=== PATIENT | male | born 1940 | race Caucasian/White ===

== ENCOUNTER 2016-09-05 09:16 | Emergency (ER) | payer OTHER ==
[~2016-09-05] VITALS: Ht 172.7 cm; Wt 72.6 kg
[~2016-09-05 09:16] MED LIST: ALPRAZOLAM0.5 M2 PO; ASACOL400 MG; ASPIRIN CHEWABL81 MG PO; ASPRIN; ATORVASTATIN CA10 M1 PO; AZULFIDINE ENT500 MG PO; BENTYL10 MG PO; BENTYL20 MG PO; CALMOSEPTINE1 OIN TP; CITALOPRAM10 MG PO; CRESTOR40 M1 PO; CRESTOR40 MG; EXELON9.5 MG/24 T; FLORASTOR250 MG PO; FLUOXETINE HCL20 MG; GLYBURIDE2.5 MG PO; LANTUS100 U/ML SC; METFORMIN HCL1000 MG; METFORMIN1000 MG PO; MIRTAZAPINE30 M2 PO; NORVASC10 MG PO; NOVOLOG FLEX100 U/ML SC; OMEPRAZOLE20 MG; PLAVIX75 M1 PO; PRAVASTATIN SOD20 MG PO; PRILOSEC20 M2 PO; PRINIVIL10 MG PO; PROMETHAZINE25 MG RC; TRAMADOL HCL; TRAMADOL HCL50 MG PO; VITAMIN D-32000 UNIT PO; ZYPREXA2.5 MG PO; Zofran4 MG PO
[2016-09-05] MEDS ORDERED: PANTOPRAZOLE SO40 MG PO (09:24)
[2016-09-05] MEDS ORDERED: REMERON15 M2 PO (09:24)
[2016-09-05] MEDS ORDERED: ATORVASTATIN CA20 M1 PO (09:25)
[2016-09-05] MEDS ORDERED: LEVOTHYROXINE0.05 MG PO (09:26)
[2016-09-05] MEDS ORDERED: [UNRECOGNIZED DRUG - OTHER] PO (09:26)
[2016-09-05] MEDS ORDERED: XANAX0.5 MG PO (09:27)
[2016-09-05 09:43] LABS: BASO % 0.4 % (0.0-1.0); EOS # 0.2 10*3/uL (0.0-0.4); EOS % 2.6 % (1.0-4.0); HEMATOCRIT 35.6 % (42.0-52.0); LYMPH # 1.4 10*3/uL (1.3-4.4); LYMPH % 17.4 % (27.0-41.0); MEAN CELL VOLUME 95.4 fl (80.0-94.0); MEAN CORPUSCULAR HGB 32.2 pg (27.0-31.0); MEAN CORPUSCULAR HGB CONC 33.7 g/dl (33.0-37.0); MEAN PLATELET VOLUME 9.7 fl (9.6-12.3); MONO # 0.6 10*3/uL (0.1-1.0); MONO % 6.9 % (3.0-9.0); NEUT # 5.8 10*3/uL (2.3-7.9); NEUT % 72.3 % (47.0-73.0); PLATELET COUNT AUTOMATED 148 10*3/uL (130-400); RED BLOOD COUNT 3.73 10*6/uL (4.50-5.90); RED CELL DISTRI WIDTH 13.2 % (0-14.5)
[2016-09-05 09:59] LABS: ALBUMIN 3.8 gm/dl (3.1-4.5); ALKALINE PHOSPHATASE 49 U/L (45-117); BILIRUBIN, TOTAL 0.3 mg/dl (0.2-1.0); BUN 28 mg/dl (7-24); CARBON DIOXIDE 28 mmol/L (21-32); CHLORIDE 105 mmol/L (98-107); EST GLOM FILT AFRICAN AMERICAN > 60 ml/min; GLUCOSE 125 mg/dL (65-99); POTASSIUM 4.5 mmol/L (3.5-5.1); SGOT/AST 16 IU/L (3-35); SGPT/ALT 12 U/L (12-78); SODIUM 139 mmol/L (136-145); TOTAL PROTEIN 7.2 gm/dL (6.4-8.2)
[2016-09-05 10:03] LABS: BILIRUBIN NEGATIVE (NEGATIVE); BLOOD NEGATIVE (NEGATIVE); CLARITY CLEAR (CLEAR); COLOR YELLOW (YELLOW); GLUCOSE NEGATIVE (NEGATIVE); KETONE NEGATIVE (NEGATIVE); LEUKO ESTERASE NEGATIVE (NEGATIVE); NITRITE NEGATIVE (NEGATIVE); PH 5.5 (5.0-9.0); PROTEIN 1+ (NEGATIVE); SPECIFIC GRAVITY >= 1.030 (1.005-1.030); UROBILINOGEN 0.2 E.U./dl (0.2-1.0)
[2016-09-05 10:12] LABS: BACTERIA TRACE; EPITHELIAL CELLS 0-2; MUCOUS 1+; URINE REFLEX COMMENT NO (NO); WBC 0-2 wbc/hpf (0-5)
== END 2016-09-05 11:52 | disposition home or self-care (01) ==
LOC: ED 09:16
PROVIDERS: Emergency Medicine
DX: G89.29 Other chronic pain (principal); R10.84 Generalized abdominal pain; I25.2 Old myocardial infarction; E11.65 Type 2 diabetes mellitus with hyperglycemia; Z95.5 Presence of coronary angioplasty implant and graft; Z86.73 Personal history of transient ischemic attack (TIA), and cerebral infarction without residual deficits; Z90.89 Acquired absence of other organs; Z87.891 Personal history of nicotine dependence; Z79.899 Other long term (current) drug therapy; Z91.011 Allergy to milk products; Z88.8 Allergy status to other drugs, medicaments and biological substances

== ENCOUNTER 2019-06-26 14:32 | Emergency (ER) | payer OTHER ==
[~2019-06-26] VITALS: Wt 70.3 kg
[~2019-06-26 14:32] MED LIST changes: +ATORVASTATIN CA20 M1 PO; +DIVALPROEX SOD250 MG PO; +EXELON13.3 MG/21 T; +LEVOTHYROXINE50 MCG PO; +LIPITOR20 MG PO; +LISINOPRIL20 MG PO; +MEMANTINE HCL10 MG PO; +MIRTAZAPINE15 M2 PO; +PANTOPRAZOLE SO40 MG PO; +REMERON15 M2 PO; +RESTORIL15 MG PO; +SULFASALAZINE500 M1 PO; +VITAMIN D-32000 UNI1 PO; -VITAMIN D-32000 UNIT PO; +XANAX0.5 MG PO; +[UNRECOGNIZED DRUG - OTHER] PO
[2019-06-26 15:20] LABS: BASO % 0.4 % (0.0-1.0); EOS # 0.2 10*3/uL (0.0-0.4); EOS % 2.2 % (1.0-4.0); HEMATOCRIT 34.7 % (42.0-52.0); HEMOGLOBIN 11.3 g/dl (14.0-18.0); LYMPH # 1.8 10*3/uL (1.3-4.4); LYMPH % 26.3 % (27.0-41.0); MEAN CELL VOLUME 94.6 fl (80.0-94.0); MEAN CORPUSCULAR HGB 30.8 pg (27.0-31.0); MEAN CORPUSCULAR HGB CONC 32.6 g/dl (33.0-37.0); MEAN PLATELET VOLUME 9.8 fl (9.6-12.3); MONO # 0.6 10*3/uL (0.1-1.0); MONO % 8.2 % (3.0-9.0); NEUT # 4.4 10*3/uL (2.3-7.9); NEUT % 62.6 % (47.0-73.0); PLATELET COUNT AUTOMATED 174 10*3/uL (130-400); RED BLOOD COUNT 3.67 10*6/uL (4.50-5.90)
[2019-06-26 15:34] LABS: ALBUMIN 3.6 gm/dl (3.1-4.5); ALKALINE PHOSPHATASE 52 U/L (45-117); BUN 27 mg/dl (7-24); CHLORIDE 104 mmol/L (98-107); CREATININE 1.82 mg/dL (0.70-1.30); POTASSIUM 3.9 mmol/L (3.5-5.1); SGOT/AST 17 IU/L (3-35); SGPT/ALT 14 U/L (12-78); SODIUM 138 mmol/L (136-145); TOTAL PROTEIN 7.1 gm/dL (6.4-8.2)
[2019-06-26 15:41] LABS: ACETAMINOPHEN (TYLENOL) < 5.0 ug/ml (10-30); ETHYL ALCOHOL < 3.0 mg/dl (<3)
[2019-06-26 17:13] LABS: URINE AMPHETAMINES < 1000 (1000ng/ml); URINE BARBITURATES < 200 (200ng/ml); URINE BENZODIAZEPINES < 200 (200ng/ml); URINE CANNABINOIDS (THC) < 50 (50ng/ml); URINE COCAINE < 300 (300ng/ml); URINE METHADONE < 300 (300ng/ml); URINE OPIATES < 300 (300ng/ml)
[2019-06-26 17:17] LABS: BILIRUBIN NEGATIVE (NEGATIVE); CLARITY CLEAR (CLEAR); COLOR YELLOW (YELLOW); GLUCOSE NEGATIVE (NEGATIVE); KETONE NEGATIVE (NEGATIVE); SPECIFIC GRAVITY 1.015 (1.005-1.030); URINE PHENCYCLIDINE < 25 (25ng/ml)
[2019-06-26 17:18] LABS: BLOOD TRACE-INTACT (NEGATIVE); LEUKO ESTERASE 2+ (NEGATIVE); NITRITE NEGATIVE (NEGATIVE); UROBILINOGEN 0.2 E.U./dl (0.2-1.0)
[2019-06-26 17:19] LABS: RBC 0-2 rbc/hpf (0-2)
== END 2019-06-27 16:56 | disposition short-term general hospital (02) ==
LOC: ED 14:32
PROVIDERS: Nurse Practitioner Family
DX: N12 Tubulo-interstitial nephritis, not specified as acute or chronic (principal); N39.0 Urinary tract infection, site not specified; R41.82 Altered mental status, unspecified; I12.9 Hypertensive chronic kidney disease with stage 1 through stage 4 chronic kidney disease, or unspecified chronic kidney disease; E11.22 Type 2 diabetes mellitus with diabetic chronic kidney disease; N18.3 Chronic kidney disease, stage 3 (moderate); E03.9 Hypothyroidism, unspecified; J44.9 Chronic obstructive pulmonary disease, unspecified; I25.2 Old myocardial infarction; Z79.899 Other long term (current) drug therapy

== ENCOUNTER 2019-10-17 10:42 | Inpatient (IN) | payer OTHER ==
[~2019-10-17] VITALS: Ht 182.8 cm; Wt 73.9 kg
[2019-10-17 10:51] VITALS: BP 146/66
--- NOTE | 2019-10-17 11:02 | NUR ---
PATIENT DENIES WOUNDS A&OX3.
[2019-10-17 11:22] LABS: BASO # 0.1 10*3/uL (0.0-0.1); BASO % 0.6 % (0.0-1.0); EOS # 0.2 10*3/uL (0.0-0.4); EOS % 2.1 % (1.0-4.0); HEMATOCRIT 35.1 % (42.0-52.0); LYMPH # 1.5 10*3/uL (1.3-4.4); LYMPH % 16.4 % (27.0-41.0); MEAN CELL VOLUME 96.2 fl (80.0-94.0); MEAN CORPUSCULAR HGB 32.1 pg (27.0-31.0); MEAN CORPUSCULAR HGB CONC 33.3 g/dl (33.0-37.0); MONO # 0.7 10*3/uL (0.1-1.0); MONO % 7.3 % (3.0-9.0); NEUT # 6.5 10*3/uL (2.3-7.9); NEUT % 73.4 % (47.0-73.0); PLATELET COUNT AUTOMATED 176 10*3/uL (130-400); RED BLOOD COUNT 3.65 10*6/uL (4.50-5.90); RED CELL DISTRI WIDTH 13.2 % (0-14.5); WHITE BLOOD COUNT 8.9 10*3/uL (4.8-10.8)
[2019-10-17 11:31] LABS: ACT PARTIAL THROMBO TIME 23.9 SECONDS (20.0-32.1); INTERNATIONAL NORM RATIO 0.9 (2.0-3.5)
[2019-10-17 11:37] LABS: ALBUMIN 3.5 gm/dl (3.1-4.5); ALKALINE PHOSPHATASE 60 U/L (45-117); BUN 16 mg/dl (7-24); CHLORIDE 105 mmol/L (98-107); CREATININE 1.35 mg/dL (0.70-1.30); LIPASE 132 U/L (73-393); POTASSIUM 4.1 mmol/L (3.5-5.1); SGOT/AST 11 IU/L (3-35); SGPT/ALT 13 U/L (12-78); SODIUM 136 mmol/L (136-145); TOTAL PROTEIN 7.7 gm/dL (6.4-8.2)
[2019-10-17 11:39] LABS: TROPONIN I 0.057 ng/ml (<0.045)
[2019-10-17 11:41] LABS: BILIRUBIN NEGATIVE (NEGATIVE); BLOOD NEGATIVE (NEGATIVE); CLARITY CLEAR (CLEAR); COLOR YELLOW (YELLOW); GLUCOSE 1+ (NEGATIVE); KETONE NEGATIVE (NEGATIVE); NITRITE NEGATIVE (NEGATIVE); UROBILINOGEN 0.2 E.U./dl (0.2-1.0)
[2019-10-17 11:46] LABS: EPITHELIAL CELLS 0-2; LEUKO ESTERASE TRACE (NEGATIVE)
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
--- NOTE | 2019-10-17 13:22 | NUR ---
[facility] STATES THAT THEY WILL ACCEPT PATIENT AND WILL BE DOWN SHORTLY TO TAKE PATIENT TO [facility].
--- NOTE | 2019-10-17 13:35 | NUR ---
[facility] HERE AT THIS TIME. REPORT GIVEN TO [facility] NURSE SEFERINO.
[2019-10-17 13:40] VITALS: BP 153/69
[2019-10-17] MEDS ORDERED: SENNA PLUS 8.61 EACH PO (13:44)
[2019-10-17] MEDS ORDERED: AMLODIPINE BESY10 MG PO (13:46)
[2019-10-17] MEDS ORDERED: REMERON15 M2 PO (13:47)
[2019-10-17] MEDS ORDERED: NAMENDA10 MG PO (13:48)
[2019-10-17] MEDS ORDERED: NATURE'S BLEND F1 MG PO (13:49)
[2019-10-17] MEDS ORDERED: COREG12.5 M1 PO (13:49)
[2019-10-17] MEDS ORDERED: XANAX0.25 MG PO (13:52)
--- NOTE | 2019-10-17 14:12 | NUR ---
NIXON COLLINS a 79 year old M admitted via wheel chair from the EMERGENCY ROOM as a emergency 72 hr. hold admission. Arrived on unit at 1340 . ALLERGIES: NKA . Vital signs are: 97.3-59-18 153/69. PT REFUSED TO SIGN ANY PAPERWORK STATING "THIS IS THE WORST PLACE IN THE WORLD." PT ALERT TO PERSON ONLY. PT IRRITABLE WITH STAFF, UNCOOPERATIVE WITH ASSESSMENT. PT REFUSED SKIN ASSESSMENT. PT PULLED OUT A WALLET AND A POCKET FULL OF CAHNGE, REFUSING TO GIVE THEM TO STAFF. WE WILL ATTEMPT AT A LATER TIME. PT AMBUALTORY, GAIT UNSTEADY AT TIMES DUE TO RIGHT SIDED WEAKNESS. STAFF ATTEMPTED TO ORDER PT DINNER AND PT STATED "I AIN'T EATING NOTHING, IF U GIVE ME SOMETHING I WILL PISS ON IT." STAFF LEFT ALONE TO CALM. STAFF WILL CONTINUE TO MONITOR PT BEHAVIORS. SEFERINO OLIVA
--- NOTE | 2019-10-17 14:38 | NUR ---
SPOKE WITH DR ANNA RE: MEDICAL MANAGEMENT CONSULT NEEDED PER DR MARADIAGA CONSULT UNDER DR LOUIS.
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
--- NOTE | 2019-10-17 14:53 | NUR ---
SPOKE WITH DR ANNA, RE: EKG RESULTS PER HE WILL TAKE A LOOK, ADVISED DR THAT EKG IS STATING ST ELEVATION SUGGESTS ACUTE PERICARDITIS. PER HE WILL TAKE A LOOK.
--- NOTE | 2019-10-17 15:07 | NUR ---
DR LOUIS AND DR ANNA ON UNIT TO ASSESS PT, UPDATE PROVIDED.
--- NOTE | 2019-10-17 15:24 | NUR ---
LUAN FROM LAB CALLED CRITICAL TROPONIN OF 0.060. DR ANNA UPDATED, NO FURTHER ORDERS AT THIS TIME.
--- NOTE | 2019-10-17 15:37 | NUR ---
PT SHOWERED AT THIS TIME. STAFF WAS ABLE TO LOCK UP HIS WALLET, CHANGE AND BELT. PT COOPERATIVE WITH SHOWER.
--- NOTE | 2019-10-17 15:50 | NUR ---
GROUP B/CRAFTS PT DID NOT ATTEND GROUP THERAPY. PT HAD JUST BEEN ADMITTED TO THE UNIT AND WAS BEING ORIENTED DURING GROUP
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
--- NOTE | 2019-10-17 18:16 | NUR ---
SPOKE WITH DR ANNA AT [phone] RE: PT EKG READY FOR REVIEW. NO FURTHER ORDERS AT THIS TIME.
--- NOTE | 2019-10-17 18:42 | NUR ---
SPOKE WITH DR ANNA AND ADVISED OF CRITICAL TROPONIN OF 0.055 STATED "OK THATS WHAT I EXPECTED. NO FURTHER ORDERS AT THIS TIME.
[2019-10-17 20:00] VITALS: BP 148/74
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
--- NOTE | 2019-10-17 20:43 | NUR ---
CLIENT AGREED TO TAKE ALL MEDICATIONS. IN AND OUT OF ROOM. NO OUTBURSTS AT THIS TIME.
--- NOTE | 2019-10-17 20:46 | NUR ---
CLIENT AGREED TO TAKE ALL MEDICATIONS. IN AND OUT OF ROOM. NO OUTBURSTS AT THIS TIME.
--- NOTE | 2019-10-18 01:47 | NUR ---
AWAKE AND DISORIENTED. REORIENTED TO PLACE AND TIME AND THAT FAMILY IS AWARE THAT HE IS HERE. EMOTIONAL SUPPORT PROVIDED AND HE RETURNED TO BED
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
--- NOTE | 2019-10-18 03:06 | NUR ---
WOUND CARE HERE TO SEE CLIENT
--- NOTE | 2019-10-18 03:30 | NUR ---
INCREASE IN ANXIETY. REQUESTING SOMETHING TO CALM HIM DOWN. NO SHORT TERM MEMORY NOTED. ATIVAN IM GIVEN
--- NOTE | 2019-10-18 05:29 | NUR ---
24 HR chart check completed.
[2019-10-18 06:32] LABS: BASO % 0.6 % (0.0-1.0); EOS # 0.2 10*3/uL (0.0-0.4); EOS % 3.5 % (1.0-4.0); HEMATOCRIT 34.8 % (42.0-52.0); LYMPH # 1.4 10*3/uL (1.3-4.4); LYMPH % 20.7 % (27.0-41.0); MEAN CELL VOLUME 95.3 fl (80.0-94.0); MEAN CORPUSCULAR HGB 32.1 pg (27.0-31.0); MEAN CORPUSCULAR HGB CONC 33.6 g/dl (33.0-37.0); MEAN PLATELET VOLUME 9.4 fl (9.6-12.3); MONO # 0.5 10*3/uL (0.1-1.0); MONO % 7.3 % (3.0-9.0); NEUT # 4.7 10*3/uL (2.3-7.9); NEUT % 67.3 % (47.0-73.0); PLATELET COUNT AUTOMATED 162 10*3/uL (130-400); RED BLOOD COUNT 3.65 10*6/uL (4.50-5.90); RED CELL DISTRI WIDTH 13.2 % (0-14.5); WHITE BLOOD COUNT 6.9 10*3/uL (4.8-10.8)
[2019-10-18 06:49] LABS: ALBUMIN 3.6 gm/dl (3.1-4.5); BUN 19 mg/dl (7-24); CHLORIDE 102 mmol/L (98-107); CHOLESTEROL 120 mg/dL (<200); CREATININE 1.23 mg/dL (0.70-1.30); POTASSIUM 3.8 mmol/L (3.5-5.1); SGOT/AST 14 IU/L (3-35); SGPT/ALT 14 U/L (12-78); SODIUM 135 mmol/L (136-145); TRIGLYCERIDES 124 mg/dl (<150); VLDL CHOLESTEROL 25 mg/dL (6-40)
[2019-10-18 06:58] LABS: ALKALINE PHOSPHATASE 59 U/L (45-117); HDL CHOLESTEROL 40 mg/dl (40-60); LDL CHOLESTEROL 55 mg/dL (9-159); TOTAL PROTEIN 7.5 gm/dL (6.4-8.2)
[2019-10-18 07:49] VITALS: BP 142/65
[2019-10-18 08:12] LABS: VITAMIN D, 25-HYDROXY 30.5 ng/mL (30-100)
--- NOTE | 2019-10-18 08:27 | NUR ---
SPOKE WITH SON NIXON COLON, WHO STATED HE WILL BE GETTING THE POA PAPERS AND BRINGING THEM TO US TODAY.
--- NOTE | 2019-10-18 09:00 | NUR ---
Treatment Plan meeting was held via telephone with Dr. Cano, RN, AT, MANAGER CORPORATE MARKETING-S and Clothes Designer. Plan for discharge Next Week. Pt. will require placment according to Nursing Staff. Will follow with family to discuss discharge Plans.
--- NOTE | 2019-10-18 09:58 | NUR ---
PT AGITATED WITH STAFF, EXIT SEEKING, CURSING AT STAFF, PINCHING, ATTEMPTING TO HIT, YELLING OUT. STAFF PROVIDED EMOTIONAL SUPPORT AND 1:1 FOR PT TO VOICE FEELINGS, PT CONTINUES TO SWING AT STAFF AND CURSE AND NAME CALLING. PT MEDICATED WITH ATIVAN IM PRN PER ORDERS. WILL CONTINUE TO MONITOR.
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
--- NOTE | 2019-10-18 10:45 | NUR ---
GEOFORTINOON EFEFCTIVE, NO FURTHER BEHAVIORS NOTED, PT RESTING QUIETLY WITH EYES CLOSED. WILL CONTINUE TO MONITOR.
--- NOTE | 2019-10-18 11:41 | NUR ---
AM GROUP/RELAXATION PT WAS UNABLE TO ATTEND MORNING GROUP THERAPY. PT WAS IN THE HALLWAY FOR OBSERVATION.
--- NOTE | 2019-10-18 13:15 | NUR ---
SPOKE WITH DR COX RE: PT CURRENTLY SLEEPING AND DUE FOR DEPAKOTE AT THIS TIME, PER DR COX HOLD DEPAKOTE UNTIL PT AWAKE.
--- NOTE | 2019-10-18 14:18 | NUR ---
SILVANO QUIÑONEZ FROM [facility] APPROVED FROM 10/16-10/20 WITH NEXT REVIEW DATE 10/21 WITH RENETTA AT [phone] EXT [phone]. AUTH NUMBER IS [id number].
--- NOTE | 2019-10-18 14:30 | NUR ---
Family meeting held with pt's son Yaya García via phone. Yaya provided additional pt information and events which led to pt's [facility] admission. Indepth discussion about discharge plan. Provided education about payer source for NF and AL. Yaya García would like a referral to [facility]. If pt's behaviors improve to where pt would be appropriate for AL, Yaya would like a referral to [facility] [place] for their memory care unit. Spoke to Yaya García about DPOAHC. He states that he has the document and will bring it in when he drops clothing off for pt.
--- NOTE | 2019-10-18 14:53 | NUR ---
PT WOKE UP, BEGAN ATTEMPTING TO CLIMB OUT OF GERICHAIR, THREATENING STAFF. PT STATED " I'LL FUING BACKHAND YOU AND SEE HOW YOU LIKE THAT." PT REFUSED AFTERNOON DEPAKOTE. ATTEMPTED TO BITE AND HIT STAFF. STAFF OFFERED PT A DRINK, PT REFUSED. STAFF PROVIDED EMOTIONAL SUPPORT AND 1:1 FOR PT TO VOICE FEELINGS, PT STATED "YOU MOTHERFER, GET OVER HERE AND I'LL LINING STITCHER YOU SO HARD YOUR TEETH WILL FALL OUT." PT CONTINUES TO YELL OUT, ATTEMPTING TO STRIKE STAFF. SPOKE WITH DR COX AND UPDATED ON SITUATION, PER DR COX D/C DEPAKOTE AND VERBAL ORDERS GIVEN FOR HALDOL 5 MG PO OR IM IF PT REFUSES, BID TO START NOW. IM HALDOL GIVEN PER ORDERS, SECURITY ON UNIT TO ASSIST. PT ALSO PICKING AT SKIN CAUSING A SKIN TEAR TO LEFT UPPER FOREARM AND LEFT WRIST AREA. WILL CONTINUE TO MONITOR PT.
--- NOTE | 2019-10-18 15:33 | NUR ---
ATTEMPTED TO CALL DR ANNA RE: NEEDING SKIN TEAR ORDERS FOR PT LEFT UPPER ARM AND LEFT THUMB AREA.
--- NOTE | 2019-10-18 15:35 | NUR ---
DR ANNA RETURNED CALL AND UPDATED ON NEED FOR SKIN TEAR ORDERS.
--- NOTE | 2019-10-18 15:39 | NUR ---
GROUP B PT IS UNABLE TO ATTEND GROUP THERAPY AT THIS TIME. PT WAS IN A QUIET ROOM RESTING.
--- NOTE | 2019-10-18 16:18 | NUR ---
HALDOL EFFECTIVE, PT RESTING QUIETLY IN GERICHAIR WITH EYES CLOSED.
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
[2019-10-18 20:00] VITALS: BP 143/63
--- NOTE | 2019-10-19 00:25 | NUR ---
24 HR chart check completed.
--- NOTE | 2019-10-19 02:16 | NUR ---
TOOK TO TOILET AND HE BEGAN SWINGING, KICKING AND TRYING TO BITE. UNABLE TO REDIRECT. CLIENT VOIDED THEN STARTED AGGRESSIVELY STRIKING OUT. SEATED FOR SAFETY WITH 3 STAFF ASSISTANCE. ATIVAN 1MG IM GIVEN
[2019-10-19 08:00] VITALS: BP 138/68
--- NOTE | 2019-10-19 08:08 | NUR ---
NIXON COLLINS [id number] Please refer to the physician's history and physical for past medical history, comorbid conditions, and allergies. Diagnosis: BRIEF PSYCHOTIC DISORDER Hernandez Score: 20,LOW OR NO RISK WOUND DESCRIPTIONS: Wound Number: 1 Location of the wound: left elbow Type of wound: skin tear Thickness: Partial Size: 0.4cm x 0.6cm x 0.1cm Tunneling: none Undermining: none Sinus Tract: none Presence of Exudate: Serosanguineous Amount: Light Color: Red Odor: None Periwound Skin Appearance: ecchymotic Wound edges: approximated Pain (associated with wound): none at time of assessment How does patient state this happened? pt unable to state how this happened Wound Number: 2 Location of the wound: right elbow Type of wound: skin tear Thickness: Partial Size: 1.5cm x 0.6cm x 0.1cm Tunneling: none Undermining: none Sinus Tract: none Presence of Exudate: Serosanguineous Amount: Light Color: Red Odor: None Periwound Skin Appearance: ecchymotic Wound edges: approximated Pain (associated with wound): none at time of assessment How does patient state this happened? pt unable to state how this happened Wound Number: 3 Location of the wound: left upper forearm Type of wound: skin tear Thickness: Partial Size: 0.8cm x 0.3cm x 0.1cm Tunneling: none Undermining: none Sinus Tract: none Presence of Exudate: Serosanguineous Amount: Light Color: Red Odor: None Periwound Skin Appearance: ecchymotic Wound edges: approximated Pain (associated with wound): none at time of assessment How does patient state this happened? pt unable to state how this happened Wound Number: 4 Location of the wound: left dorsal aspect of hand near thumb area Type of wound: skin tear Thickness: Partial Size: 1.5cm x 0.6cm x 0.1cm Tunneling: none Undermining: none Sinus Tract: none Presence of Exudate: Serosanguineous Amount: Light Color: Red Odor: None Periwound Skin Appearance: ecchymotic Wound edges: approximated Pain (associated with wound): none at time of assessment How does patient state this happened? pt unable to state how this happened Surface the patient is resting on: Proform SKIN PREVENTION RECOMMENDATION: 1. Pressure redistribution support surface as appropriate 2. Elevate heels 3. Remove boots/TEDS every shift and reapply 4. Head of bed 30 degrees as tolerated 5. Assess nutrition and hydration 6. Manage moisture 7. Avoid the use of containment devices while in bed 8. Use absorptive products on surfaces limit layers of linens on bed 9. Turn and reposition every 1-2 hours in bed and every 1 hour in chair as tolerated 10. Weight shifts every 15 minutes while up in chair 11. Offloading with pillows or device to keep heels elevated off bed 12. Monitor skin at least every shift 13. Inspect under medical devices twice a day WOUND TREATMENT RECOMMENDATIONS: Continue skin tear guidelines to right elbow, left elbow, left upper forearm and left dorsal aspect of hand near thumb cleanse with nss and apply sureprep around the wound hydrogel to wound bed and cover with optifoam gentle every 2 days and prn for soiling.
--- NOTE | 2019-10-19 08:50 | NUR ---
OT NOTE Occupational therapy evaluation received and chart reviewed. Patient medicated for behavior and was unable to arouse for OT evaluation at this time. Will return at a later date for completion of an OT evaluation. June Bello, OTR/L
--- NOTE | 2019-10-19 09:00 | NUR ---
Treatment Plan meeting wasn held this a.m. with MALENA Smith, RN, AT, ART STUDIO TEACHER-S and Lan Specialist. Plan for discharge Next Week. Pt. is for placement due to family unable to care for patient at home. Son requests referral to [facility].
--- NOTE | 2019-10-19 09:22 | NUR ---
PHYSICAL THERAPY Physical therapy evaluation attempted. Patient medicated for behaviors and unable to arouse for PT services at this time. Will return at a later date to complete PT evaluation. Thank you. Lilia Moore,PT,DPT
--- NOTE | 2019-10-19 09:59 | NUR ---
Dr. Hillman notified of wound care recommendations.
--- NOTE | 2019-10-19 11:36 | NUR ---
Spoke with pt's son Yaya , update given, states he will bring in DPOA papers today with clothes for pt.
--- NOTE | 2019-10-19 11:39 | NUR ---
AM GROUP PT IS UNABLE TO ATTEND GROUP THERAPY AT THIS TIME. PT WAS IN A QUIET ROOM RESTING.
--- NOTE | 2019-10-19 11:53 | NUR ---
Nutritional Support Services Note: Staff to encourage good intake of meals and snacks. Skin tears noted. Will follow if needed. Regular diet as ordered. Trinity Herman Rdn Ld
--- NOTE | 2019-10-19 12:30 | NUR ---
JAVIER returns. Pt. approved for Nursing Facility Placement.
--- NOTE | 2019-10-19 13:38 | NUR ---
GROUP A PT IS UNABLE TO ATTEND GROUP THERAPY AT THIS TIME DUE TO COGNITIVE IMPAIRMENT. PT WAS IN A QUIET ROOM RESTING.
--- NOTE | 2019-10-19 15:34 | NUR ---
Shift chart check completed.
--- NOTE | 2019-10-19 15:42 | NUR ---
GROUP B PT WAS PRESENT AT THE START OF GROUP THERAPY BUT BEGAN EXIT SEEKING AND WAS TRYING TO SLIDE OUT OF THE MOY CHAIR UNDER THE TRAY. PT WAS REMOVED AND PLACED IN THE HALLWAY FOR OBSERVATION BY NURSES.
--- NOTE | 2019-10-19 17:13 | NUR ---
P: CONFUSION, IRRITABLE AND UNPROVOKED AGGRESSION, GRABBING AT MENTAL HEALTH WORKER SHE WALKED BY AND ATTEMPTING TO CLIMB OUT OF CHAIR, HIGH FALL RISK. I: ONE ON ONE, REDIRECTION AND CHANGE OF ENVIRONMENT WITH LOW STIMULI PROVIDED R: EFFECTIVE. PATIENT IS ALERT TO PERSON ONLY WITH CONFUSION. PATIENT REPORTED "THE PRESIDENT WITH A VERY GOOD FRIENT OF MINE". LONG/SHORT TERM MEMORY DEFICITS. MOOD IS IRRITABLE AND AGGRESSIVE, ARGUEMENTIVE AT TIMES. DENIES ANY HALLUCINATIONS, DELUSIONS, HI/SI OR PAIN. NO RESPONSE TO INTERNAL STIMULI OBSERVED. PATIENT WANTING DISCHARGE. PATIENT INTERACTIVE WITH NURSING STAFF AND PARTICIPATED IN GROUP SESSION UNITL BEING DISRUPTIVE AND REMOVED FROM AFTERNOON GROUP. MEDICATION COMPLIANT. Q 15 MINUTE SAFETY CHECKS MAINTAINED. 2 PERSON ASSIST WITH ACTIVITIES OF DAILY LIVING, INCONTINENT OF BOWEL AND BLADDER. SET UP FOR MEALS, INTAKES ARE GOOD WITH ADEQUATE FLUID. AMBULATES WITH 2 STAFF ASSIST. P: CONTINUE TO MONITOR FOR AGGRESSION. PROVIDE ONE ON ONE, REDIRECTION/ORIENTATION, PROVIDING SPACE AND DIVERSIONAL ACTIVITY NEEDED.
[2019-10-19 20:00] VITALS: BP 128/89
--- NOTE | 2019-10-20 01:19 | NUR ---
P-CONFUSION I-REDIRECTION WITH 1:1 THERAPEUTIC INTERVENTIONS AND COMMUNICATION. PRESENT REALITY. EDUCATE AND ENCOURAGE MEDICATION COMPLIANCE R-MEDICATION COMPLIANT AT HS. PATIENT PROVIDED NOURISHMENT AND FLUIDS AT HS. PATIENT SHOWERED THIS SHIFT. PATIENT WITH NO HALLUCINATIONS OR DELUSIONS. PATIENT WITH NO HOMICIDAL IDEATIONS AND DENIES SUICIDAL IDEATIONS AT THIS TIME. P-CONTINUE TO ENCOURAGE MEDICATION COMPLIANCE, CONTINUE TO PRESENT REALITY. ENCOURAGE GROUP THERAPY WHILE AWAKE
--- NOTE | 2019-10-20 02:50 | NUR ---
Patient attempting to climb out of bed without assistance. Patient bumped hand of bed rail and night stand. Bed alarm sounding. Skin tears to right hand with small amount of drainage. Patient assisted to bathroom with assist x 2. Dr. Martínez updated regarding new skin areas. Son, Yaya García, notified. Nursing open pit quarry supervisor aware. Awaiting new orders. Skin tears cleansed and dressing applied at this time
--- NOTE | 2019-10-20 04:51 | NUR ---
PATIENT WITH 6 HOURS OF SLEEP THROUGHOUT SHIFT. Q 15 MINUTE CHECKS MAINTAINED. 24 HR chart check completed.
[2019-10-20 07:49] VITALS: BP 128/53
--- NOTE | 2019-10-20 08:49 | NUR ---
PT IRRITABLE, VERBALLY AGGRESSIVE, CONFUSED, DEMANDING. PT PROVIDED WITH 1:1, ENCOURAGED TO VERBALIZE THOUGHTS, BREAKFAST PROVIDED, ASSISTED TO BATHROOM, REDIRECTED AND REORIENTED. ALL INTERVENTIONS INEFFECTIVE, PT REMAINS UNREDIRECTABLY AGITATED. ATIVAN 1MG PO GIVEN AT THIS TIME FOR AGITATION. WILL CONTINUE TO MONITOR Q15 MIN FOR SAFETY. WILL CONTINUE TO REORIENT AND REDIRECT APPROPRIATE.
--- NOTE | 2019-10-20 11:25 | NUR ---
PRN ATIVAN IS INEFFECTIVE AT THIS TIME. PT IS HITTING, BITING, STANDING IN THE MIDDLE OF THE NAVARRO KICKING AND THREATENING STAFF. SECURITY CALLED FOR BACKUP. KATH ZARCO, MADE AWARE OF PT'S INCREASING AGGRESSION, STATES TO UTILIZE GEODON 10MG IM PER PRN ORDER. GEODON 10MG IM GIVEN TO RIGHT DELTOID AT THIS TIME.
--- NOTE | 2019-10-20 13:30 | NUR ---
BENIGNO GARCIADON EFFECTIVE AT THIS TIME. PT IS RESTING QUIETLY.
[2019-10-20 20:00] VITALS: BP 136/69
--- NOTE | 2019-10-20 23:42 | NUR ---
P-CONFUSION I-REDIRECTION WITH 1:1 THERAPEUTIC INTERVENTIONS AND COMMUNICATION. PRESENT REALITY. EDUCATE AND ENCOURAGE MEDICATION COMPLIANCE R-MEDICATION COMPLIANT AT HS. PATIENT PROVIDED NOURISHMENT AND FLUIDS AT HS. PATIENT WITH INCREASED AGITATION AND AGGRESSION. PATIENT WITH ATTEMPT PUSH TABLE AGAIST OTHER PEERS. PATIENT REMOVED AND 1:1 THERAPEUTIC COMMUNICATION AND DISTRACTION PROVIDED WITH INEFFECTIVE RESULTS. PATIENT AGGRESSIVE WITH NURSING STAFF. PATIENT MEDICATED WITH ATIVAN 1MG PO WITH SOMEWHAT EFFECTIVE RESULTS AT THIS TIME. PATIENT WITH NO HALLUCINATIONS OR DELUSIONS. PATIENT WITH NO HOMICIDAL IDEATIONS AND DENIES SUICIDAL IDEATIONS AT THIS TIME. P-CONTINUE TO ENCOURAGE MEDICATION COMPLIANCE, CONTINUE TO PRESENT REALITY. ENCOURAGE GROUP THERAPY WHILE AWAKE
--- NOTE | 2019-10-21 06:26 | NUR ---
PATIENT SLEPT 3 HOURS OF INTERRUPTED SLEEP THROUGHOUT SHIFT. Q 15 MINUTE CHECKS MAINTAINED. 24 HR chart check completed.
[2019-10-21 08:09] VITALS: BP 144/63
--- NOTE | 2019-10-21 11:07 | NUR ---
DR LOUIS AND DR PINON ON UNIT TO ASSESS PT, UPDATE PROVIDED.
--- NOTE | 2019-10-21 13:21 | NUR ---
PT ATTEMPTING TO CLIMB OUT OF GERICHAIR AND YELLING OUT. STAFF PROVIDED EMOTIONAL SUPPORT AND 1:1 FOR PT TO VOICE FEELINGS, PROVIDED LOW STIMULATION ENVIRONMENT FOR PT TO CALM. PT CONTINUES TO YELL OUT, ATTEMPTING TO BITE, KICK AND HIT. STAFF UNABLE TO REDIRECT, OR CALM PT. PT MEDICATED WITH ATIVAN IM PRN PER ORDERS WILL CONTINUE TO MONITOR/
--- NOTE | 2019-10-21 16:26 | NUR ---
PT REFUSED TO HAVE DRESSINGS CHANGED.
[2019-10-21 16:48] VITALS: BP 160/63
[2019-10-21 19:59] VITALS: BP 166/63
--- NOTE | 2019-10-21 22:15 | NUR ---
P-CONFUSION, AGITATION I-REDIRECTION WITH 1:1 THERAPEUTIC INTERVENTIONS AND COMMUNICATION. PRESENT REALITY. EDUCATE AND ENCOURAGE MEDICATION COMPLIANCE R-MEDICATION COMPLIANT AT HS. PATIENT REFUSED NOURISHMENT BUT PROVIDED FLUIDS AT HS. PATIENT WITH INCREASED AGITATION AND AGGRESSION. PATIENT WITH ATTEMPTS TO STRIKE OUT AT NURSING STAFF. REDIRECTION AN NONPHARMACOLGICAL INTERVENTIONS INEFFECTIVE. PATIENT PROVIDED 1:1 THERAPEUTIC COMMUNICATION AND DISTRACTION PROVIDED WITH INEFFECTIVE RESULTS. PATIENT MEDICATED WITH ATIVAN 1MG PO WITH EFFECTIVE RESULTS AT THIS TIME. PATIENT WITH NO HALLUCINATIONS OR DELUSIONS. PATIENT WITH NO HOMICIDAL IDEATIONS AND DENIES SUICIDAL IDEATIONS AT THIS TIME. P-CONTINUE TO ENCOURAGE MEDICATION COMPLIANCE, CONTINUE TO PRESENT REALITY. ENCOURAGE GROUP THERAPY WHILE AWAKE
--- NOTE | 2019-10-22 05:19 | NUR ---
PATIENT SLEPT 6 HOURS OF UNINTERRUPTED SLEEP THROUGHOUT SHIFT. Q 15 MINUTE CHECKS MAINTAINED. 24 HR chart check completed.
--- NOTE | 2019-10-22 06:36 | NUR ---
DR DE DIOS UPDATED ABOUT PATIENT WITH LOOSE STOOLS THIS SHIFT. DR DE DIOS WITH ORDER FOR C-DIFF. IMODIUM REQUESTED BUT WILL NOT ORDER UNTIL STOOL FOR C-DIFF RETURNS
[2019-10-22 07:40] VITALS: BP 150/79
--- NOTE | 2019-10-22 08:01 | NUR ---
PT DISRUPTIVE IN DINING ROOM YELLING OUT, CURSING. PT REMOVED FROM DINING ROOM AND PLACED IN VIEW OF NURSES. PT YELLING OUT, TRYING TO CLIMB OUT OF GERICHAIR, THREATENING TO HIT STAFF STATING "I'LL FUING KNOCK YOU OUT, GIVE ME YOUR DAMN FINGER AND I'LL BREAK IT." PT SPITTING AT STAFF AND ON THE FLOOR. PT USING VULGAR LANGUAGE TOWARDS STAFF STATING "WHAT ARE YOU GOING TO DO SUCK MY SHYAM?" THEN PROCEEDS TO TELL MULTIPLE STAFF MEMBERS WHILE POINTING AT THEM, "I HOPE YOU DROP RIGHT WHERE YOU STAND RIGHT NOW." 1:1 PROVIDED FOR PT TO VOICE FEELINGS, PT CONTINUES TO CURSE AT AND THREATEN STAFF, SWING AT STAFF. PT MEDICATED WITH ATIVAN 1 MG PO PRN PER ORDERS. WILL CONTINUE TO MONITOR.
--- NOTE | 2019-10-22 08:26 | NUR ---
OT NOTE Occupational therapy order received and chart reviewed. Per discussion over the phone with Delisa from [facility], OTR to hold on an OT evaluation due to patient being combative. Will follow up, thank you. June Bello OTR/L
--- NOTE | 2019-10-22 08:27 | NUR ---
PHYSICAL THERAPY Attempted to see pt on U however per staff (Delisa) pt not appropriate at this time as being combative, will follow. Indiana Walsh PT
--- NOTE | 2019-10-22 09:00 | NUR ---
ATIVAN SLIGHTLY EFFECTIVE, PT SITTING CALMLY IN GERICHAIR.
--- NOTE | 2019-10-22 09:47 | NUR ---
PT RESTLESS, AGITATED WITH STAFF AND PEERS. ASKING TO GO HOME. STAFF PROVIDED EMOTIONAL SUPPORT AND 1:1 FOR PT TO VOICE FEELINGS, PROVIDE DIVERSIONAL ACTIVITIES. PT CURRENTLY IN CHAIR LOOKING AT A MAGAZINE AT THIS TIME. PT SON, NIXON COLON, CALLED IN FOR UPDATE. UPDATE PROVIDED.
--- NOTE | 2019-10-22 10:30 | NUR ---
Treatment Plan meeting was held this a.m. with Dr. Cano, THEATRICAL PERFORMER Sarah, RN, AT, MUSHROOM PACKER-S and Shotweld Operator. Plan for discharge Next Week. Pt. is for Placment. Pt. Son has requested [facility]. Awaiting Behaviors to Normalize to send referrals.
--- NOTE | 2019-10-22 11:10 | NUR ---
Spoke with nurse caring for patient and she states that now is not a good time to assess wounds due to the patient's behavior. Will assess at a later time.
--- NOTE | 2019-10-22 11:33 | NUR ---
AM GROUP/EXERCISE AND REMINISCING PT IS UNABLE TO ATTEND GROUP THERAPY AT THIS TIME. PT WAS IN THE HALLWAY WITH NURSES FOR OBSERVATION.
--- NOTE | 2019-10-22 12:30 | NUR ---
CONTINUED REVIEW COMPLETED AND IP STAY APPROVED FOR 2 DAYS WITH NEXT REVIEW DATE 10/23.
--- NOTE | 2019-10-22 12:53 | NUR ---
PT CURSING AT STAFF, ATTEMPTING TO HIT, THREATENING STAFF.STAFF PROVIDED EMOTIONAL SUPPORT AND 1:1 FOR PT TO VOICE FEELINGS, PROVIDE LOW STIMULATION ENVIRONMENT FOR PT TO CALM, OFFERED MAGAZINE, TO WATCH TV. ALL INTERVENTIONS INEFFECTIVE, PT RESTLESS. WILL CONTINUE TO MONITOR.
--- NOTE | 2019-10-22 14:06 | NUR ---
GROUP A PT IS UNABLE TO ATTEND GROUP THERAPY AT THIS TIME DUE TO COGNITIVE IMPAIRMENT. PT WAS IN THE HALLWAY FOR CLOSE OBSERVATION BY NURSES.
[2019-10-22 19:03] VITALS: BP 150/60
--- NOTE | 2019-10-22 19:44 | NUR ---
IN FRONT OF NURSES STATION. RESTLESS. PULLED SEAT CUSHION OUT AND REFUSES TO HAVE IT PUT BACK ON CHAIR.
--- NOTE | 2019-10-22 20:26 | NUR ---
IN FRONT OF NURSES STATION. RESTLESS. PULLED SEAT CUSHION OUT AND REFUSES TO HAVE IT PUT BACK ON CHAIR.
--- NOTE | 2019-10-22 23:14 | NUR ---
CONTINUALLY CLIMBING OUTOF BED. BROUGHT TO DININGROOM IN MOY CHAIR FOR CLOSER MONITORING.
--- NOTE | 2019-10-22 23:17 | NUR ---
CONTINUALLY CLIMBING OUTOF BED. BROUGHT TO DININGROOM IN MOY CHAIR FOR CLOSER MONITORING.
--- NOTE | 2019-10-23 04:03 | NUR ---
Upon discharge recommend patient to follow up for wound care in outpatient setting continue current wound care orders at discharging facility.
--- NOTE | 2019-10-23 04:05 | NUR ---
24 HR chart check completed. HAS BEEN SLEEPING WELL FOR LAST COUPLE HOURS
--- NOTE | 2019-10-23 04:05 | NUR ---
24 HR chart check completed. HAS BEEN SLEEPING WELL FOR LAST COUPLE HOURS
--- NOTE | 2019-10-23 06:36 | NUR ---
REFUSES TO OPEN EYES AND TAKE DRINK OF WATER PRIOR TO GIVING MEDICATIONS. MEDS HELD
--- NOTE | 2019-10-23 06:36 | NUR ---
REFUSES TO OPEN EYES AND TAKE DRINK OF WATER PRIOR TO GIVING MEDICATIONS. MEDS HELD
--- NOTE | 2019-10-23 07:31 | NUR ---
Patient resting quietly with no c/o discomfort. Respirations easy and regular. Vital signs stable. No overt distress. GIVENS,GEOVANI
[2019-10-23 07:49] VITALS: BP 142/58
--- NOTE | 2019-10-23 07:54 | NUR ---
NIXON COLLINS [id number] Please refer to the physician's history and physical for past medical history, comorbid conditions, and allergies. Diagnosis: BRIEF PSYCHOTIC DISORDER Hernandez Score: 20,LOW OR NO RISK WOUND DESCRIPTIONS: Wound Number: 1 Location of the wound: left elbow Type of wound: skin tear Thickness: Partial Size: 0.4cm x 0.6cm x 0.1cm Tunneling: none Undermining: none Sinus Tract: none Presence of Exudate: Serosanguineous Amount: Light Color: Red Odor: None Periwound Skin Appearance: ecchymotic Wound edges: approximated Pain (associated with wound): none at time of assessment How does patient state this happened? pt unable to state how this happened Wound Number: 2 Location of the wound: right elbow Type of wound: skin tear Thickness: Partial Size: 0.8cm x 0.6cm x 0.1cm Tunneling: none Undermining: none Sinus Tract: none Presence of Exudate: Serosanguineous Amount: Light Color: Red Odor: None Periwound Skin Appearance: ecchymotic Wound edges: approximated Pain (associated with wound): none at time of assessment How does patient state this happened? pt unable to state how this happened Wound Number: 3 Location of the wound: left upper forearm Type of wound: skin tear Thickness: Partial Size: 1.2cm x 0.3cm x 0.1cm Tunneling: none Undermining: none Sinus Tract: none Presence of Exudate: Serosanguineous Amount: Light Color: Red Odor: None Periwound Skin Appearance: ecchymotic Wound edges: approximated Pain (associated with wound): none at time of assessment How does patient state this happened? pt unable to state how this happened Wound Number: 4 Location of the wound: left dorsal aspect of hand near thumb area Type of wound: skin tear Thickness: Partial Size: 1.1cm x 0.5cm x 0.1cm Tunneling: none Undermining: none Sinus Tract: none Presence of Exudate: Serosanguineous Amount: Light Color: Red Odor: None Periwound Skin Appearance: ecchymotic Wound edges: approximated Pain (associated with wound): none at time of assessment How does patient state this happened? pt unable to state how this happened Wound Number: 5 Location of the wound: right hand proximal Type of wound: skin tear Thickness: Partial Size: 0.4cm x 0.6cm x 0.1cm Tunneling: none Undermining: none Sinus Tract: none Presence of Exudate: Serosanguineous Amount: Light Color: Red Odor: None Periwound Skin Appearance: ecchymotic Wound edges: approximated Pain (associated with wound): none at time of assessment How does patient state this happened? pt unable to state how this happened Wound Number: 6 Location of the wound: right hand distal Type of wound: skin tear Thickness: Partial Size: 0.4cm x 0.4cm x 0.1cm Tunneling: none Undermining: none Sinus Tract: none Presence of Exudate: Serosanguineous Amount: Light Color: Red Odor: None Periwound Skin Appearance: ecchymotic Wound edges: approximated Pain (associated with wound): none at time of assessment How does patient state this happened? pt unable to state how this happened all dressings completed per physician orders and tolerated without diffcultly. Surface the patient is resting on: Proform SKIN PREVENTION RECOMMENDATION: 1. Pressure redistribution support surface as appropriate 2. Elevate heels 3. Remove boots/TEDS every shift and reapply 4. Head of bed 30 degrees as tolerated 5. Assess nutrition and hydration 6. Manage moisture 7. Avoid the use of containment devices while in bed 8. Use absorptive products on surfaces limit layers of linens on bed 9. Turn and reposition every 1-2 hours in bed and every 1 hour in chair as tolerated 10. Weight shifts every 15 minutes while up in chair 11. Offloading with pillows or device to keep heels elevated off bed 12. Monitor skin at least every shift 13. Inspect under medical devices twice a day WOUND TREATMENT RECOMMENDATIONS: Continue skin tear guidelines to right elbow, left elbow, left upper forearm, right hand proximal, right hand distal and left dorsal aspect of hand near thumb cleanse with nss and apply sureprep around the wound hydrogel to wound bed and cover with optifoam gentle every 2 days and prn for soiling.
--- NOTE | 2019-10-23 08:31 | NUR ---
Occupational Therapy evaluation completed on three with full evaluation to follow. Recommend occupational therapy per plan of care and SNF upon discharge. Thank you for this referral. June Bello OTR/L
--- NOTE | 2019-10-23 08:35 | NUR ---
Physical Therapy evaluation completed on the U with full evaluation to follow. Recommend physical therapy per plan of care and SNF upon discharge. Thank you for this referral. Indiana Walsh PT
--- NOTE | 2019-10-23 09:00 | NUR ---
Treatment Plan meeting was held this a.m. with MALENA Smith, RN, AT, DIRECTOR HOME HEALTH-S and Lean Manager. Plan for discharge Next Week. Pt. requires placement. Son has requested [facility].
--- NOTE | 2019-10-23 11:35 | NUR ---
AM GROUP/PUZZLES PT WAS PRESENT FOR MORNING GROUP THERAPY BUT IS UNABLE TO PARTICIPATE DUE TO COGNITIVE IMPAIRMENT. PT WAS AGITATED AT THE LOCKED TRAY ON THE MOY CHAIR. PT WAS REDIRECTABLE FOR ONLY A FEW MINUTES. PT IS VERY CONFUSED AND BELIEVES THAT SOMEONE STOLE HIS WALLET AND GLASSES. PT WAS GIVEN HIS GLASSES AND HE WAS CONTENT WITH THAT.
--- NOTE | 2019-10-23 15:22 | NUR ---
Observed pt sitting in jordyn-chair most of the day with tray. Pt was walked by mental health worker this afternoon. Pt walked briefly and then wanted to sit down again. Observed that pt was not aggressive or combative with MHW during this interaction.
--- NOTE | 2019-10-23 15:37 | NUR ---
GROUP B PT ATTENDED GROUP THERAPY AND PARTICIPATED BY SITTING AT A TABLE WITH PEERS AND LISTENING AND OBSERVING. PT EXHIBITED NO ADVERSE BEHAVIORS WHILE IN GROUP.
[2019-10-23 18:58] VITALS: BP 140/61
--- NOTE | 2019-10-23 20:26 | NUR ---
SITTING IN HALLWAY. NONSENSICLE CONVERSATION WITH PEERS. ATE SNACK AND WAS MEDICATION COMPLIANT. NO AGGRESSION NOTED AT THIS TIME. ASKED TO USE PHONE BUT UNABLE TO RECALL WHOM HE WANTS TO CALL. WILL MONITOR FOR BEHAVIOR/MOOD CHANGES AND Q15 MINUTES AND PRN FOR SAFETY
--- NOTE | 2019-10-23 20:38 | NUR ---
TALKED TO HIS SON FOR AWHILE, ASKING HIM TO COME AND GET HIM. HE THEN PASSED THE PHONE TO PEER TO TALK. SON HAPPY TO TALK WITH SON. ALSO SAYS CLIENT LOVES ICECREAM AND TO USE THAT TO GET HIM TO DO THING. FULL UPDATE PROVIDED TO SON
--- NOTE | 2019-10-23 22:45 | NUR ---
HAS CALMED DOWN. WAS INCONTINENT OF URINE. CLEANED UP AND CHANGED. DIFFICULTY TO REDIRECT DUE TO CONFUSION. EMOTIONAL SUPPORT PROVIDED
--- NOTE | 2019-10-24 05:49 | NUR ---
UP DRESSED AND READY FOR THE DAY. CHANGED AGAIN FOR URINE INCONTINENCE. GAIT UNSTEADY NEEDS ASSIST OF 1. DIFFICULT TO GET TO FOLLOW REQUESTS. 24 HR chart check completed.
--- NOTE | 2019-10-24 07:25 | NUR ---
PHYSICAL THERAPY Patient seen this am for therapy visit and was sitting up in activity room Abi chair upon therapist arrival. Patient identified by name / and reports no new c/o's at this time. Patient transfers sit to stand Min/CGA and presents with R side upper / lower extremity deficits, while needing multiple v/c's during gait ex to focus on task to improve overall safety awareness. Patient ambulates PRIVATE BRANCH EXCHANGE SERVICE ADVISOR/CGA, 50'x 2, demonstrating "step to" harriet and can become a little agitated if rushed. Patient returned to his Abi chair with lap tray and body alarm prior to transported back to activity room awaiting breakfast. Patient remained under U staff Supervision and will continue per POC as tolerated, total treatment time 17 minutes. Benjamin Benitez, PROTOTYPE DEICER ASSEMBLER
--- NOTE | 2019-10-24 07:25 | NUR ---
Dressings intact to right and left elbow, left upper forearm, left thumb area, right hand proximal, right hand distal at time of assessment dressing dated for 10/21/19 as dressing not needed change at this time per physician orders.
[2019-10-24 07:34] VITALS: BP 144/67
--- NOTE | 2019-10-24 07:45 | NUR ---
OT NOTE Prior to coming to the floor spoke with nurse Wright and reported that therapy was coming to the floor to treat this pt. Pt was seen this A.M. 1:1 for 15 minute OT session with HEALTH CARE MARKETING MANAGER and nursing staff present for observation only. Upon arrival pt was sitting upright in the jordyn chair in the dining martinez. Pt identified by name and and had no complaints at this time. Pt was taken out to the hallway where he completed sit to stand from chair level with CGA and use of hand rail for UE support. Challenged pt's static standing tolerance needed for increased I in self care tasks and functional transfers, pt was able to tolerate aprox 6 minutes before sitting due to fatigue. Functional mobility was then completed to the bathroom with CGA HOISTING ENGINE OPERATOR where he transferred on to standard commode with CGA and off standard commode with Francy and use of grab bar for UE support. Clothing management completed with Francy for assist with pulling up his R side of his pants. Pt then stood sink side while washing his hands with CGA for safety. Functional mobility completed back to the jordyn chair where he was left sitting upright with lap tray in place and under [facility] staff supervision. Continue with rec D/ Cplan to SNF. TAMAR Dominique/Carleen
--- NOTE | 2019-10-24 07:57 | NUR ---
Patient feeding self breakfast in dining room with peers. Respirations easy and regular. Vital signs stable. No overt distress. JUSTYN GON[facility]ALEZ [facility] on unit to see pt at this time, update given.
--- NOTE | 2019-10-24 08:31 | NUR ---
REVIEW CALL WILL BE AT 3:00PM TODAY FOR ADDITIONAL DAYS. TUBE DISPATCHER NOTIFIED.
--- NOTE | 2019-10-24 09:00 | NUR ---
Treatment Plan meeting was held this a.m. with MALENA Smith, RN, AT, CASH REGISTER REPAIRER-S and Cleaning Laborer. Plan for discharge Next week. Pt. requires Placement. Referral faxed to [facility] at Request of Son.
--- NOTE | 2019-10-24 11:38 | NUR ---
Pt holding right side of chest c/o pain, pt unable to rate on pain scale, pt states it feels like "a big lump". Pt states pain extends under arm to axilla. Vitals assessed and are as follows: 98.9-68-18-129/48-97% room air. No SOB or acute distress noted. notified of the above and that pt does have documented cardiac hx including previous OR. States he will order EKG/troponin cycles.
--- NOTE | 2019-10-24 11:38 | NUR ---
AM GROUP PT DID NOT ATTEND MORNING GROUP THERAPY. PT WAS RESTING IN A QUIET ROOM
--- NOTE | 2019-10-24 11:45 | NUR ---
Lab on unit to draw troponin level.
--- NOTE | 2019-10-24 12:05 | NUR ---
Pt called from the quiet room to this senior grant writer who was walking in the martinez. Went to pt sitting in a jordyn-chair who stated that he was having pain. Pt was holding his hand to his extreme upper right chest. Notified RN of pt's complaint.
--- NOTE | 2019-10-24 12:05 | NUR ---
Notified troponins had been drawn but EKG had not been here yet. states OK to change EKG order to STAT. Also reviewed elevated troponins from admission with .
--- NOTE | 2019-10-24 12:20 | NUR ---
Recieved call from Yana in lab with critical troponon of 0.059. Pt's name and verified by this RN. Call placed to and made aware of the above.
--- NOTE | 2019-10-24 12:35 | NUR ---
Pt ate 100% of lunch with good fluid intake. Pt fed self. Pt in no distress at this time, states he feels "fine, get me out of here". Pt denies pain/discomfort. Pt states previously reported pain to right side of chest is gone. No distress noted.
--- NOTE | 2019-10-24 12:41 | NUR ---
EKG on unit at this time.
--- NOTE | 2019-10-24 12:58 | NUR ---
DR. ANNA NOTIFIED OF EKG RESULTS.
--- NOTE | 2019-10-24 13:11 | NUR ---
Clinical Updates faxed to [facility] Attn: Chasity.
--- NOTE | 2019-10-24 14:07 | NUR ---
GROUP A PT WAS PRESENT FOR GROUP THERAPY BUT IS UNABLE TO PARTICIPATE DUE TO COGNITIVE IMPAIRMENT. PT KEPT ASKING FOR "ELVIRA" AND THINKING THAT A FEMALE PEER WAS HER. PT DRIFTED OFF TO SLEEP AND DID NOT WAKE FOR THE REMAINDER OF GROUP.
--- NOTE | 2019-10-24 14:30 | NUR ---
P- Confusion, slightly irritable/agitated this AM regarding wanting to leave. I- Orientation, mood and behaviors assessed. Assessed pt for SI/HI, hallucinations, paranoia and/or delusions. Medications administered as per physician's orders. Assistance with ADL care provided as needed. Encouraged pt to attend and participate in amador milieu groups and activities. R- Pt is alert and oriented to name only, otherwise confused. ST/LT memory gaps noted. Resps easy and even on room air. Pt had one episode this AM with noted irritability regarding wanting to leave, pt became slightly agitated due to wanting to leave. Pt was taken to quiet area and was able to be calmed with use of verbal redirection and quiet destimulation area. Otherwise mood appears depressed with flat affect. Speech is soft, coherent, able to answer questions and makes needs known without difficulty. Pt denies SI/HI, intent or plan. Pt denies hallucinations, no response to internal stimuli noted. No paranoia or delusions noted. Pt is medication compliant without difficulty. No physically aggressive or threatening behaviors displayed. No further c/o chest pain. No distress noted. P- Plan to continue current treatment, continue to monitor mood and behaviors, provide appropriate reorientation, redirection and 1:1 as needed. Continue to encourage medication compliance as well as group attendance and participation.
--- NOTE | 2019-10-24 14:37 | NUR ---
Pt noted picking bandages off of skin tears to BUE. Reapplied. Pt encouraged to leave these in place, pt states "oh, ok".
--- NOTE | 2019-10-24 15:05 | NUR ---
Spoke to Imelda at [facility] for additional days. Patient is going to peer review and she will return CM call when a decision has been made.
--- NOTE | 2019-10-24 15:46 | NUR ---
Pt compliant with HOC this afternoon, asked to have face shaved. MHW assisted pt with shaving face. Pt calm and cooperative.
--- NOTE | 2019-10-24 16:45 | NUR ---
Shift chart check completed.
[2019-10-24 19:38] VITALS: BP 142/66
--- NOTE | 2019-10-24 21:58 | NUR ---
CALMED DOWN SINCE BEGINING OF SHIFT. IRRITABLITY AND ANXIETY LASTED FOR A COUPLE HOURS. WAS MEDICATION COMPLIANT UNABLE TO COMPREHEND INSTRUCTIONS AND REQUESTS. MOVES SELF IN CHAIR. WILL MONITOR FOR CHANGES IN BEHAVIOR/MOOD AND Q 15 MIN AND PRN FOR SAFETY
--- NOTE | 2019-10-25 02:31 | NUR ---
24 HR chart check completed.
--- NOTE | 2019-10-25 05:39 | NUR ---
HAS SLEPT WELL PAST 0000AM. MOVES SELF AROUND IN CHAIR. LEGS REMAIN ELEVATED. RFA DRESSING REINFORCED WITH PAPER TAPE EARLIER HE WAS PICKING OPTIFOAM OFF. CURRENTLY IN PLACE
--- NOTE | 2019-10-25 06:26 | NUR ---
DUE TO INCREASED AGGITATION IF AWAKENED, WILL WAIT TO GIVE AM MEDS WHEN HE AWAKES
--- NOTE | 2019-10-25 07:26 | NUR ---
OT NOTE Prior to coming to the floor spoke with nurse Wright and reported that therapy was coming to the floor to treat this pt. Pt was seen this A.M. 1:1 for 20 minute OT session with SENIOR ENERGY ANALYST and nursing staff present for observation only. Upon arrival pt was sitting upright in the jordyn chair in the dining martinez. Pt identified by name and and had no complaints at this time. Pt was taken out to the hallway where he completed multiple sit to stand transfers from chair level with CGA and use of hand rail for UE support. CHallenged pt's static standing tolerance needed for increased I in self care tasks and functional transfers. Pt was able to tolerate aprox 4 minutes at a time before sitting due to fatigue. Functional mobility was then completed to his bedroom with CGA EXECUTIVE ADMINISTRATIVE ASST. Once seated pt completed AAROM to his RUE over all planes of motion to his shoulder, elbow, wrist, and digit joints for 1 X 10 to increase and restore maximum functional use. Pt was left sitting upright in the jordyn chair in the dining martinez with lap tray in place, body alarm activated, and under [facility] staff supervision. Continue with rec D/C plan to SNF. TAMAR Dominique/Carleen
--- NOTE | 2019-10-25 07:35 | NUR ---
Patient eating breakfast in dining room with peers. Respirations easy and regular. Vital signs stable. No overt distress. JUSTYN GONZALEZ
[2019-10-25 07:38] VITALS: BP 140/64
--- NOTE | 2019-10-25 08:30 | NUR ---
updated on pt progress and rounded via telehealth. No new orders recieved.
--- NOTE | 2019-10-25 09:29 | NUR ---
PHYSICAL THERAPY Patient seen this am for therapy visit and was sitting up in activity room Abi chair upon therapist arrival. Patient identified by name / and was quite pleasant this morning. Patient voices no c/o's of pain, other than B LE joint soreness and stated he had slept pretty soundly last night. Patient transfers sit to stand, Min A, tolerating several minutes static stand at handrail as a warmup for gait ex. Patient ambulates CGA with single handrail support, 100'x 1, while demonstrating bouts of unsteady "step to" gait pattern. Patient needed v/c to increase R step length and returned to his Abi chair with mild fatigue. Patient remained in activity room under [facility] staff Supervision awaiting breakfast and will continue per POC as tolerated. Total treatment time 16 minutes. Benjamin Benitez, LOG POND WORKER
--- NOTE | 2019-10-25 10:48 | NUR ---
IP APPROVED 10/23-10/24 WITH NEXT REVIEW DATE 10/25.
--- NOTE | 2019-10-25 11:30 | NUR ---
and on unit to see pt at this time, update given.
--- NOTE | 2019-10-25 11:43 | NUR ---
Treatment Plan meeting was held this a.m. via telephone with Dr. Cano, RN, AT, FAREBOX REPAIRER-S and White Mixing Operator. Plan for discharge Early Next Week. Pt. has been referred to [facility]. Clinical Updates were faxed to Facility yesterday.
--- NOTE | 2019-10-25 11:56 | NUR ---
AM GROUP PT DID NOT ATTEND MORNING GROUP THERAPY.PT WAS IN THE HALLWAY FOR OBSERVATION.
--- NOTE | 2019-10-25 12:37 | NUR ---
P- Pleasantly confused. Restless this AM. Exit seeking, easily redirected. Noncompliant with fall risk precautions. I- Orientation, mood and behaviors assessed. Assessed pt for SI/HI, hallucinations, paranoia and/or delusions. Medications administered as per physician's orders. Assistance with ADL care provided as needed. Encouraged pt to attend and participate in amador milieu groups and activities. Fall risk and elopement precautions in place. Frequent education and reminders provided to pt. R- Pt is alert and oriented to self only, otherwise confused with both ST and LT memory gaps noted. Resps easy and even on room air. Mood stable, affect flat. Pt is pleasant as of this time in the shift. Speech is soft, coherent, able to answer questions and make needs known. Pt denies SI/HI, intent or plan. Pt denies hallucinations, no response to internal stimuli noted. No paranoia or delusions noted. Pt noted to be restless at times with some exit seeking noted. Pt able to be easily redirected away from the doors with verbal redirection. Pt is medication compliant without difficulty. No aggressive or threatening behaviors displayed as of this time in the shift. Pt is noncompliant with fall risk precautions, pt noted with abnormal gait per baseline. Pt utilizes hand rail while ambulating in hallway. Education provided to pt regarding importance of adhering to fall risk precautions without positive effect. Pt states "Oh, I won't fall". Frequent reminders provided. P- Plan to continue current treatment, continue to monitor mood and behaviors, provide appropriate reorientation, redirection and 1:1 as needed. Continue to reinforce importance of adhering to fall prevention strategies, continue falling star program. Continue to encourage medication compliance, group attendance and participation and elopement precautions.
--- NOTE | 2019-10-25 14:02 | NUR ---
GROUP A PT ATTENDED GROUP THERAPY AND SAT AT A TABLE WITH PEERS OBSERVING. PT WAS CALM AND QUIET AND EXHIBITED NO ADVERSE BEHAVIORS WHILE IN GROUP
--- NOTE | 2019-10-25 16:00 | NUR ---
Pt took brief afternoon nap in bed. Pt got OOB unassisted, bed alarm sounding despite frequent reminders of fall prevention strategies. Pt incontinent of bowel at this time. Pt assisted to bathroom. Pt slightly irritable with staff attempting to help pt complete hygiene care. Pt states "Get out of here! What do you want to watch me shit for?!" Advised pt RN was just here to help and make sure he was safe and clean. Pt reluctantly allowed RN to assist him in finishing hygiene care. No physical aggression. Pt now ambulating hallway, down to exit doors, staff is able to verbally redirect pt away from door. Elopement precautions maintained.
--- NOTE | 2019-10-25 16:31 | NUR ---
notified pt's home med Sulfasalazine fell of eMAR. States he will reorder.
[2019-10-25 19:02] VITALS: BP 129/52
--- NOTE | 2019-10-25 20:59 | NUR ---
24 HR chart check completed.
--- NOTE | 2019-10-26 02:14 | NUR ---
PATIENT HAS BEEN ALERT AND VERBAL. COOPERATIVE WITH CARE. NO BEHAVIORS NOTED. NO SI/HI. HAS BEEN MED COMPLIANT. RESTING IN BED AT PRESENT.
--- NOTE | 2019-10-26 06:04 | NUR ---
PATIENT SLEPT MORE THAN 7 HOURS
--- NOTE | 2019-10-26 07:10 | NUR ---
PHYSICAL THERAPY Patient seen this am for therapy visit and was standing in doorway to his room with Nurse present upon therapist arrival. Patient identified by name / and reports no new c/o's at this time. Patient ambulates SBA, no AD, demonstrating very slow harriet and bouts of R foot drag, 60'x 2. Patient needed brief seated rest between gait trials secondary to increased fatigue and returned to activity room chair at table awaiting breakfast. Patient remained at table under [facility] staff Supervision and will continue per POC as tolerated, total treatment time 16 minutes. Benjamin Benitez, COMMERCIAL BAKER HELPER
--- NOTE | 2019-10-26 07:20 | NUR ---
Dressing change to left and right elbow, left upper forearm, left thumb, right hand proximal, right hand distal per physician order. Patient tolerate dressing changes without diffcuilty. Call light within reach and bed in low position.
--- NOTE | 2019-10-26 07:25 | NUR ---
OT NOTE Prior to coming to the floor spoke with Racheal and reported that therapy was coming to the floor to treat this pt. Pt was seen this A.M. 1:1 for 15 minute OT session with TANK WAGON DRIVER and nursing staff present for observation only. Upon arrival pt was sitting upright in the quiet room. Pt identified by name and and had complaints of genralized fatigue. Completed AAROM to pt's RUE over all planes of motion for 1 X 10 to increase and restore maximum functional use. Throughout ROM pt required multiple verbal and tactile prompts for staying awake and following commands. Sit to stand completed from chair level with CGA IT SECURITY CONSULTANT followed by functional mobility to the dining martinez. [facility] staff supervision. Continue with rec D/C plan to SNF. TAMAR Dominique/Carleen
[2019-10-26 07:51] VITALS: BP 124/67
--- NOTE | 2019-10-26 07:51 | NUR ---
Patient eating breakfast in dining room with peers. Respirations easy and regular. Vital signs stable. No overt distress. JUSTYN GONZALEZ
--- NOTE | 2019-10-26 08:48 | NUR ---
Subhash PMP-BC on unit to see pt at this time, update given.
--- NOTE | 2019-10-26 10:46 | NUR ---
Treatment team meeting held this AM with Sarah STOCKTON RN, early childhood services coordinator, and BELKYS. Discharge will be next week. Continue to work on placement for pt.
--- NOTE | 2019-10-26 11:31 | NUR ---
AM GROUP PT ATTENDED MORNING GROUP THERAPY AND PARTICIPATED BY LOOKING AT THE NEWSPAPER. PT WAS QUIET AND CALM. PT EXHIBITED NO ADVERSE BEHAVIORS WHILE IN GROUP.
--- NOTE | 2019-10-26 12:25 | NUR ---
Clinical update faxed to Chasity at [facility].
--- NOTE | 2019-10-26 12:36 | NUR ---
MARYANN ZAMBRANO CNP ON UNIT TO ASSESS PATIENT.
--- NOTE | 2019-10-26 13:15 | NUR ---
No adverse moods or behaviors this shift. Pt is alert and oriented to person only, otherwise confused with ST/LT memory gaps noted. Resps easy and even on room air. Pt napping intermittently t/o shift. Easily arousable via verbal/tactile stimuli. Mood stable this shift, affect appropriate. Speech soft, coherent, able to answer questions and makes needs known without difficulty. Pt denies SI/HI, intent or plan. Pt denies hallucinations, no response to internal stimuli noted. No paranoia or delusions noted. Pt is medication compliant without difficulty. No aggressive behaviors or elopement attempts made as of this time in the shift. Plan to continue current treatment, continue to monitor mood and behaviors, provide appropriate reorientation, redirection and 1:1 as needed. Continue to encourage medication compliance as well as group attendance and participation.
--- NOTE | 2019-10-26 13:43 | NUR ---
Spoke to Chasity at [facility] and was informed that there currently are no beds available.
--- NOTE | 2019-10-26 14:11 | NUR ---
GROUP A PT WAS PRESENT FOR GROUP THERAPY BUT IS UNABLE TO PARTICIPATE DUE TO COGNITIVE IMPAIRMENT. PT EXHIBITED NO ADVERSE BEHAVIORS WHILE IN GROUP.
--- NOTE | 2019-10-26 14:26 | NUR ---
Spoke with Pat at [facility] and faxed referral to Elke's attention. Requested a return call from Elke to discuss appropriateness of pt for LOC provided at [facility]. Await return call.
--- NOTE | 2019-10-26 14:31 | NUR ---
OCCUPATIONAL THERAPY CO-SIGN I approve of the Occupational Therapy notes written above. MICKEY LOPEZ, OTR/L
--- NOTE | 2019-10-26 15:22 | NUR ---
PHYSICAL THERAPY CO-SIGN I approve of the Physical Therapy notes written above. Indiana Walsh PT
--- NOTE | 2019-10-26 18:32 | NUR ---
After dinner pt noted down at unit exit door. This RN was able to verbally redirect pt away from the door easily.
[2019-10-26 19:47] VITALS: BP 118/67
--- NOTE | 2019-10-27 02:37 | NUR ---
P-CONFUSION I-REDIRECTION WITH 1:1 THERAPEUTIC INTERVENTIONS AND COMMUNICATION. PRESENT REALITY. EDUCATE AND ENCOURAGE MEDICATION COMPLIANCE R-MEDICATION COMPLIANT AT HS. PATIENT PROVIDED NOURISHMENT AND FLUIDS AT HS. PATIENT AGITATED AT TIMES WITH HANDS ON CARE.PATIENT WITH NO HALLUCINATIONS OR DELUSIONS. PATIENT WITH NO HOMICIDAL IDEATIONS AND DENIES SUICIDAL IDEATIONS AT THIS TIME. P-CONTINUE TO ENCOURAGE MEDICATION COMPLIANCE, CONTINUE TO PRESENT REALITY. ENCOURAGE GROUP THERAPY WHILE AWAKE
--- NOTE | 2019-10-27 05:42 | NUR ---
PATIENT SLEPT APPROX 4 HOURS THROUGHOUT THE NIGHT INTERRUPTED. NO DISTRESS NOTED.
[2019-10-27 08:00] VITALS: BP 140/57
--- NOTE | 2019-10-27 12:00 | NUR ---
Shift chart check completed.
--- NOTE | 2019-10-27 13:10 | NUR ---
No adverse moods or behaviors noted this shift. Patient remains at baseline confusion, reorientation effective at times. Denies SI/HI, hallucinations, delusions or pain. No s/s of interacting with internal stimuli; No paranoid or delusional thought process noted; No s/s of distress noted; Resps even and unlabored on room air. Medication compliant. Voices needs and makes known. Eating and drinking adequately. Assistance provided with transfering, turning, and care. Skin integrity measures maintained. Falling star program maintained with alarms intact. Q15 minute checks maintained for safety.
[2019-10-27 20:00] VITALS: BP 153/60
--- NOTE | 2019-10-28 00:47 | NUR ---
P-CONFUSION I-REDIRECTION WITH 1:1 THERAPEUTIC INTERVENTIONS AND COMMUNICATION. PRESENT REALITY. EDUCATE AND ENCOURAGE MEDICATION COMPLIANCE R-MEDICATION COMPLIANT AT HS. PATIENT REFUSED NOURISHMENT BUT PROVIDED FLUIDS AT HS. PATIENT AGITATED AT TIMES WITH HANDS ON CARE. PATIENT WITH NO HALLUCINATIONS OR DELUSIONS. PATIENT WITH NO HOMICIDAL IDEATIONS AND DENIES SUICIDAL IDEATIONS AT THIS TIME. PATIENT AMBULATING ON UNIT AND INTERACTING WITH PEERS AT HS. P-CONTINUE TO ENCOURAGE MEDICATION COMPLIANCE, CONTINUE TO PRESENT REALITY. ENCOURAGE GROUP THERAPY WHILE AWAKE
--- NOTE | 2019-10-28 06:33 | NUR ---
PATIENT SLEPT APPROX 6 HOURS THROUGHOUT THE NIGHT UNINTERRUPTED. NO DISTRESS NOTED.
[2019-10-28 08:00] VITALS: BP 151/63
--- NOTE | 2019-10-28 08:00 | NUR ---
Patient feeding self breakfast in dining room. Respirations easy and regular. Vital signs stable. No overt distress. JUSTYN GONZALEZ
--- NOTE | 2019-10-28 10:00 | NUR ---
Antony POLISH COMPOUNDER on unit to see pt at this time.
--- NOTE | 2019-10-28 18:35 | NUR ---
P- Confusion, exit seeking, able to be verbally redirected away from doors without difficulty. I- Orientation, mood and behaviors assessed. Assessed pt for SI/HI, hallucinations, paranoia and/or delusions. Medications administered as per physician's orders. Assistance with ADL care provided as needed. Encouraged pt to attend and participate in amador milieu groups and activities. R- Pt is alert and oriented to self only, otherwise confused with memory gaps noted. Resps easy and even on room air. Mood stable with appropriate affect. Speech is soft, coherent, able to answer questions and makes needs known without difficulty. Pt denies SI/HI, intent or plan. Pt denies hallucinations, no response to internal stimuli noted. No paranoia or delusions noted. Pt is medication compliant without difficulty. Pt continues with exit seeking behaviors, pt down to exit doors, able to easily redirect pt away from doors with verbal redirection. No aggressive or threatening behaviors displayed. Pt is calm and cooperative with staff, interacts appropriately with peers. Had pleasant conversation with son on the phone. No distress noted. P- Plan to continue current treatment, continue to monitor mood and behaviors, provide appropriate reorientation, redirection and 1:1 as needed. Continue to encourage medication compliance as well as group attendance and participation.
[2019-10-28 19:53] VITALS: BP 144/79
--- NOTE | 2019-10-29 01:27 | NUR ---
P-CONFUSION I-REDIRECTION WITH 1:1 THERAPEUTIC INTERVENTIONS AND COMMUNICATION. PRESENT REALITY. EDUCATE AND ENCOURAGE MEDICATION COMPLIANCE R-MEDICATION COMPLIANT AT HS. PATIENT REFUSED NOURISHMENT BUT PROVIDED FLUIDS AT HS. PATIENT WITH NO HALLUCINATIONS OR DELUSIONS. PATIENT WITH NO HOMICIDAL IDEATIONS AND DENIES SUICIDAL IDEATIONS AT THIS TIME. PATIENT AMBULATING ON UNIT AND INTERACTING WITH PEERS AT HS. P-CONTINUE TO ENCOURAGE MEDICATION COMPLIANCE, CONTINUE TO PRESENT REALITY, ENCOURAGE GROUP THERAPY WHILE AWAKE
--- NOTE | 2019-10-29 05:43 | NUR ---
PT SLEPT 7 HOURS, AWOKE 3 TIMES TO USE THE BATHROOM
--- NOTE | 2019-10-29 07:25 | NUR ---
PHYSICAL THERAPY Patient seen this am for therapy visit and was sitting up on EOB following OT visual merchandising assistant treatment. Patient identified by name / and reports no new c/o's at this time. Patient transfers sit to stand from low bed surface, SBA and ambulates ad domo in hallway, A, 50'x 2, demonstrating slow harriet with bouts of R LE weakness as patient seemed to "drag" his foot at times. Patient also fatigues quickly needing brief seated rest break between gait trials and returned to EOB sit. Patient stated he was not ready to go down for breakfast and remained EOB sit under [facility] staff Supervision. Will continue per POC as tolerated, total treatment time 16 minutes. Benjamin Benitez, HISTORICAL INTERPRETER
--- NOTE | 2019-10-29 07:30 | NUR ---
OT NOTE Prior to coming to the floor spoke with nurse Henriquez and reported that therapy was coming to the floor. Pt was seen this A.M. 1:1 for 20 minute OT session with RIPSAWYER and nursing staff present for observation only. Upon arrival pt was supine in bed. Pt identified by name and and had no complaints at this time. Pt transferred supine to sit EOB with SBA. While sitting EOB PROM completed to RUE to point of tolerance over all planes of motion for 1 X 10 to increase and restore maximum functional use. Sit to stand completed from bed level with CGA DIRECTOR AGENCY & STRATEGIC PARTNERSHIPS. Challenged pt's dynamic standing tolerance needed for increased I in self care tasks and functional transfers, pt was able to tolerate aprox 4 minutes before requesting to sit due to fatigue. Pt was left sitting upright on the EOB with U staff notified. Continue with rec D/C plan to SNF. TAMAR Dominique/Carleen
--- NOTE | 2019-10-29 07:45 | NUR ---
Patient resting quietly with no c/o discomfort. Respirations easy and regular. Vital signs stable. No overt distress. JUSTYN GONZALEZ
[2019-10-29 07:58] VITALS: BP 142/68
--- NOTE | 2019-10-29 08:30 | NUR ---
Treatment Plan meeting was held this a.m. with Dr. Cano, MALENA Smith, RN, AT, PARACHUTE CROWN SEWER-S and Environmental Advisor. Plan for discharge remains unclear. [facility] Has no male beds at this time. Referral faxed to the [facility] [place] Tuesday. Will follow with that facility today.
--- NOTE | 2019-10-29 10:55 | NUR ---
Left Message for Helpdesk Manager at the [facility] [place] to Follow referral that was faxed on Tuesday. She is currently in a meeting and will call back.
--- NOTE | 2019-10-29 11:55 | NUR ---
Spoke with pt's son Yaya to discuss discharge. Yaya would like referrals to [facility] and [facility]. Informed Yaya that this lyric writer learned earlier this AM that [facility] has no beds. Yaya then stated that he would call [facility] directly because he knows them well. Discussed pt's needs further and recommendation that pt be placed in a facility. Yaya stated that he has considered pt returning home but now recognizes that pt is not appropriate to do so. Received a second call from Yaya stating that he spoke with Ana at [facility] and confirmed that currently there are no beds.
--- NOTE | 2019-10-29 14:45 | NUR ---
Referral faxed to [facility] per Son request. Referral declined due to Elopement Risk. Referral faxed to [facility] at Son Request.
--- NOTE | 2019-10-29 15:42 | NUR ---
GROUP A AND B COMBINED PT WAS PRESENT FOR BOTH GROUP THERAPY SESSIONS. PT SAT AT A TABLE WITH PEERS AND WAS CONTENT TO OBSERVE OR LOOK OUT THE WINDOW. PT EXHIBITED NO ADVERSE BEHAVIORS WHILE IN GROUP. PT WAS CALM AND QUIET.
--- NOTE | 2019-10-29 17:40 | NUR ---
DAYLIGHT SKIN ASSESSMENT 10/29/19 Completed by this RN and 2nd RN ERIKAG: Optifoam dressings clean, dry and intact dated for 10/28/2019 noted to right elbow, right hand, left elbow, left forearm and bandaid to left thumb. These dressings due to be changed tomorrow as per physician's orders. Small intact scab to right forearm. Intact raised red area to mid back. Yellow/red/purple colored bruise to left deltoid. Intact scab noted to right knee. Skin to bilateral feet and heels intact. Toe nails elongated.
--- NOTE | 2019-10-29 18:32 | NUR ---
P- Confused, one episode of wandering, easily redirected I- Orientation, mood and behaviors assessed. Assessed for SI/HI, hallucinations, paranoia and/or delusions. Medications administered as per orders. Assistance with ADL care provided as needed. Encouraged pt to attend and participate per physician's orders. R- Pt is alert to self only, otherwise confused with memory gaps noted. Resps easy and even on room air. Mood appears stable with appropriate affect. Pt is calm, pleasant and cooperative. Pt denies SI/HI, intent or plan. Pt denies hallucinations, no response to internal stimuli noted. No paranoia or delusions noted. Pt is medication compliant without difficulty. Pt down to exit doors once this shift, wandering, easily redirected away from door with verbal redirection. No aggressive behaviors displayed. No distress noted. P- Plan to continue current treatment, Contniue to monitor mood and behaviors. Provide appropriate reorientation, redirection and 1:1 as needed. Continue to encourage medication compliance as well as group attendance and participation.
[2019-10-29 20:00] VITALS: BP 144/71
--- NOTE | 2019-10-29 23:47 | NUR ---
P-CONFUSION I-REDIRECTION WITH 1:1 THERAPEUTIC INTERVENTIONS AND COMMUNICATION. PRESENT REALITY. EDUCATE AND ENCOURAGE MEDICATION COMPLIANCE R-MEDICATION COMPLIANT AT HS. PATIENT PROVIDED NOURISHMENT AND FLUIDS AT HS. PATIENT WITH NO HALLUCINATIONS OR DELUSIONS. PATIENT WITH NO HOMICIDAL IDEATIONS AND DENIES SUICIDAL IDEATIONS AT THIS TIME. PATIENT AMBULATING ON UNIT AND INTERACTING WITH PEERS AT HS. P-CONTINUE TO ENCOURAGE MEDICATION COMPLIANCE, CONTINUE TO PRESENT REALITY, ENCOURAGE GROUP THERAPY WHILE AWAKE
--- NOTE | 2019-10-30 05:23 | NUR ---
PATIENT SLEPT 6 HOURS OF INTERRUPTED SLEEP THROUGHTOUT SHIFT. Q 15 MINUTE CHECKS MAINTAINED. 24 HR chart check completed.
--- NOTE | 2019-10-30 06:49 | NUR ---
Spoke with nurse Eddi DYSON and Florence DYSON who are caring for patient and they stated that now is not a good time to evaluate patient's for skin impairment due to him not cooperating with care.
--- NOTE | 2019-10-30 07:30 | NUR ---
PHYSICAL THERAPY Patient was resting supine in bed this am when approached for therapy visit and did not want to get up for breakfast at this time. Patient stated he wanted to stay in bed to rest. Will continue per POC as able. Benjamin Benitez, SURGICAL INSTRUMENT TECHNICIAN
--- NOTE | 2019-10-30 07:33 | NUR ---
OT NOTE Attempted to see pt this A.M. for OT session and upon arrival pt was supine in bed asleep. Pt was able to arouse to verbal and tactile stimuli however declined getting up at this time and was not wanting to go to breakfast. Will check back at a later time/date and continue with POC as able. TAMAR Dominique/Carleen
[2019-10-30 07:51] VITALS: BP 134/72
--- NOTE | 2019-10-30 07:59 | NUR ---
Laying in bed with eyes closed. No voiced complaints at this time. No s/s of distress noted. Resps even and unlabored on room air. Q15 minute checks maintained for safety.
--- NOTE | 2019-10-30 08:30 | NUR ---
Treatment Plan meeting was held this a.m. with Dr. Cano on the phone, NEUROSURGICAL NURSE Sarah, RN, AT, MANAGEMENT AND BUDGET ANALYST-S and Cinema Or Theatre Manager in attendance. Plan for discharge is unclear. Refferals pending to the [facility] [place] and [facility].
--- NOTE | 2019-10-30 09:00 | NUR ---
MARYANN ZAMBRANO CNP ON UNIT TO ASSESS PT
--- NOTE | 2019-10-30 09:45 | NUR ---
[facility] Declined Referral due to Elopement risk and behaviors. Received Message from Audra at [facility] that they are not accepting referrals at this time and Pt. is not appropriate for their facility due to Violent Behaviors.
--- NOTE | 2019-10-30 10:30 | NUR ---
Wound Orders completed to bilateral elbows, left upper forearm and left thumb, and top of right hand per physician orders. Patient tolerated well, denies pain to sites.
--- NOTE | 2019-10-30 10:52 | NUR ---
DAYLIGHT SKIN ASSESSMENT 10/30/19 Completed by this RN and 2nd RN KANIKA.[email or web address]: Optifoam dressings clean, dry and intact dated for 10/30/2019 noted to right elbow, right hand, left elbow, left forearm and bandaid to left thumb. These dressings due to be changed every two days and prn as per physician's orders. Small intact scab to right forearm. Intact raised red area to mid back. Yellow/red/purple colored bruise to left deltoid. Intact scab noted to right knee. Skin to bilateral feet and heels intact. Toe nails elongated.
--- NOTE | 2019-10-30 11:29 | NUR ---
Left message for Elke at the [facility] [place] [phone] to discuss referral faxed 10/28.
--- NOTE | 2019-10-30 11:43 | NUR ---
AM GROUP PT ATTENDED MORNING GROUP THERAPY AND PARTICIPATED BY READING THE NEWSPAPER AND LOOKING OUT THE WINDOW. PT EXHIBITED NO ADVERSE BEHAVIORS WHILE IN GROUP.
--- NOTE | 2019-10-30 11:45 | NUR ---
Spoke with Chi at [facility]. Faxed Referral for Review for Private Pay.
--- NOTE | 2019-10-30 12:11 | NUR ---
Son had given names for facilities to Development Spec. The [facility] [address] No beds in Memory Care, [facility]. Pt. is not appropriate for traditional Assisted Living per Soraida at [facility] and there are currently no beds available in the [facility] Memory care Unit which has a Several Month Waiting List. Referral faxed to [facility] Attn: Leslie [phone]. Referral Faxed to [facility] [phone] Attn: Damaris. Referral to [facility] Attn: Jennifer [phone].
--- NOTE | 2019-10-30 12:16 | NUR ---
Referral Faxed to [facility]. Spoke with Josiane At Facility. Pt. is out of Network with [employer].
--- NOTE | 2019-10-30 12:25 | NUR ---
MARYANN ZAMBRANO NOTIFIED OF PERIARE BEING RED AND BLANCHABLE WITH NO OPEN AREAS NOTED. AWAITING NEW ORDERS.
--- NOTE | 2019-10-30 13:53 | NUR ---
Referral to [facility] Attn: Josiane .
--- NOTE | 2019-10-30 14:04 | NUR ---
GROUP A PT ATTENDED GROUP THERAPY BUT IS UNABLE TO PARTICIPATE DUE TO COGNITIVE IMPAIRMENT. PT SAT NEXT TO THE WINDOW AND LOOKED OUTSIDE BEFORE FALLING TO SLEEP. PT EXHIBITED NO ADVERSE BEHAVIORS WHILE IN GROUP. PT WOKE AND ASKED TO LAY DOWN. PT ACCEPTED ASSISTANCE IN WALKING.
--- NOTE | 2019-10-30 14:36 | NUR ---
Received call from Jia Booker at [facility]. Refferal declined due to Agressive Behaviors. Also received call from Damaris at [facility] that referral is declined due to Agressive Behaviors.
--- NOTE | 2019-10-30 14:56 | NUR ---
Multiple phone conversations with pt's son Yaya today to discuss discharge options. Discussed pt's LOC requirements and Dr Cano's recommendation that pt not return home but be placed in a facility. Numerous referrals were made to both NFs and ALs by Dana Solis, senior buyer planner.
--- NOTE | 2019-10-30 15:39 | NUR ---
Shift chart check completed.
--- NOTE | 2019-10-30 16:50 | NUR ---
No adverse moods or behaviors noted this shift. Patient is pleasant upon interaction. Remains at baseline confusion of being alert to person only with ST/LT memory deficits. Reorientaiton and redirection is effective. Denies SI/HI, hallucinations, delusions, or pain. No s/s of interacting with internal stimuli; No s/s of paranoid or delusional thought process; No s/s of distress noted, resps even and unlabored on room air. Medication compliant. Eating and drinking adequately. Standby assist while ambulating due to unsteady gait at times. Falling star program maintained. Q15 minute checks maintained for safety.
[2019-10-30 20:00] VITALS: BP 142/62; BP 150/70
--- NOTE | 2019-10-30 21:15 | NUR ---
PATIENT WITH NO ADVERSE BEHAVIORS SO FAR THIS SHIFT, PATIENT ALERT TO PERSON, CONFUSED PER BASELINE. PT CALM, PLEASANT, INTERACTIVE. PT SAT IN DINING ROOM TO WATCH A MOVIE WITH PEERS AND HAVE HS SNACK. PT MEDICATION COMPLIANT WITHOUT DIFFICULTY, UNABLE TO EDUCATE DUE TO COGNITION. PT VOICES NO SI/HI, HALLUCINATIONS, OR PAIN. NO NOTED RESPONDING TO INTERNAL STIMULI. PT STAND BY ASSIST WITH ADLS, CONTINENT/INCONTINENT OF BOWEL AND BLADDER, AMBULATORY WITH STEADY GAIT. PATIENT CURRENTLY LAYING DOWN WITH EYES CLOSED, RESPIRATIONS EASY AND REGULAR, NO SIGNS OR SYMPTOMS OF DISTRESS NOTED. PLAN IS TO CONTINUE TO MONITOR MOOD AND BEHAVIORS. PRESENT REALITY AND REORIENT NEEDED. ENCOURAGE MEDICATION COMPLIANCE AND EDUCATE. MAINTAIN Q 15 MIN CHECKS AND PRN FOR SAFETY.
--- NOTE | 2019-10-31 01:11 | NUR ---
24 HOUR CHART CHECK COMPLETE
--- NOTE | 2019-10-31 05:58 | NUR ---
SLEPT 5 HOURS. AWOKE 2 TIMES TO USE BATHROOM
--- NOTE | 2019-10-31 07:10 | NUR ---
PHYSICAL THERAPY Patient seen this am for theapy visit and was sitting in chair at table following OT diploma medical assistant treatment. Patient identified by name / and was actually quite pleasant this morning, tranfering sit to stand SBA x 1. Patient ambulates SBA, ad domo in hallway, > 100'x 1, SBA, demonstrating slow, steady harriet, however, bouts of R foot drag at times. Patient able to side step each direction and take 3-4 backward steps without LOB then returned to chair at table in activity room with mild fatigue. Patient remained in chair under [facility] staff Supervision awaiting breakfast. Will continue per POC as tolerated. total treatment time 14 minutes. Benjamin Benitez, UMBRELLA REPAIRER
--- NOTE | 2019-10-31 07:36 | NUR ---
OT NOTE Prior to coming to the floor spoke with nurse Berrios and reported that therapy was coming to the floor to treat this pt. Pt was seen this A.M. 1:1 for 15 minute OT session with SUPERVISOR PIPELINE and nursing staff present for observation only. Upon arrival pt was sitting upright in the dining martinez. Pt identified by name and and had no complaints at this time. While seated pt completed AAROM to RUE and AROM to LUE over all planes of motion for 1 X 10 to increase and restore maximum functional use. Pt then doffed and donned B socks with Francy. Sit to stand completed from chair level with CGA DRILL PRESS OPERATOR FOR METAL followed by functional mobility to his bedroom and back with CGA DRILL PRESS OPERATOR FOR METAL. Challenged pt's dynamic standing tolerance for enhanced enduranced and increased I in functional transfers, pt was able to tolerate aprox 4 minutes before sitting due to fatigue. Pt was left sitting upright in the dining martinez under [facility] staff supervision. Continue with rec D/C plan to SNF. TAMAR Dominique/Carleen
[2019-10-31 07:42] VITALS: BP 114/92
--- NOTE | 2019-10-31 07:43 | NUR ---
NIXON COLLINS [id number] Please refer to the physician's history and physical for past medical history, comorbid conditions, and allergies. Diagnosis: BRIEF PSYCHOTIC DISORDER Hernandez Score: 20,LOW OR NO RISK WOUND DESCRIPTIONS: This nurse along with with Meg Joe RN evaluated patient for skin impairments. Patient refused skin assessment at this time. Dressing intact and dated 10/30/19 to right elbow, left elbow, left upper forearm, right hand proximal, right hand distal, left dorsal aspect of hand near thumb. Surface the patient is resting on: Proform SKIN PREVENTION RECOMMENDATION: 1. Pressure redistribution support surface as appropriate 2. Elevate heels 3. Remove boots/TEDS every shift and reapply 4. Head of bed 30 degrees as tolerated 5. Assess nutrition and hydration 6. Manage moisture 7. Avoid the use of containment devices while in bed 8. Use absorptive products on surfaces limit layers of linens on bed 9. Turn and reposition every 1-2 hours in bed and every 1 hour in chair as tolerated 10. Weight shifts every 15 minutes while up in chair 11. Offloading with pillows or device to keep heels elevated off bed 12. Monitor skin at least every shift 13. Inspect under medical devices twice a day
--- NOTE | 2019-10-31 08:00 | NUR ---
Patient sitting at dining room table with peers eating breakfast. No voiced complaints at this time. No s/s of distress noted; resps even and unlabored on room air. Falling star program maintained. Q15 minute checks maintained for safety.
--- NOTE | 2019-10-31 08:30 | NUR ---
Treatment Plan meeting was held this a.m. with Dr. Jerome Caputo via telephone, RN, AT, JAROD-S and Youth Nutritional Monitor in attendance. Plan for discharge today if Son is taking him Home. Continuing to work on Placement. Ana Lilia Sims as well as Endy Acosta.
[2019-10-31] MEDS ORDERED: RIVASTIGMINE1 EAC2 T (10:00)
[2019-10-31] MEDS ORDERED: MIRTAZAPINE15 M2 PO (10:00)
[2019-10-31] MEDS ORDERED: ZIPRASIDONE HCL80 M1 PO (11:10)
[2019-10-31] MEDS ORDERED: MEMANTINE HCL10 MG PO (11:10)
--- NOTE | 2019-10-31 11:35 | NUR ---
AM GROUP PT DID NOT ATTEND MORNING GROUP THERAPY.PT WAS IN BED RESTING.
--- NOTE | 2019-10-31 11:59 | NUR ---
Spoke with pt's son Yaya this AM about other possible placement options for pt. Yaya phoned [facility] [place] to discuss payment options. Yaya then spoke to this insurance writer. Discussed the cost of NFs being around $8000 per month. Yaya spoke of pt returning home but is very apprehensive of this due to pt's wandering. Discussed other vicinities that have dementia units. It was determined that referrals would be made to NFs with dementia units within the [facility] group, [facility], and [facility]. While this was being discussed with Dana Solis, operations planner, Yaya called this insurance writer again and stated that the owner/photographer of [facility] just phoned pt's and told her that a referral should be made there because they now have a new memory care unit. Yaya also approved a referral to [facility].
--- NOTE | 2019-10-31 12:00 | NUR ---
Shift chart check completed.
--- NOTE | 2019-10-31 12:05 | NUR ---
Referral Faxed to [facility] Attn: Admissions [phone].
--- NOTE | 2019-10-31 12:08 | NUR ---
Referral to the [facility] [phone].
--- NOTE | 2019-10-31 12:16 | NUR ---
Referral faxed to [facility] Attn: Florence. [phone].
--- NOTE | 2019-10-31 12:24 | NUR ---
Referral to [facility] Attn: Ana. [phone].
--- NOTE | 2019-10-31 13:24 | NUR ---
SPOKE WITH MARYANN ZAMBRANO NP RE: PT DC FOR TODAY AND MEDICAL MEDS NEEDING COMPLETED.
--- NOTE | 2019-10-31 13:30 | NUR ---
Had received call from Ana who [facility]versees [facility] [place] and [facility] and There are currently no beds. Spoke with Florence at [facility] and Pt. would be required to pay up front $6,930.00 Up Front Prior to Admit. Notified Professor Of Industrial Technology. Pt. would require second Covid Swab and would enter Semi Private Room for 14 Days per Policy due to Covid 19 Precautions.
--- NOTE | 2019-10-31 13:32 | NUR ---
Received a phone call from pt's son Yaya who stated that he received another call from Ana Healy, van owner operator of [place] [facility]. Aan told Yaya that pt will be accepted to [facility] when it opens on 12/08/19. With this new information, Yaya stated that he has decided to take pt home until 12/07 and will transport pt today at 15:00.
--- NOTE | 2019-10-31 14:07 | NUR ---
Skin assessment completed. No new open areas or skin integrity issues noted at this time. Optifoam dressings clean, dry and intact dated for 10/30/2019 noted to right elbow, right hand, left elbow, left forearm and bandaid to left thumb. Dressings are to be changed every two days and as needed per physician orders. Small intact scabs ntoed to right forearm. Intact raised red area to mid back to buttocks noted. Silver sulfadiazine cream applied per physician orders to the directed areas. Yellow/red/purple colored bruise to left deltoid. Intact scab noted to right knee. Skin to bilateral feet and heels intact. Toe nails elongated. Patient cooperative and compliant with skin integrity measures, shifting weight frequently.
--- NOTE | 2019-10-31 14:15 | NUR ---
No adverse moods or behaviors noted this shift. Patient remains at baseline confusion of alert to person only and approximate place. Reorientation effective. Denies SI/HI, hallucinations, delusions or pain. No s/s of interacting with internal stimuli. No s/s of distress noted, resps even and unlabored on room air. No paranoid or delusional thought process noted. Patient is calm, interactive, and cooperative with hands on care. Ambulates with a steady gait, stand by assist when needed provided. Eating and drinking adequaetely. Makes voiced needs known. Skin integrity interventions maintained, encouraged to utilize. Falling star program maintained, alarms intact and audible. Q15 minute checks maintained for safety.
--- NOTE | 2019-10-31 14:22 | NUR ---
Patient discharging today to his son Yaya's home. Follow-up was scheduled at [facility]. While at [facility], pt's behaviors improved. Pt was no longer verbally threatening or combative. Pt remained pleasantly confused. Pt partcipated as he was cognitively able in the programming.
--- NOTE | 2019-10-31 14:45 | NUR ---
Pt. will discharge today Home with Son. Follow Up Appointment with Dr. Cuadra in [place] Office TueNovember 06 9:45 a.m. for face to face appointment. Psych Follow Up with [facility] TuesdayNovember 05 11:00 a.m.
--- NOTE | 2019-10-31 14:46 | NUR ---
Went to get discharge photos of patients wounds and patient refused. Reapproach ineffective.
--- NOTE | 2019-10-31 14:52 | NUR ---
Patient off the floor at this time via wheelchair escorted by Mental Health Worker. Patients belongings, medications from home, and discharge packet with patient. Patient alert, baseline confusion, calm, and cooperative. No s/s of distress noted, resps even and unlabored on room air. No voiced complaints.
--- NOTE | 2019-11-01 08:12 | NUR ---
PHYSICAL THERAPY CO-SIGN I approve of the Physical Therapy notes written above. NOAH GEE PT, DPT
--- NOTE | 2019-11-01 09:47 | NUR ---
OCCUPATIONAL THERAPY CO-SIGN I approve of the Occupational Therapy notes written above. Kylee Barlow OTR/L
== END 2019-10-31 14:52 | disposition home or self-care (01) | DRG 883 ==
LOC: ED 10:42 → 3N 13:22
PROVIDERS: Emergency Medicine; ADMIT Psychiatry & Neurology Psychiatry
DX: F63.81 Intermittent explosive disorder (principal); N17.0 Acute kidney failure with tubular necrosis; F01.51 Vascular dementia, unspecified severity, with behavioral disturbance; F23 Brief psychotic disorder; K50.919 Crohn's disease, unspecified, with unspecified complications; D53.9 Nutritional anemia, unspecified; R79.89 Other specified abnormal findings of blood chemistry; N18.3 Chronic kidney disease, stage 3 (moderate); E03.9 Hypothyroidism, unspecified; E11.65 Type 2 diabetes mellitus with hyperglycemia; E11.69 Type 2 diabetes mellitus with other specified complication; I12.9 Hypertensive chronic kidney disease with stage 1 through stage 4 chronic kidney disease, or unspecified chronic kidney disease; E11.22 Type 2 diabetes mellitus with diabetic chronic kidney disease; G30.9 Alzheimer's disease, unspecified; F02.80 Dementia in other diseases classified elsewhere, unspecified severity, without behavioral disturbance, psychotic disturbance, mood disturbance, and anxiety; G89.29 Other chronic pain; Z53.29 Procedure and treatment not carried out because of patient's decision for other reasons; Z82.49 Family history of ischemic heart disease and other diseases of the circulatory system; Z83.3 Family history of diabetes mellitus; Z82.3 Family history of stroke; Z79.899 Other long term (current) drug therapy; Z86.73 Personal history of transient ischemic attack (TIA), and cerebral infarction without residual deficits; Z95.5 Presence of coronary angioplasty implant and graft; Z90.49 Acquired absence of other specified parts of digestive tract; Z20.828 Contact with and (suspected) exposure to other viral communicable diseases

== ENCOUNTER 2019-11-14 13:45 | Emergency (ER) | payer OTHER ==
[~2019-11-14] VITALS: Ht 180.3 cm; Wt 70.3 kg
[~2019-11-14 13:45] MED LIST changes: +AMLODIPINE BESY10 MG PO; +COREG12.5 M1 PO; +NAMENDA10 MG PO; +NATURE'S BLEND F1 MG PO; +RIVASTIGMINE1 EAC2 T; +SENNA PLUS 8.61 EACH PO; +XANAX0.25 MG PO; +ZIPRASIDONE HCL80 M1 PO
[2019-11-14 15:14] LABS: BASO # 0.1 10*3/uL (0.0-0.1); BASO % 0.6 % (0.0-1.0); EOS # 0.2 10*3/uL (0.0-0.4); EOS % 2.3 % (1.0-4.0); HEMATOCRIT 32.5 % (42.0-52.0); LYMPH # 1.8 10*3/uL (1.3-4.4); LYMPH % 21.1 % (27.0-41.0); MEAN CELL VOLUME 91.8 fl (80.0-94.0); MEAN CORPUSCULAR HGB 31.4 pg (27.0-31.0); MEAN CORPUSCULAR HGB CONC 34.2 g/dl (33.0-37.0); MEAN PLATELET VOLUME 9.2 fl (9.6-12.3); MONO # 0.6 10*3/uL (0.1-1.0); MONO % 7.7 % (3.0-9.0); NEUT # 5.7 10*3/uL (2.3-7.9); NEUT % 67.9 % (47.0-73.0); PLATELET COUNT AUTOMATED 211 10*3/uL (130-400); RED BLOOD COUNT 3.54 10*6/uL (4.50-5.90); RED CELL DISTRI WIDTH 12.9 % (0-14.5); WHITE BLOOD COUNT 8.4 10*3/uL (4.8-10.8)
[2019-11-14 15:15] LABS: CLARITY SL CLOUDY (CLEAR); COLOR YELLOW (YELLOW)
[2019-11-14 15:16] LABS: BILIRUBIN NEGATIVE (NEGATIVE); BLOOD 1+ (NEGATIVE); GLUCOSE 3+ (NEGATIVE); KETONE TRACE (NEGATIVE); LEUKO ESTERASE TRACE (NEGATIVE); NITRITE NEGATIVE (NEGATIVE); UROBILINOGEN 0.2 E.U./dl (0.2-1.0)
[2019-11-14 15:29] LABS: BACTERIA 2+; WBC 21-30 wbc/hpf (0-5)
[2019-11-14 15:30] LABS: ALBUMIN 3.3 gm/dl (3.1-4.5); ALKALINE PHOSPHATASE 76 U/L (45-117); BUN 14 mg/dl (7-24); CHLORIDE 102 mmol/L (98-107); CREATININE 1.31 mg/dL (0.70-1.30); POTASSIUM 3.8 mmol/L (3.5-5.1); SGOT/AST 10 IU/L (3-35); SGPT/ALT 10 U/L (12-78); SODIUM 135 mmol/L (136-145); TOTAL PROTEIN 7.3 gm/dL (6.4-8.2)
[2019-11-14] MEDS ORDERED: SEPTDS PO (16:28)
[2019-11-14] MEDS ORDERED: DIFLUCAN150 MG PO (16:28)
== END 2019-11-14 16:25 | disposition home or self-care (01) ==
LOC: ED 13:45
PROVIDERS: Emergency Medicine
DX: N39.0 Urinary tract infection, site not specified (principal); N47.1 Phimosis; I10 Essential (primary) hypertension; E11.9 Type 2 diabetes mellitus without complications; J44.9 Chronic obstructive pulmonary disease, unspecified; I25.2 Old myocardial infarction; Z79.899 Other long term (current) drug therapy; Z87.891 Personal history of nicotine dependence; Z86.73 Personal history of transient ischemic attack (TIA), and cerebral infarction without residual deficits

== ENCOUNTER → 2019-11-16 | Outpatient (CLI) | payer OTHER ==
[~2019-11-16] MED LIST changes: +DIFLUCAN150 MG PO; +SEPTDS PO
[2019-11-16 11:01] LABS: ACT PARTIAL THROMBO TIME 24.5 SECONDS (20.0-32.1); INTERNATIONAL NORM RATIO 0.9 (2.0-3.5)
== END | disposition home or self-care (01) ==
LOC: LAB 09:21 → CT 11:00
PROVIDERS: Urology
DX: Z01.818 Encounter for other preprocedural examination (principal); N20.0 Calculus of kidney; D68.8 Other specified coagulation defects; N13.30 Unspecified hydronephrosis; I25.10 Atherosclerotic heart disease of native coronary artery without angina pectoris

== ENCOUNTER 2019-12-10 12:42 | Inpatient (IN) | payer OTHER ==
[~2019-12-10] VITALS: Ht 182.8 cm; Wt 71.7 kg
[2019-12-10 12:55] VITALS: BP 144/55
--- NOTE | 2019-12-10 13:25 | NUR ---
AWAITING ALL ORDERS TO "CROSS OVER" FOR LAB DRAWS,EKG & X-RAYS.
[2019-12-10 14:14] LABS: BASO % 0.3 % (0.0-1.0); EOS # 0.1 10*3/uL (0.0-0.4); EOS % 2.2 % (1.0-4.0); HEMATOCRIT 32.7 % (42.0-52.0); LYMPH # 1.1 10*3/uL (1.3-4.4); MEAN CELL VOLUME 92.6 fl (80.0-94.0); MEAN CORPUSCULAR HGB 31.2 pg (27.0-31.0); MEAN CORPUSCULAR HGB CONC 33.6 g/dl (33.0-37.0); MEAN PLATELET VOLUME 9.1 fl (9.6-12.3); MONO # 0.5 10*3/uL (0.1-1.0); MONO % 8.4 % (3.0-9.0); NEUT # 4.4 10*3/uL (2.3-7.9); NEUT % 70.6 % (47.0-73.0); PLATELET COUNT AUTOMATED 172 10*3/uL (130-400); RED BLOOD COUNT 3.53 10*6/uL (4.50-5.90); RED CELL DISTRI WIDTH 13.1 % (0-14.5); WHITE BLOOD COUNT 6.3 10*3/uL (4.8-10.8)
[2019-12-10 14:24] LABS: ACT PARTIAL THROMBO TIME 24.4 SECONDS (20.0-32.1); INTERNATIONAL NORM RATIO 0.9 (2.0-3.5)
[2019-12-10 14:29] LABS: ALBUMIN 3.4 gm/dl (3.1-4.5); ALKALINE PHOSPHATASE 70 U/L (45-117); BUN 19 mg/dl (7-24); CHLORIDE 97 mmol/L (98-107); CREATININE 1.29 mg/dL (0.70-1.30); LIPASE 112 U/L (73-393); POTASSIUM 3.8 mmol/L (3.5-5.1); SGOT/AST 13 IU/L (3-35); SGPT/ALT 13 U/L (12-78); SODIUM 132 mmol/L (136-145); TOTAL PROTEIN 7.6 gm/dL (6.4-8.2)
--- NOTE | 2019-12-10 14:44 | NUR ---
pt aware that require a urine sample for analysis,call light within reach.
[2019-12-10 15:18] LABS: BILIRUBIN NEGATIVE (NEGATIVE); CLARITY CLEAR (CLEAR); COLOR YELLOW (YELLOW); GLUCOSE 1+ (NEGATIVE); KETONE NEGATIVE (NEGATIVE); SPECIFIC GRAVITY 1.015 (1.005-1.030)
[2019-12-10 15:19] LABS: BLOOD NEGATIVE (NEGATIVE); LEUKO ESTERASE NEGATIVE (NEGATIVE); NITRITE NEGATIVE (NEGATIVE); PH 6.5 (5.0-9.0); UROBILINOGEN 0.2 E.U./dl (0.2-1.0)
[2019-12-10 15:21] LABS: BACTERIA TRACE; RBC 0-2 rbc/hpf (0-2)
[2019-12-10 15:23] LABS: URINE AMPHETAMINES < 1000 (1000ng/ml); URINE BARBITURATES < 200 (200ng/ml); URINE BENZODIAZEPINES < 200 (200ng/ml); URINE CANNABINOIDS (THC) < 50 (50ng/ml); URINE COCAINE < 300 (300ng/ml); URINE METHADONE < 300 (300ng/ml); URINE OPIATES < 300 (300ng/ml)
[2019-12-10 15:28] LABS: URINE PHENCYCLIDINE < 25 (25ng/ml)
[2019-12-10 17:01] VITALS: BP 154/62
--- NOTE | 2019-12-10 17:14 | NUR ---
NIXON COLLINS a 79 year old M admitted via wheel chair from the EMERGENCY ROOM as a voluntary admission by MARIAELENA. Arrived on unit at 1614. ALLERGIES: NKA. Vital signs are: 97.3-63-18 160/72. The client signed the following forms with stated understanding: Authorization For The Release of Medical Information, Clothing List, Consent to Voluntary Admission and Hospitalization, Consent and Release Forms/Receipt of Rights, Acknowledgement of Advance Directive Information, Behavioral Health Consent Form, and Informed Consent of Medications. Ad[facility] under the services of [facility]. A search was conducted and hazardous articles were removed. Client was oriented to the unit. AYANNA ACUNA
[2019-12-10 17:24] VITALS: BP 160/72
--- NOTE | 2019-12-10 17:48 | NUR ---
CALLED [facility]PITAL[facility] AND UPDATED ON NEW PT. ORDER RECEIVED TO PLACE PT UNDER DR KO FOR MEDICAL MANAGEMENT.
[2019-12-10 17:52] VITALS: BP 160/72
--- NOTE | 2019-12-10 18:00 | NUR ---
DR. ZHONG ON UNIT TO ASSESS PATIENT.
[2019-12-10 20:00] VITALS: BP 142/66
--- NOTE | 2019-12-10 20:29 | NUR ---
24 HR chart check completed.
--- NOTE | 2019-12-10 22:24 | NUR ---
P-CONFUSION, POOR HYGIENE I-ASSESS ORIENTATION, REORIENT, REDIRECT, SHOWER PROVIDED WITH 1 STAFF ASSIST, ADMINISTER MEDS, MONITOR SLEEP R-MOOD APPEARS TO BE DEPRESSED & WITH DRAWN. PLEASANTLY CONFUSED WHEN VERBAL WITH STAFF. ALERT & ORIENTED TO PERSON ONLY. STATED YEAR WAS 1980. SHORT & LONGTERM MEMORY DEFICTS PRESENT. WHEN ASKED QUESTIONS, STATES, "I CANT REMEMBER". COMPLIANT WITH SHOWER. STATED, "I FEEL BETTER. I'M JUST SLEEPY". REFUSED HS BEDSIDE GLUCOSE. STATED "I'M NOT A DIABETIC. DONT TAKE ANY MEDICINE FOR THAT". ATE SNACK. COMPLIANT TAKING MEDICATIONS WHOLE. P-CONTINUE TO MONITOR
--- NOTE | 2019-12-11 05:34 | NUR ---
PT HAS SLEPT QUIETLY PAST 2214
[2019-12-11 06:46] LABS: BASO % 0.4 % (0.0-1.0); EOS # 0.2 10*3/uL (0.0-0.4); EOS % 3.1 % (1.0-4.0); HEMATOCRIT 32.2 % (42.0-52.0); LYMPH # 1.3 10*3/uL (1.3-4.4); LYMPH % 25.9 % (27.0-41.0); MEAN CELL VOLUME 94.4 fl (80.0-94.0); MEAN CORPUSCULAR HGB 30.8 pg (27.0-31.0); MEAN CORPUSCULAR HGB CONC 32.6 g/dl (33.0-37.0); MEAN PLATELET VOLUME 9.4 fl (9.6-12.3); MONO # 0.5 10*3/uL (0.1-1.0); MONO % 10.3 % (3.0-9.0); NEUT # 2.9 10*3/uL (2.3-7.9); NEUT % 60.1 % (47.0-73.0); PLATELET COUNT AUTOMATED 173 10*3/uL (130-400); RED BLOOD COUNT 3.41 10*6/uL (4.50-5.90); RED CELL DISTRI WIDTH 13.3 % (0-14.5); WHITE BLOOD COUNT 4.9 10*3/uL (4.8-10.8)
[2019-12-11 07:06] LABS: ALBUMIN 3.1 gm/dl (3.1-4.5); ALKALINE PHOSPHATASE 63 U/L (45-117); BUN 20 mg/dl (7-24); CHLORIDE 103 mmol/L (98-107); CHOLESTEROL 179 mg/dL (<200); CREATININE 1.25 mg/dL (0.70-1.30); HDL CHOLESTEROL 40 mg/dl (40-60); LDL CHOLESTEROL 106 mg/dL (9-159); POTASSIUM 3.9 mmol/L (3.5-5.1); SGOT/AST 11 IU/L (3-35); SGPT/ALT 11 U/L (12-78); SODIUM 135 mmol/L (136-145); TRIGLYCERIDES 167 mg/dl (<150); VLDL CHOLESTEROL 33 mg/dL (6-40)
[2019-12-11 07:40] VITALS: BP 142/68
--- NOTE | 2019-12-11 07:48 | NUR ---
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 Please consult PT if pts functional status declines from baseline. Thank you. Luca Jain SPT [facility]
--- NOTE | 2019-12-11 07:53 | NUR ---
Nursing screen received and chart reviewed. Patient admitted from home with brief psychotic disorder. If patient has a decline in ADLs, transfers, or functional mobility, please send OT orders. Thank you. June Bello, OTR/L
--- NOTE | 2019-12-11 08:19 | NUR ---
DR COX ASSESS PT VIA TELEHEALTH, UPDATE PROVIDED.
[2019-12-11 08:49] LABS: VITAMIN D, 25-HYDROXY 31.6 ng/mL (30-100)
--- NOTE | 2019-12-11 11:09 | NUR ---
DR. ZHONG ON UNIT TO ASSESS PT, UPDATE PROVIDED.
--- NOTE | 2019-12-11 11:20 | NUR ---
Spoke with Radha Gastelum of [facility]. Pt has an open case with APS. Discussed discharge needs of pt. Radha shared that she spoke with pt's son/DPOAHC Yaya Nino and that he confirmed that pt is to be placed in a facility. This freelance writer will plan to speak to Yaya García to further discuss d/c options for pt.
--- NOTE | 2019-12-11 11:36 | NUR ---
AM GROUP PT ATTENDED MORNING GROUP THERAPY AND PARTICIPATED BY LOOKING AT THE NEWSPAPER. PT WAS QUIET AND FOCUSED. PT EXHIBITED NO ADVERSE BEHAVIORS WHILE IN GROUP.
--- NOTE | 2019-12-11 13:08 | NUR ---
COVID SWAB COMPLETE AND SENT TO LAB.
--- NOTE | 2019-12-11 15:01 | NUR ---
P: PT RESTLESS AT TIMES. PT ISOLATIVE TO ROOM THIS MORNING, REFUSED BREAKFAST I: ENOCURAGE PO INTAKE, PROVIDE DIVERSIONAL ACTIVITIES, PROVIDE EMOTIONAL SUPPORT AND 1:1 FOR PT TO VOICE FEELINGS R: PT ALERT TO PERSON ONLY, CONFUSION AND SHORT TERM MEMORY DEFICITS NOTED PER PT BASELINE. PT CALM, REMAINS RESTLESS AT TIMES, DIVERSIONAL ACTIVITES EFFECTIVE. PT CONTINUED TO REFUSE BREAKFAST WITH ENCOURAGEMENT, PT CONSUMED 100% OF LUNCH. NO HALLUCINATIONS OR DELUSIONS NOTED. NO SUICIDAL THOUGHTS OR BEHAVIORS NOTED. NO AGGRESSION OR AGITATION OBSERVED AT THIS TIME. PT AMBULATORY THROUGHOUT UNIT WITH 1 STAFF ASSIST, GAIT OCCASIONALLY UNSTEADY. PT CONTINENT OF BOWEL AND BLADDER, EPISODES OF INCONTINENCE NOTED, CARE PROVIDED NEEDED. P: MONITOR PT BEHAVIORS ON Q15 MIN SAFETY CHECKS, ENCOURAGE MED COMPLIANCE, ENCOURAGE PO INTAKE, CONTINUE TO OFFER DIVERSIONAL ACTIVITIES, RE-ORIENT AND PRESENT REALITY WITH EACH INTERACTION AND NEEDED, PROVIDE EMOTIONAL SUPPORT AND 1:1 FOR PT TO VOICE FEELINGS.
--- NOTE | 2019-12-11 15:37 | NUR ---
PM GROUP PT ATTENDED AFTERNOON GROUP THERAPY AND PARTICIPATED BY WATCHING THE MOVIE. PT WAS FOCUSED AND QUIET. PT EXHIBITED NO AGITATION OR AGGRESSION WHILE IN GROUP.
[2019-12-11 19:21] VITALS: BP 125/60
--- NOTE | 2019-12-11 19:47 | NUR ---
24 HR chart check completed.
--- NOTE | 2019-12-11 20:59 | NUR ---
P-CONFUSION I-ASSESS ORIENTATION, REORIENT, ADMINISTER MEDS, MONITOR SLEEP R-PT HAS BEEN RESTING IN BED QUIETLY SINCE THE ONSET OF THE SHIFT. DEPRESSED MOOD. PLEASANTLY CONFUSED WHEN TALKING TO STAFF. LIMITED WITH CONVERSATION. ALERT & ORIENTED TO PERSON ONLY. SHORT & PLUNGER SHOVEL OPERATOR MEMORY DEFICTS PRESENT. WHEN ASKED QUESTIONS, STATES, "I CANT REMEMBER." COMPLIANT WITH HS MEDS. HS BEDSIDE GLUCOSE 243. COVERAGE GIVEN. PT DID NOT COME DOWN FOR SNACK BUT ATE 4 OZ OF APPLESAUCE WITH MEDS. P-CONTINUE TO MONITOR
--- NOTE | 2019-12-12 00:47 | NUR ---
PT HAS BEEN UP X2. ONCE @ 2315 & WAS AMBULATORY & CONTINENT OF URINE. UP AGAIN @ 0030 & WAS INCONTINENT OF URINE & MEDIUM BM.
--- NOTE | 2019-12-12 02:50 | NUR ---
PT AWAKE & UP TO THE BATHROOM. INCONTINENT OF ANOTHER BM
--- NOTE | 2019-12-12 05:51 | NUR ---
PT HAS SLEPT APPROX 8 HOURS BROKEN SLEEP.
--- NOTE | 2019-12-12 06:05 | NUR ---
PT INCONTINENT OF ANOTHER BM. DID STATE EARLIER TO STAFF, "WHERE'S MY 2 GIRLS AT?".
--- NOTE | 2019-12-12 06:32 | NUR ---
AM BEDSIDE GLUCOSE 173
[2019-12-12 08:00] VITALS: BP 146/63
--- NOTE | 2019-12-12 08:30 | NUR ---
PHYSICAL THERAPY Physical Therapy evaluation completed in [facility] with full evaluation to follow. Recommend physical therapy per plan of care and AL vs home w 24 hr care upon discharge. Thank you for this referral. Luca Jain SPT [facility]
--- NOTE | 2019-12-12 08:35 | NUR ---
DR ZHONG ON UNIT TO ASSESS PT, UPDATE PROVIDED.
--- NOTE | 2019-12-12 09:00 | NUR ---
Treatment Plan meeting was held this a.m. with MALENA Smith, RN, AT, FOOD TECHNOLOGY TEACHER-S and Mechanical Engineering Professor. Plan for discharge Next Week. It is reported that Pt. Son would like him Placed.
--- NOTE | 2019-12-12 09:05 | NUR ---
Occupational Therapy evaluation completed on three with full evaluation to follow. Recommend occupational therapy per plan of care and home with 29/11 supervision assist versus assisted living facility upon discharge. Thank you for this referral. June Bello OTR/L
--- NOTE | 2019-12-12 13:32 | NUR ---
Spoke with pt's son Yaya García by phone for family meeting. Discussed pt's current status and events/behaviors which led to pt's [facility] admission. Discussed discharge needs. Yaya voiced understanding that pt requires 24 hour supervision for safety and that confirmed that it has been a struggle to care for pt at home. Yaya would like pt to discharge to [facility] if possible. However, he is open to any /AL that will accept pt. Discussed payer source. Yaya voiced understanding that pt will be private pay at either [facility] or AL.
--- NOTE | 2019-12-12 15:48 | NUR ---
PM GROUP PT DID NOT ATTEND AFTERNOON GROUP THERAPY. PT WAS IN BED RESTING.
--- NOTE | 2019-12-12 16:54 | NUR ---
P: PT RESTLESS AND IRRITABLE AT TIMES. PT REFUSED AM LANTUS. I: PROVIDE EMOTIONAL SUPPORT AND 1:1 FOR PT TO VOICE FEELINGS, ENCOURAGE MED COMPLIANCE, ENCOURAGE GROUP PARTICIPATION AND SOCIALIZATION, PROVIDE DIVERSIONAL ACTIVITIES R: PT ALERT TO PERSON ONLY, CONFUSION AND SHORT TERM MEMORY DEFICITS NOTED PER PT BASELINE. PT CALM, REMAINS IRRITABLE AND RESTLESS AT TIMES, DIVERSIONAL ACTIVITIES EFFECTIVE. PT CONTINUED TO REFUSE AM LANTUS TODAY, BECOMING AGITATED WITH STAFF. NO HALLUCINATIONS OR DELUSIONS NOTED. PT DENIES ANY SUICIDAL THOUGHTS. PT AMBULATORY THROUGHOUT UNIT WITH STANDYBY ASSIST D/T OCCASIONALLY UNSTEADY GAIT. PT CONTINENT OF BOWEL AND BLADDER, EPISODES OF INCONTINENCE NOTED, CARE PROVIDED NEEDED. P: MONITOR PT BEHAVIORS ON Q15 MIN SAFETY CHECKS, ENCOURAGE MED COMPLIANCE-UNABLE TO PROVIDE MED EDUCATION D/T COGNITION, RE-ORIENT AND PRESENT REALITY WITH EACH INTERACTION AND NEEDED, CONTINUE TO OFFER DIVERSIONAL ACTIVITIES, PROVIDE EMOTIONAL SUPPORT AND 1:1 FOR PT TO VOICE FEELINGS.
[2019-12-12 19:53] VITALS: BP 142/60
--- NOTE | 2019-12-12 21:12 | NUR ---
Patient alert and oriented to person only with confusion noted. Mood calm, cooperative but isolative to his room. Memory deficits noted. Patient denies SI/HI,hallucinations or delusions. No overt s/s of any responding to internal stimuli noted at this time. Patient compliant with HS medications without any difficulty. Provided 1:1 for emotional support. Redirected/reoriented when needed. Plan to continue to encourage medication compliance. Will also continue to provide emotional support and continue to redirect/reorient when needed/appropriate. Also will continue to monitor moods/behaviors. Q 15 minute safety checks continued and maintained. See [facility] flowsheet for further documentation.
--- NOTE | 2019-12-13 05:30 | NUR ---
Patient slept approx. 8 hours throghout shift. Q 15 minute safety checks continued and maintained.
[2019-12-13 07:30] VITALS: BP 155/63
--- NOTE | 2019-12-13 07:35 | NUR ---
PHYSICAL THERAPY PT SUPINE IN BED UPON ARRIVAL. PT IDENTIFIED BY NAME AND . PT AGREED TO ALL PHYSICAL THERAPY TREATMENT THIS VISIT. OT PRESENTS FOR OBSERVATION DURING TREATMENT. PT PERFORMED SUPINE TO SITTING EOB WITH Anand X2. PT PERFORMED SITTING EOB STATIC WITH CGA. PT AT THIS TIME C/O CHEST PAIN AND OT WENT TO GET NURSE. NURSE CAME IN AND TOOK VITALS. PT O2 WAS 100% SPO2 AND BP WAS 138/56. NURSE THEN CALLED DOCTOR TO COME CHECK PT. PT PERFORMED STS TOTAL OF 4X FROM EOB WITH Anand-MODa X1. PT PERFORMED STANDING BALANCE STATIC WITH MODaX1 AND VC'S FOR POSTURE. PT PERFORMED SIT TO SUPINE IN MINaX2. PT REQUIRED DEPENDANT LIFT TO SLIDE TO HEAD OF BED. PT SUPINE IN BED WITH DOCTOR PRESENT AT END OF SESSION. PT SEEN 1:1 FOR 25MINS. DESTINEY MARTIN PTA.
--- NOTE | 2019-12-13 07:40 | NUR ---
OT NOTE Patient was seen this date for occupational therapy treatment to maximize safety and independence with ADLs. [facility] nursing gave approval to see patient. preschool teacher's assistant present for observation only. Patient agreeable to OT treatment this AM with encouragement. Upon arrival, patient grossly incontinent of bowel and bladder. Patient completed bed mobility to EOB with Min Ax2. While seated EOB, patient mildly lethargic and complaining of chest pain, did not rate on a scale of 1-10. Nursing into room to assess, BP 138/56. Nursing gave approval to complete toileting at EOB with the patient due to incontinence. Patient participated in toileting hygiene and clothing management at EOB with Max A including 2 functional sit/stands with Mod A. MD into room and patient was then returned supine with Mod Ax2. Patient in room with vascular technician at conclusion. Nursing aware that patient returned supine, vascular technician in room, and patient clean with new linens. Will continue with POC as able. Thank you. June Bello OTR/L
--- NOTE | 2019-12-13 07:48 | NUR ---
THERAPY NOTIFIED THIS NURSE THAT PT WAS COMPLAINING OF CHEST PAIN. NURSE WENT IN TO ASSESS PT AND WHEN ASKED WHAT WAS WRONG PT STATED "I DON'T KNOW, MY CHEST HURTS" WHILE POINTING TOWARDS HIS CENTER CHEST. VS P-115 THEN DECREASED TO 90 THEN TO 60 THEN DOWN TO 59, R-18 BP- 136/59 SPO2- 100%RA. SPOKE WITH DR HERNANDEZ AT [phone], ADVISED THAT UPON ADMISSION HAD ELEVATED TROPONIN'S UPON ADMISSION AND UPON ADMISSION LAST TIME. PER DR HERNANDEZ SHE WILL ORDER TROPONIN LEVELS AND A STAT EKG. 0755- DR HERNANDEZ ON THE UNIT TO ASSESS PT. LAB HERE TO DRAW PT LABS. WILL CONTINUE TO MONITOR.
--- NOTE | 2019-12-13 08:30 | NUR ---
Treatment Plan meeting was held this a.m. with Dr. Cano RN, INBOUND SALES CONSULTANT-S and Latin Dancer. Plan for discharge Next Week. Pt. requires placement Due to Family unable to care for Pt. at home.
--- NOTE | 2019-12-13 08:36 | NUR ---
NOTIFIED OF EKG RESULT: SINUS RHYTHM, RATE 58. ST ELEVATION, CONSIDER INFERIOR INJURY. STATES SHE WILL REVIEW. NO ORDERS RECIEVED AT THIS TIME.
--- NOTE | 2019-12-13 08:45 | NUR ---
DR HERNANDEZ CALLED AND ADVISED THAT SHE REVIEWED EKG AND ORDERED ADDITIONAL LAB WORK. PER DR HERNANDEZ EKG IS SIMILIAR TO PREVIOUS ONE, SHE WILL MONITOR LAB WORK AND GO FROM THERE. NO ADDITIONAL ORDERS AT THIS TIME.
[2019-12-13 08:56] LABS: BASO % 0.4 % (0.0-1.0); EOS # 0.2 10*3/uL (0.0-0.4); EOS % 2.5 % (1.0-4.0); HEMATOCRIT 35.3 % (42.0-52.0); LYMPH # 1.6 10*3/uL (1.3-4.4); LYMPH % 20.4 % (27.0-41.0); MEAN CELL VOLUME 94.1 fl (80.0-94.0); MEAN CORPUSCULAR HGB 31.2 pg (27.0-31.0); MEAN CORPUSCULAR HGB CONC 33.1 g/dl (33.0-37.0); MONO # 0.6 10*3/uL (0.1-1.0); MONO % 7.5 % (3.0-9.0); NEUT # 5.4 10*3/uL (2.3-7.9); NEUT % 68.8 % (47.0-73.0); PLATELET COUNT AUTOMATED 182 10*3/uL (130-400); RED BLOOD COUNT 3.75 10*6/uL (4.50-5.90); RED CELL DISTRI WIDTH 13.2 % (0-14.5); WHITE BLOOD COUNT 7.9 10*3/uL (4.8-10.8)
[2019-12-13 09:11] LABS: ALBUMIN 3.2 gm/dl (3.1-4.5); ALKALINE PHOSPHATASE 65 U/L (45-117); BUN 20 mg/dl (7-24); CHLORIDE 102 mmol/L (98-107); CREATININE 1.34 mg/dL (0.70-1.30); POTASSIUM 3.8 mmol/L (3.5-5.1); SGOT/AST 11 IU/L (3-35); SGPT/ALT 12 U/L (12-78); SODIUM 135 mmol/L (136-145); TOTAL PROTEIN 7.1 gm/dL (6.4-8.2)
--- NOTE | 2019-12-13 12:00 | NUR ---
NIKOLAI FROM LAB CALLED TO REPORT CRITICAL TROPONIN OF 0.047, RESULT REPEATED BACK. DR HERNANDEZ NOTIFIED OF RESULTS, NO FURTHER ORDERS AT THIS TIME.
--- NOTE | 2019-12-13 14:28 | NUR ---
PASRR returns. Pt. is ruled out from further review. Pt. is permitted to enter Nursing Facility.
--- NOTE | 2019-12-13 14:44 | NUR ---
Left Message for the Apartment Hotel Manager of [facility] to follow up Referral Faxed today.
--- NOTE | 2019-12-13 15:12 | NUR ---
CALLED DR HERNANDEZ AND ADVISED THAT PT IS COMPLAINING OF CHEST PAIN GOING INTO HIS ARM, PT ALSO STATED THAT IT'S BEEN HURTING ALL DAY AND HASN'T STOPPED." PER DR HERNANDEZ HIS TROPONINS ARE TRENDING DOWN, AND SHE WILL SPEAK TO DR ZHONG. NO FURTHER ORDERS AT THIS TIME.
--- NOTE | 2019-12-13 15:18 | NUR ---
DR HERNANDEZ ON UNIT TO ASSESS, PER DR HERNANDEZ, SHE WILL TAKE A LOOK AT HIS LABS AGAIN, GIVE TYLENOL FOR PAIN DUE PT TO PAIN WORSENING UPON PALPATION. STAFF WILL CONTINUE TO MONITOR. NO FURTHER ORDERS AT THIS TIME.
--- NOTE | 2019-12-13 17:36 | NUR ---
NO ADVERSE MOODS OR BEHAVIORS NOTED AT THIS TIME. PT ALERT TO PERSON ONLY, CONFUSION AND SHORT TERM MEMORY DEFICITS NOTED PER PT BASELINE. PT CALM, MOOD IS STABLE. PT PLEASANT AND INTERACTIVE WITH STAFF AND PEERS. PT MED COMPLIANT WITHOUT DIFFICULTY, UNABLE TO PROVIDE MED EDUCATION D/T COGNITION. NO HALLUCINATIONS OR DELUSIONS NOTED. NO SUICIDAL THOUGHTS OR BEHAVIORS NOTED. PT AMBULATORY THROUGHOUT UNIT WITH STANDBY ASSIST, GAIT OCCASIONALLY UNSTEADY. PT CONTINENT OF BOWEL AND BLADDER, WITH EPISODES OF INCONTINENCE NOTED, CARE PROVIDED NEEDED. PLAN IS TO MONITOR PT BEHAVIORS ON Q15 MIN SAFETY CHECKS, ENCOURAGE MED COMPLIANCE, ENCOURAGE GROUP PARTICIPATION AND SOCIALIZATION, PROVIDE EMOTIONAL SUPPORT AND 1:1 FOR PT TO VOICE FEELINGS.
[2019-12-13 19:54] VITALS: BP 130/54
--- NOTE | 2019-12-13 21:23 | NUR ---
Patient alert and oriented to person only with confusion noted. Mood calm, cooperative,slightly interactive but mostly isolative to self. Memory deficits noted. Patient denies SI/HI,hallucinations or delusions. No overt s/s of any responding to internal stimuli noted at this time. Patient compliant with HS medications without any difficulty. Provided 1:1 for emotional support. Redirected/reoriented when needed. Plan to continue to encourage medication compliance. Will also continue to provide emotional support and continue to redirect/reorient when needed/appropriate. Also will continue to monitor moods/behaviors. Q 15 minute safety checks continued and maintained. See [facility] flowsheet for further documentation.
--- NOTE | 2019-12-14 00:31 | NUR ---
24 HR chart check completed.
--- NOTE | 2019-12-14 05:44 | NUR ---
Patient slept approx. 7.5 hours throughout shift. Q 15 minute safety checks continued and maintained.
--- NOTE | 2019-12-14 07:35 | NUR ---
OT NOTE Prior to coming to the floor spoke with nurse Beebe and reported that therapy was coming to see this pt. Upon arrival pt was supine in bed. Pt identified by name and . Pt declined therapy at this time as well as breakfast. Reported to nursing that pt was decling and therapy will check back at a later time. Will continue with POC as able. CELIA Dominique
--- NOTE | 2019-12-14 07:37 | NUR ---
PHYSICAL THERAPY ATTEMPTED TO SEE PT FOR PHYSICAL THERAPY THIS A.M. AND PT REFUSED TO GET OUT OF BED. PT STATED "I AM NOT GETTING UP." PHYSICAL THERAPY WILL ATTEMPT AT A LATER TIME/DATE. DESTINEY MARTIN PTA
--- NOTE | 2019-12-14 07:41 | NUR ---
Patient resting quietly with no c/o discomfort. Respirations easy and regular. Vital signs stable. No overt distress. Declined to get up for breakfast at this time despite multiple attempts. JUSTYN GONZALEZ
[2019-12-14 07:43] VITALS: BP 138/60
--- NOTE | 2019-12-14 08:30 | NUR ---
Treatment Plan meeting was held this a.m. with Dr. Cano via telephone, VOLUNTEER COORDINATOR Sarah RN, MACHINE TECH-S and Etch Operator [employer]iconductor Wafers in attendance. Plan for discharge Next Week. Pt. is for Placement. [facility] approved Nursing Facility. Referral to [facility] at [facility].
--- NOTE | 2019-12-14 09:08 | NUR ---
Spoke with pt's son Yaya García this AM. Provided update on pt's status. Yaya then stated, "I want to come get my dad today." Discussed this further and offered that it is best to place pt from hospital than from home. Educated Yaya about the progression of pt's illness and reminded him that pt has had violent tendencies at home. Yaya agreed to all of this but continued to voice that he believes that pt should return home. Yaya did share that he is feeling guilty about placing pt. Empathized with Yaya and discussed this further. It was decided that Yaya would think about this further and he also planned on speaking to Radha Gastelum of APS. After conversation with Yaya, this bond writer contacted Radha Gastelum and made her aware of above conversation with Yaya.
--- NOTE | 2019-12-14 10:38 | NUR ---
DR. LOUIS ON UNIT TO ASSESS PATIENT.
--- NOTE | 2019-12-14 10:52 | NUR ---
Refaxed referral to [facility] Zheng Perez [phone].
--- NOTE | 2019-12-14 11:25 | NUR ---
OT NOTE Second attempt made to see pt this A.M. for OT session and upon arrival pt was supine in bed. Pt identified by name and . Pt continued to decline therapy at this time, pt stated "I quit". Attempted to encourage pt for participation and coming to the dining martinez for lunch, pt continued to decline. Pt left supine in bed with bed and body alarms activated for safety. Nurse notified of pt declining. Will continue with with POC as able. TAMAR Dominique/Carleen
--- NOTE | 2019-12-14 11:25 | NUR ---
PHYSICAL THERAPY PT SUPINE IN BED UPON ARRIVAL. PT STATED " IM QUITTING" WHEN ASK TO TAKE PART IN THERAPY AT SECOND ATTEMPT ON THIS DATE. PHYSICAL THERAPY WILL ATTEMPT AT A LATER TIME/DATE. DESTINEY MARTIN PTA
--- NOTE | 2019-12-14 13:33 | NUR ---
Received call from Florence at the [facility]. Florence states that she spoke with Mrs. Finchse who advised that after review of Refferal, Pt. is not appropriate for any of their Memory Care Facilities. She states that she had also notified the Patient Son.
--- NOTE | 2019-12-14 13:48 | NUR ---
Referral faxed to [facility]. Left Message for Chasity Quintana who is Admission Coordinator at facility [phone].
--- NOTE | 2019-12-14 14:45 | NUR ---
case management talked with Vivian from [employer], patient's U stay has been approved until review today, review given to Vivian, she stated she will have to send this case to peer to peer, Laura dunbar phone number give for peer to peer, reference number is [id number]
--- NOTE | 2019-12-14 15:04 | NUR ---
PHYSICAL THERAPY CO-SIGN I approve of the Physical Therapy notes written above. Indiana Walsh PT
--- NOTE | 2019-12-14 15:26 | NUR ---
P- Depressed mood, isolative I- Orientation, mood and behaviors assessed. Assessed pt for SI/HI, hallucinations, paranoia and/or delusions. Assistance with ADL care provided as needed. Encouraged pt to attend and participate in amador milieu groups and activities. R- Pt is alert and oriented to self only, otherwise pleasantly confused. Memory gaps noted. Resps easy and even on room air. Mood appears depressed, pt states "I just want to get my life right. This is no kind of life". Pt gestures to indicate he is referring to his physical limitations d/t right sided weakness. Pt also presents with expressive asphasia and word finding difficulties. However, pt remains pleasant and cooperative with all areas of care. Pt showered this afternoon without difficulty. No aggressive behaviors displayed. Pt denies SI/HI, intent or plan. Pt denies hallucinations, no response to internal stimuli noted. No paranoia or delusions noted. Pt is medication compliant without difficulty. Pt isolates to room, walks the hallways at times, pt comes to dining room for meals with encouragement. No distress noted. P- Plan to continue current treatment, continue to monitor mood and behaviors. Provide appropriate reorientation and redirection as needed.
--- NOTE | 2019-12-14 15:43 | NUR ---
OCCUPATIONAL THERAPY CO-SIGN I approve of the Occupational Therapy notes written above. MICKEY LOPEZ, OTR/L
--- NOTE | 2019-12-14 17:40 | NUR ---
Shift chart check completed.
[2019-12-14 20:00] VITALS: BP 126/62
--- NOTE | 2019-12-14 21:34 | NUR ---
P-CONFUSION, ISOLATIVE I-PROVIDED REDIRECTION WITH 1:1 THERAPEUTIC COMMUNICATION AND INTERVENTIONS. PRESENTED REALITY NEEDED. ENCOURAGED AND EDUCATED PATIENT ABOUT MEDICATION AND COMPLIANCE R-PATIENT MEDICATION COMPLIANT WITH ENCOURAGEMENT. PATIENT REFUSED SNACK AT HS BUT PROVIDED FLUIDS. PATIENT HARD OF HEARING. PATIENT REDIRECTED TO ROOM AND BATHROOM THROUGHOUT SHIFT. PATIENT AMBULATING ON UNIT WITH ABNORMAL BUT STEADY GAIT. PATIENT WITH NO HALLUCINATIONS OR DELUSIONS. PATIENT WITH NO SUICIDAL OR HOMICIDAL IDEATIONS. P-CONTINUE TO ENCOURAGE MEDICATION COMPLIANCE, CONTINUE TO PRESENT REALITY, ENCOURAGE GROUP THERAPY WHILE AWAKE
--- NOTE | 2019-12-15 06:19 | NUR ---
PATIENT SLEPT 6 HOURS OF UNINTERRUPTED SLEEP THROUGHOUT SHIFT. Q 15 MINUTE CHECKS MAINTAINED. 24 HR chart check completed.
[2019-12-15 07:42] VITALS: BP 136/53
--- NOTE | 2019-12-15 07:44 | NUR ---
Patient resting quietly with no c/o discomfort. Respirations easy and regular. Vital signs stable. No overt distress. Declined breakfast x3 attempts, prefers to remain in bed at this time. JUSTYN GONZALEZ
--- NOTE | 2019-12-15 08:25 | NUR ---
MARYANN ZAMBRANO CNP ON UNIT TO ASSESS PATIENT.
--- NOTE | 2019-12-15 09:02 | NUR ---
Subhash PMP-BC on unit to see pt at this time, update given.
--- NOTE | 2019-12-15 16:17 | NUR ---
Shift chart check completed.
[2019-12-15 19:51] VITALS: BP 150/58
--- NOTE | 2019-12-15 21:47 | NUR ---
24 HR chart check completed.
--- NOTE | 2019-12-15 22:45 | NUR ---
P-CONFUSION, ISOLATIVE I-PROVIDED REDIRECTION WITH 1:1 THERAPEUTIC COMMUNICATION AND INTERVENTIONS. PRESENTED REALITY NEEDED. ENCOURAGED AND EDUCATED PATIENT ABOUT MEDICATION AND COMPLIANCE R-PATIENT MEDICATION COMPLIANT AT HS. PATIENT REFUSED SNACK AT HS BUT PROVIDED FLUIDS. PATIENT HARD OF HEARING. PATIENT REDIRECTED TO ROOM AND BATHROOM THROUGHOUT SHIFT. PATIENT AMBULATING ON UNIT WITH ABNORMAL BUT STEADY GAIT. PATIENT WITH NO HALLUCINATIONS OR DELUSIONS. PATIENT WITH NO SUICIDAL OR HOMICIDAL IDEATIONS. P-CONTINUE TO ENCOURAGE MEDICATION COMPLIANCE, CONTINUE TO PRESENT REALITY, ENCOURAGE GROUP THERAPY WHILE AWAKE
--- NOTE | 2019-12-15 23:45 | NUR ---
PATIENT PREOCCUPIED WITH THE CLOCK IN HIS ROOM. PATIENT READING THE NUMBERS AND STATING THAT IS HOW MUCH MONEY HE HAS HAD. PATIENT SITTING UP ON SIDE OF BED AND REDIRECTED TO LAY DOWN. PATIENT UP TO RESTROOM THROUGHOUT SHIFT. FLUIDES PROVIDED
[2019-12-16 06:30] LABS: CREATININE 1.44 mg/dL (0.70-1.30)
[2019-12-16 07:44] VITALS: BP 140/56
--- NOTE | 2019-12-16 08:35 | NUR ---
MARYANN ZAMBRANO BRIAR CUTTER ON UNIT TO ASSESS PT, UPDATE PROVIDED.
--- NOTE | 2019-12-16 09:57 | NUR ---
PT INCREASINGLY CONFUSED. PT TOILETED AND ASSISTED TO THE DINNING ROOM. PT QUESTIONED WHERE HE IS AND ATTEMPTED TO REORIENT PT; HOWEVER, PT REMAINED CONFUSED. PT THOUGHT HE WAS IN AN ELEVATOR AND THOUGHT HE WAS JUST DRIVING. ASSURED PT HE IS SAFE AND IN THE HOSPITAL AND PT DENIED BEING IN THE HOSPITAL. PT STATED "YOU ARE TRYING TO TRICK ME" ASSURED PT WE ARE HERE TO HELP HIM GET BETTER. PT STATED HE DID NOT BELIEVE THAT. PT HAD INCREASED AGITATION HE WAS CONFUSED. PT STATED "I THINK I AM GOING CRAZY". PT REFUSED BREAKFAST AND FLUIDS MULTIPLE TIMES. PT REFUSED TO STAY IN THE DINNINGROOM AND CONTINUED BACK TO BED. PT CONTINUES TO SAY "SOMETHING IS NOT RIGHT". THIS NURSE SET BED ALARM TO ALERT THE STAFF IF PT GETS OUT OF BED AND PT STATED "DONT MESS WITH MY BED". WILL CONTINUE TO MONITOR PTS' BEHAVIORS WITH Q15 MINUTE SAFETY CHECKS. PT ALERT TO PERSON ONLY. NO ANGRY OUTBURSTS NOTED AT THIS TIME. NO HALLUCINATIONS NOTED. PT APPEARS PARANOID THINKING STAFF ARE OUT TO TRICK HIM. MEDICATION COMPLIENT WITHOUT DIFFICULTY. SEE [facility] FLOWSHEETS FOR SPECIFIC MONITORING. WILL ATTEMPT TO REORIENT PT WHEN NEEDED.
[2019-12-16 19:47] VITALS: BP 142/62
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
--- NOTE | 2019-12-17 06:31 | NUR ---
PT HAS SLEPT PAST [id number]
--- NOTE | 2019-12-17 06:46 | NUR ---
PATIENT IRRITABLE AND CURSING THIS AM, REFUSING AM CARE AND AM MEDICATIONS. STATING TO STAFF "GET THE HELL OUT OF HERE". WILL RE-APPORACH AT A LATER TIME.
--- NOTE | 2019-12-17 07:15 | NUR ---
OT NOTE Prior to coming to the floor spoke with nurse Delisa who reported that pt was real irritable with staff this morning. Requesting to check back later this A.M for therapy session. Will continue with POC as able. TAMAR Dominique/Carleen
[2019-12-17 07:20] VITALS: BP 151/56
--- NOTE | 2019-12-17 08:01 | NUR ---
PT ALERT TO PERSON WITH CONFUSION AND MEMORY GAPS NOTED. STABLE MOOD. CALM AND INTERACTIVE WITH STAFF AND PEERS. DENIES HALLUCINATIONS AND DELUSIONS. DENIES SI/HI. PT JOKING THIS MORNING AND LAUGHING. MEDICATION COMPLIANT WITHOUT DIFFICULTY. UNABLE TO PROVIDE MEDICATION EDUCATION DUE TO COGNITIVE IMPAIRMENT. DENIES PAIN AT THIS TIME. RESPIRATIONS EASY AND NONLAOBERED. 1:1 PROVIDED FOR THERAPEUTIC COMMUNICATION. UNSTEADY GAIT AT TIMES. 1 ASSIST WITH TRANSFERS AND TOILETING. SEE [facility] FLOWSHEET FOR SPECIFIC MONITORING. CONTINUE TO MONITOR BEHAVIORS WITH Q15 MINUTE SAFETY CHECKS. CONTINUE TO REORIENT PT WHEN NEEDED.
--- NOTE | 2019-12-17 08:35 | NUR ---
Received a call this AM from pt's son Yaya García stating that he and his have decided to bring pt back to their home. Discussed this further. This life insurance underwriter asked if Yaya had been in contact with Radha Gastelum of Adult Protective Services. Yaya stated that he had been unable to reach her. Informed Yaya that this life insurance underwriter will contact Radha and have Radha phone Yaya. After conversation with Yaya, contacted Radha who stated that she will contact Yaya Jr to further discuss discharge plan.
--- NOTE | 2019-12-17 10:18 | NUR ---
Spoke with Radha Gastelum of Adult Protective Services who stated that she had spoken with pt's son Yaya García and that pt can discharge from [facility] to [facility]'s home. Spoke with Yaya García and with Dr Cano after speaking to Radha. Discharge plan is for pt to discharge on Tuesday at 10:00 returning to [facility]'s home.
--- NOTE | 2019-12-17 11:46 | NUR ---
PHYSICAL THERAPY TREATMENT TIME: 11:30 AM - 11:46 AM 16 MINUTES Patient presented to therapy in supine with bed alarm activated and head of bed flat. Patient was very groggy and finally agreed to do PT. Patient gives informed consent. Patient transferred supine to sitting on EOB with MOD A X 1. Patient sat on EOB unassisted. Patient completed sit to stand from EOB with MOD A X 1. Patient ambulated with no assistive device and CGA for 300' x 1 without LOB and no other difficulty. Patient had no LOB during gait. Patient required the CGA on the L side. PATIENT SAT IN CHAIR IN ACTIVITY ROOM WITH CGA. Patient was left in chair in table in activity room for lunch wit hNURSE present and other patients. Patient was 1:1 with this SCHOOL LUNCH MANAGER FOR 16 MINUTES TOTAL. TAMAR SAMANO PRESENT WITNESS TO THIS TREATMENT. FUENTES BLAKE SCHOOL LUNCH MANAGER
--- NOTE | 2019-12-17 11:47 | NUR ---
OT NOTE Prior to start of session spoke with pt's nurse who reported that pt was able to be seen for therapy at this time. Pt was seen this A.M. 1:1 for 15 minute OT session with DISTRIBUTOR OPERATOR and nursing staff present for observation only. Upon arrival pt was supine in bed. Pt identified by name and and had no complaints at this time. Pt transferred supine to sit EOB with Francy for assist with UB. Sit to stand completed from bed level with modA due to low surface. Functional mobility was then completed to the bathroom and back with [facility]. Then challenged pt's dynamic standing tolerance needed for increased I and enhanced endurance. Pt was able to tolerate aprox 5 minutes at a time before sitting due to fatigue. Functional mobility completed to the dining martinez with [facility] where he was left sitting upright under [facility] staff supervision. Continue with POC as able. TAMAR Dominique/Carleen
--- NOTE | 2019-12-17 12:24 | NUR ---
Treatment team meeting this AM with Dr Cano, CIO, RN, and this CORRECTION OFFICER SUPERVISOR-S. Pt's behaviors are stable. Planned discharge date in 12/19/19 with pt returning to his son's home. [facility] will [facility] scheduled at [facility].
--- NOTE | 2019-12-17 13:03 | NUR ---
MARYANN ZAMBRANO WOOD AND HARDWARE OUTFITTER ON UNIT TO ASSESS PT, UPDATE PROVIDED.
--- NOTE | 2019-12-17 14:44 | NUR ---
DURING PT SHOWER. PT HAD TO BE GIVEN SIMPLE INSTRUCTIONS TO COMPLETE THE SHOWER. FOR EXAMPLE: DROP THE RAG ON THE SHOWER FLOOR, WASH YOUR FACE, HOLD YOUR HEAD BACK, DRY YOUR ARM, ETC. PT NEEDED MODERATE ASSISTANCE WITH ALL ASPECTS OF BATHING, DRESSING, AND TRANSFERS. NO ADVERSE BEHAVIORS NOTED DURING HOC. PT JOKING, LAUGHING, AND SMILING DURING HOC.
[2019-12-17 19:51] VITALS: BP 130/60
--- NOTE | 2019-12-17 22:35 | NUR ---
NO ADVERSE BEHAVIORS NOTED SO FAR THIS SHIFT. PATIENT ALERT TO SELF, PLEASANTLY CONFUSED. PT SAT IN DINING ROOM FOR HS SNACK AND TO WATCH TV WITH PEERS, ISOLATIVE TO SELF, CALM. ATE 100% OF HS SNACK. PT MEDICATION COMPLIANT WITHOUT DIFFICULTY, UNABLE TO EDUCATE DUE TO COGNITION. PT DENIES SI/HI OR HALLUCINATIONS, NO NOTED RESPONDING TO INTERNAL STIMULI. PT AMBULATORY WITH A STEADY GAIT, X1 ASSIST WITH ADLS, CONTINENT/INCONTINENT OF BOWEL AND BLADDER. NO PHYSICAL COMPLAINTS VOICED. NO AGGRESSION OR AGITATION OBSERVED. PLAN IS TO CONTINUE TO MONITOR MOOD AND BEHAVIORS. REORIENT AND PRESENT REALITY AT NEEDED. PROVIDE 1:1 WITH THERAPEUTIC INTERVENTIONS. ENCOURAGE MEDICATION COMPLIANCE AND EDUCATE. MAINTAIN Q 15 MIN CHECKS AND PRN FOR SAFETY.
--- NOTE | 2019-12-18 05:56 | NUR ---
PATIENT SLEPT APPROX 6 HOURS WITH X1 AWAKENING TO USE THE RESTROOM WITH ASSISTANCE, INCONTINENT CARE PROVIDED WITHOUT DIFFICULTY. NO DISTRESS NOTED.
--- NOTE | 2019-12-18 07:16 | NUR ---
PATIENT REFUSED AM PO MEDICATIONS, STATED "LEAVE ME ALONE, I WANT TO SLEEP LONGER". UNABLE TO EDUCATE DUE TO COGNITION.
[2019-12-18 07:37] VITALS: BP 126/58
--- NOTE | 2019-12-18 11:52 | NUR ---
Group therapy session this AM with discussion centering around happiness. Pt was present for most of group time but did not participate due to cognitive deficits. Pt sat outside of group and did not engage in conversation with this play writer or pt's peers.
--- NOTE | 2019-12-18 12:45 | NUR ---
OT NOTE Prior to coming to the floor spoke with pt's nurse and reported that therapy was coming to the floor to treat this pt, nurse gave approval. Pt was seen this P.m. 1:1 for 15 minute OT session with CHILD CARE CENTRE MANAGER and nursing staff present for observation only. Upon arrival pt was sitting upright in the dining martinez at the table. Pt identified by name and and had complaints of feeling tired this afternoon. Sit to stand completed from chair level with CGA followed by functional mobility to the bathroom with CGA for safety. While ambulating to the bathroom pt had soiled his pants. Pt transferred on to the standard commode with CGA for safety. Pt's depends and pants were doffed and new donned with Francy for inital start over his feet. Toilet hygiene completed with SBA while seated. Pt then completed sit to stand from standard commode with CGA. Functional mobility completed back to the hallway where his dynamic standing balance was challenged while weight shifting, crossing midline, and reaching over all planes of motion. Pt was able to tolerate aprox F+ standing balance throughout. Functional mobility completed back to the dining martinez with CGA where he was left sitting upright at the table under [facility] staff supervision. Continue with POC as able. TAMAR Dominique/Carleen
--- NOTE | 2019-12-18 13:31 | NUR ---
PHYSICAL THERAPY TREATMENT TIME: OUT 12:45 PM 24 MINUTES TOTAL PATIENT PRESENTED TO THERAPY IN SITTING IN CHAIR IN ACTIVITY ROOM WITH OTHER PATIENTS AND 2 RNs PRESENT. PATIENT WAS IDENTIFIED BY NAME AND ON WRISTBAND. PATIENT GIVES INFORMED CONSENT FOR TREATMENT. PATIENT PERFORMED SIT TO STAND OUT OF LOW CHAIR WITH CGA. PATIENT AMBULATED WITHOUT ASSISTIVE DEVICE WITH THERAPIST CGA ON HIS STRONG SIDE HE AMBULATED. PATIENT DID NOT HAVE ANY DIFFICULTY WITH BALANCE DURING GAIT. PATIENT DID HAVE A BM WHILE AMBULATING AND THIS UPPER EXTREMITY SURGEON ASSISTED PATIENT TO HIS RESTROOM ALONG WITH TAAMR SAMANO. TAMAR SAMANO ASSISTED PATIENT TO CHANGE HIS CLOTHING. PATIENT WAS STS MIN A X 1 UP OFF OF THE COMMODE. PATIENT AMBULATED 350' X 1 WITH NO ASSISTIVE DEVICE AND CGA ON STRONG SIDE OF PATIENT. PATIENT WAS LEFT IN ACTIVITY ROOM IN CHAIR WITH ONE RN PRESENT AND 2 OTHER PATIENTS. PATIENT WAS 1:1 WITH THIS UPPER EXTREMITY SURGEON FOR 24 MINUTES TOTAL. FUENTES BLAKE UPPER EXTREMITY SURGEON
[2019-12-18] MEDS ORDERED: MIRTAZAPINE15 M2 PO (18:21)
[2019-12-18] MEDS ORDERED: MEMANTINE HCL10 MG PO (18:21)
[2019-12-18] MEDS ORDERED: RIVASTIGMINE1 EAC2 T (18:21)
[2019-12-18] MEDS ORDERED: NATURE'S BLEND F1 MG PO (18:21)
[2019-12-18 20:00] VITALS: BP 152/65
--- NOTE | 2019-12-18 21:55 | NUR ---
P-CONFUSION, ISOLATIVE I-PROVIDED REDIRECTION WITH 1:1 THERAPEUTIC COMMUNICATION AND INTERVENTIONS. PRESENTED REALITY NEEDED. ENCOURAGED AND EDUCATED PATIENT ABOUT MEDICATION AND COMPLIANCE R-PATIENT MEDICATION COMPLIANT WITH ENCOURAGEMENT. PATIENT POVIDED SNACK AND FLUIDS AT HS. PATIENT HARD OF HEARING. PATIENT WITH WORD FINDING DIFFICULTIES AND IRRITABLE AT TIMES WHEN UNABLE SPEAK THE WORDS HE ATTEMPTING TO SAY. PATIENT SHOWERED AT HS. PATIENT AMBULATING ON UNIT WITH ABNORMAL BUT STEADY GAIT. PATIENT WITH NO HALLUCINATIONS OR DELUSIONS. PATIENT WITH NO SUICIDAL OR HOMICIDAL IDEATIONS. P-CONTINUE TO ENCOURAGE MEDICATION COMPLIANCE, CONTINUE TO PRESENT REALITY, ENCOURAGE GROUP THERAPY WHILE AWAKE
--- NOTE | 2019-12-19 06:01 | NUR ---
PATIENT SLEPT 8 HOURS OF UNINTERRUPTED SLEEP THROUGHOUT SHIFT. Q 15 MINUTE CHECKS MAINTAINED. 24 HR chart check completed.
--- NOTE | 2019-12-19 07:25 | NUR ---
PHYSICAL THERAPY Patient seen this am for therapy visit and was just awakening supine in bed upon therapist arrival. Patient identified by name / and reports no new c/o's at this time. Patient transfers supine to sit EOB with SBA and needed a few minutes static EOB sit to collect himself. Patient was pleasant this morning, transfering sit to stand, CGA, then ambulated without AD, ad domo in hallway, was initial CGA due to "wobbly" gait pattern, but was able to improve to SBA, 175'x 1. Patient demonstrated no LOB this session and returned to activity room chair at table awaiting breakfast. Patient remained under U staff Supervision and will continue per POC as tolerated, total treatment time 16 minutes. Benjamin Benitez, MOPHEAD TRIMMER AND WRAPPER
[2019-12-19 07:54] VITALS: BP 135/55
[2019-12-19] MEDS ORDERED: HYDROXYZINE HCL50 MG PO (08:06)
[2019-12-19] MEDS ORDERED: ZIPRASIDONE HCL80 M1 PO (08:14)
--- NOTE | 2019-12-19 09:00 | NUR ---
Treatment Plan meeting was held this a.m. with Dr. Cano via telephone, MALENA Smith RN, TRAVEL FREIGHT AND PASSENGER AGENT-S and Vascular Nurse. Plan for discharge today. Pt. will return home with his Son and Family. Mental Health Follow up scheduled with [facility] and Primary Care Follow up with Dr. Easley. Son will transport patient with a shrimp picker time 10:00 a.m.
--- NOTE | 2019-12-19 10:00 | NUR ---
PATIENT READY FOR DISCHARGE, SON DOWN IN LOBBY. ALL BELONGING GATHERED. PATIENT ASSISTED INTO WHEELCHAIR AND OFF UNIT WITH BELONGING AND DISCHARGE INSTRUCTION WITH NURSE TO PRIVATE VEHICLE.
--- NOTE | 2019-12-19 10:57 | NUR ---
Patient discharged today to his son Yaya García's home. Follow-up was scheduled with [facility] and with Dr Easley. While at [facility], pt's combative behaviors resolved. Pt remained pleasantly confused. Pt did not participate in programming due to his cognitive deficits.
--- NOTE | 2019-12-19 11:42 | NUR ---
Discharge Paperwork Faxed to Riki Melton and Dr. Cuadra.
--- NOTE | 2019-12-20 07:44 | NUR ---
OCCUPATIONAL THERAPY CO-SIGN I approve of the Occupational Therapy notes written above. MICKEY LOPEZ, OTR/L
--- NOTE | 2019-12-20 07:45 | NUR ---
PHYSICAL THERAPY CO-SIGN I approve of the Physical Therapy notes written above. Indiana Walsh PT
== END 2019-12-19 10:00 | disposition home or self-care (01) | DRG 885 ==
LOC: ED 12:42 → EDHOLD 17:00 → 3N 17:00
PROVIDERS: Emergency Medicine; Hospitalist; Registered Nurse; ADMIT Psychiatry & Neurology Psychiatry
DX: F33.3 Major depressive disorder, recurrent, severe with psychotic symptoms (principal); N17.0 Acute kidney failure with tubular necrosis; F23 Brief psychotic disorder; E87.1 Hypo-osmolality and hyponatremia; K50.919 Crohn's disease, unspecified, with unspecified complications; F63.81 Intermittent explosive disorder; G30.9 Alzheimer's disease, unspecified; F02.80 Dementia in other diseases classified elsewhere, unspecified severity, without behavioral disturbance, psychotic disturbance, mood disturbance, and anxiety; E11.69 Type 2 diabetes mellitus with other specified complication; E03.9 Hypothyroidism, unspecified; D64.9 Anemia, unspecified; E11.65 Type 2 diabetes mellitus with hyperglycemia; I12.9 Hypertensive chronic kidney disease with stage 1 through stage 4 chronic kidney disease, or unspecified chronic kidney disease; N18.3 Chronic kidney disease, stage 3 (moderate); E11.22 Type 2 diabetes mellitus with diabetic chronic kidney disease; Z03.818 Encounter for observation for suspected exposure to other biological agents ruled out; Z86.73 Personal history of transient ischemic attack (TIA), and cerebral infarction without residual deficits; I25.2 Old myocardial infarction; Z95.5 Presence of coronary angioplasty implant and graft; Z90.49 Acquired absence of other specified parts of digestive tract; Z87.891 Personal history of nicotine dependence; Z82.49 Family history of ischemic heart disease and other diseases of the circulatory system; Z83.3 Family history of diabetes mellitus; Z82.3 Family history of stroke; Z79.899 Other long term (current) drug therapy

== ENCOUNTER 2019-12-27 20:42 | Inpatient (IN) | payer OTHER ==
[~2019-12-27] VITALS: Ht 185.4 cm; Wt 65.5 kg
[~2019-12-27 20:42] MED LIST changes: +HYDROXYZINE HCL50 MG PO
[2019-12-27 20:46] VITALS: BP 143/58
[2019-12-27 21:19] LABS: BASO % 0.5 % (0.0-1.0); EOS # 0.2 10*3/uL (0.0-0.4); HEMATOCRIT 31.8 % (42.0-52.0); LYMPH # 1.8 10*3/uL (1.3-4.4); LYMPH % 21.3 % (27.0-41.0); MEAN CORPUSCULAR HGB 30.7 pg (27.0-31.0); MEAN PLATELET VOLUME 9.1 fl (9.6-12.3); MONO # 0.6 10*3/uL (0.1-1.0); MONO % 7.6 % (3.0-9.0); NEUT # 5.7 10*3/uL (2.3-7.9); NEUT % 68.1 % (47.0-73.0); PLATELET COUNT AUTOMATED 191 10*3/uL (130-400); RED BLOOD COUNT 3.42 10*6/uL (4.50-5.90); RED CELL DISTRI WIDTH 13.2 % (0-14.5); WHITE BLOOD COUNT 8.3 10*3/uL (4.8-10.8)
[2019-12-27 21:33] LABS: ALBUMIN 3.5 gm/dl (3.1-4.5); ALKALINE PHOSPHATASE 63 U/L (45-117); BUN 19 mg/dl (7-24); CHLORIDE 93 mmol/L (98-107); CREATININE 1.45 mg/dL (0.70-1.30); POTASSIUM 4.1 mmol/L (3.5-5.1); SGOT/AST 14 IU/L (3-35); SGPT/ALT 13 U/L (12-78); SODIUM 128 mmol/L (136-145); TOTAL PROTEIN 7.7 gm/dL (6.4-8.2)
[2019-12-27 21:41] LABS: ETHYL ALCOHOL < 3.0 mg/dl (<3)
[2019-12-27 21:42] LABS: ACETAMINOPHEN (TYLENOL) < 5.0 ug/ml (10-30)
[2019-12-27 21:49] LABS: CLARITY CLEAR (CLEAR); COLOR YELLOW (YELLOW)
[2019-12-27 21:50] LABS: BILIRUBIN NEGATIVE (NEGATIVE); BLOOD NEGATIVE (NEGATIVE); GLUCOSE 1+ (NEGATIVE); KETONE NEGATIVE (NEGATIVE); LEUKO ESTERASE TRACE (NEGATIVE); NITRITE NEGATIVE (NEGATIVE); UROBILINOGEN 0.2 E.U./dl (0.2-1.0)
[2019-12-27 21:54] LABS: BACTERIA 1+; EPITHELIAL CELLS 0-2; RBC 0-2 rbc/hpf (0-2)
[2019-12-27 21:56] LABS: URINE AMPHETAMINES < 1000 (1000ng/ml); URINE BARBITURATES < 200 (200ng/ml); URINE BENZODIAZEPINES < 200 (200ng/ml); URINE CANNABINOIDS (THC) < 50 (50ng/ml); URINE COCAINE < 300 (300ng/ml); URINE METHADONE < 300 (300ng/ml); URINE OPIATES < 300 (300ng/ml)
[2019-12-27 21:59] LABS: URINE PHENCYCLIDINE < 25 (25ng/ml)
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
--- NOTE | 2019-12-27 22:17 | NUR ---
telephone call to [facility] and made the referral, he just left the unit, spoke with doc and she is going to get the information and then she will call dr carlson, she said that he may be reluctant because the family was very non compliant last admission.
[2019-12-27 23:30] VITALS: BP 136/61
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
--- NOTE | 2019-12-28 00:20 | NUR ---
RESIDENT HERE TO SEE CLIENT. SEE HIS REPORT
--- NOTE | 2019-12-28 06:08 | NUR ---
SLEPT WELL SINCE 0045AM. AWAKENED TO VOID AND FOR LAB DRAW. PLEASENT AND INTERACTIVE. 24 HR chart check completed.
--- NOTE | 2019-12-28 06:53 | NUR ---
REFUSED BSG AND INSULIN. PO MEDICATION COMPLIANT
[2019-12-28 06:54] LABS: BASO % 0.5 % (0.0-1.0); EOS # 0.2 10*3/uL (0.0-0.4); EOS % 2.9 % (1.0-4.0); HEMATOCRIT 32.3 % (42.0-52.0); LYMPH % 30.2 % (27.0-41.0); MEAN CELL VOLUME 94.4 fl (80.0-94.0); MEAN CORPUSCULAR HGB 31.3 pg (27.0-31.0); MEAN CORPUSCULAR HGB CONC 33.1 g/dl (33.0-37.0); MEAN PLATELET VOLUME 9.3 fl (9.6-12.3); MONO # 0.6 10*3/uL (0.1-1.0); MONO % 9.2 % (3.0-9.0); NEUT # 3.7 10*3/uL (2.3-7.9); NEUT % 56.6 % (47.0-73.0); PLATELET COUNT AUTOMATED 171 10*3/uL (130-400); RED BLOOD COUNT 3.42 10*6/uL (4.50-5.90); RED CELL DISTRI WIDTH 13.5 % (0-14.5); WHITE BLOOD COUNT 6.5 10*3/uL (4.8-10.8)
[2019-12-28 06:56] LABS: ALBUMIN 3.3 gm/dl (3.1-4.5); ALKALINE PHOSPHATASE 62 U/L (45-117); BUN 16 mg/dl (7-24); CHLORIDE 104 mmol/L (98-107); CHOLESTEROL 166 mg/dL (<200); POTASSIUM 3.6 mmol/L (3.5-5.1); SGOT/AST 14 IU/L (3-35); SGPT/ALT 11 U/L (12-78); SODIUM 137 mmol/L (136-145); TOTAL PROTEIN 7.4 gm/dL (6.4-8.2); TRIGLYCERIDES 155 mg/dl (<150); VLDL CHOLESTEROL 31 mg/dL (6-40)
[2019-12-28 07:04] LABS: HDL CHOLESTEROL 41 mg/dl (40-60); LDL CHOLESTEROL 94 mg/dL (9-159)
--- NOTE | 2019-12-28 07:08 | NUR ---
STATES HE WAS AWAKE ALOT OF THE NIGHT WITH DIARRHEA, WHEN I REDIRECTED HIM THAT WE CHECKED ON HIM EVERY 15 MINS HE SAID OH I MEAN BEFORE I TOOK THE KLONOPIN. CURRENTLY UP IN DININGROOM
--- NOTE | 2019-12-28 07:12 | NUR ---
AGREED TO AM LABS BUT REFUSED BSG OR INSLIN COVERAGE. ,
[2019-12-28 07:30] LABS: VITAMIN D, 25-HYDROXY 33.4 ng/mL (30-100)
[2019-12-28 07:44] VITALS: BP 169/64
--- NOTE | 2019-12-28 09:00 | NUR ---
Treatment Plan meeting was held this a.m. with Dr. Cano via telephone, MALENA Gonzalez RN, COPPER PLATE LITHOGRAPHER-S and Electrical Manufacturing Technician in attendance. Plan for discharge Next Week. Dr. Cano is requesting [facility] submission and Placement.
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
--- NOTE | 2019-12-28 11:14 | NUR ---
DR. FRIAS ON UNIT TO ASSESS PATIENT.
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
--- NOTE | 2019-12-28 11:51 | NUR ---
Left a voicemail message for pt's son Yaya García requesting a return call to discuss discharge needs of pt.
--- NOTE | 2019-12-28 13:00 | NUR ---
Spoke to Polo at [facility] regarding inpatient mental health authorization. IP 4 days rahat, LCD 12/29 with a NRD 12/30. Ref # [id number]
--- NOTE | 2019-12-28 14:51 | NUR ---
Nutritional Support Services Note; Pt has a scabbed over skin tear. Ht.6' Wt,144# IBW 168-188. Appetite was good for meals today. Encourage intake. Recommend Glucerna OS po TID with meals. Will follow as needed. Trinity Herman Rdn Ld
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
--- NOTE | 2019-12-28 16:09 | NUR ---
PT SITTING IN DINING ROOM. C/O SORE THROAT ON RIGHT SIDE. OFFERED TO CALL DR TO GET THROAT LOZENGE. PT REFUSED. STATED HE DIDN'T GIVE A DAM & THAT HE "HOPES IT KILLS ME". IRRITABLE OVERTONES. VOICED HOPELESS/HELPLESS OUTLOOK. SAD & DEPRESSED AFFECT. VOICES WISH & STATING HE HOPES HE DIES"
--- NOTE | 2019-12-28 17:17 | NUR ---
24 HR chart check completed.
--- NOTE | 2019-12-28 17:37 | NUR ---
PT AGAIN C/O SORE THROAT PAIN ON RIGHT SIDE. AGAIN OFFERED TO CALL TO GET THROAT LOZENGE. PT AGREED AT THIS TIME. DR ALEMAN NOTIFIED WITH ORDERS RECEIVED FOR CEPACOL LOZENGE PRN.
[2019-12-28 19:56] VITALS: BP 148/69
--- NOTE | 2019-12-28 20:18 | NUR ---
PARTIALLY INCONTENT OF RUNNY STOOL. CLEANED UP AND PLACED IN BED. C/O MILD UPSET STOMACH HE SAYS FROM SEEING STOOL ALL OVER. GARBAGE CAN GIVEN AND ENCOURAGED HIM TO CALL OUT FOR ANYTHING. WILL CONTINUE TO MONITOR Q 15 MINS AND PRN
--- NOTE | 2019-12-29 03:05 | NUR ---
24 HR chart check completed.
--- NOTE | 2019-12-29 06:03 | NUR ---
SLEPT WELL PAST 2130PM
--- NOTE | 2019-12-29 07:41 | NUR ---
Patient resting quietly with no c/o discomfort. Respirations easy and regular. Vital signs stable. No overt distress. JUSTYN GONZALEZ
[2019-12-29 07:44] VITALS: BP 136/50
--- NOTE | 2019-12-29 09:24 | NUR ---
PATIENT COMPLAINING OF HAVING A HEAD ACHE. PRN TYLENOL 650MG PO GIVEN AT THIS TIME.
--- NOTE | 2019-12-29 10:54 | NUR ---
AND ON UNIT TO SEE PT AT THIS TIME. MADE AWARE PT C/O HEADACHE, PAIN UNRELIEVED BY TYLENOL GIVEN THIS AM. REVIEWED PT'S CREATININE VALUES. RECIEVED VERBAL ORDER FROM FOR IBUPROFEN 600MG PO X1 NOW. READ BACK AND VERIFIED.
--- NOTE | 2019-12-29 12:50 | NUR ---
PT GIVEN IBUPROFEN 600MG PO X1 AT THIS TIME PER PHYSICIANS ORDERS. WILL MONITOR FOR EFFECT.
--- NOTE | 2019-12-29 13:35 | NUR ---
PT ATE 100% OF LUNCH. REQUESTED TO LAY DOWN. STATES HIS HEADACHE "DOESN'T HURT BAD". MOTRIN PROVIDING SOME RELIEF AT THIS TIME. PT REQUESTED TO LAY DOWN. ASSISTED TO BED. NO DISTRESS NOTED.
--- NOTE | 2019-12-29 13:56 | NUR ---
NO ADVERSE MOODS OR BEHAVIORS THIS SHIFT. PT IS ALERT AND ORIENTED X1. PLEASANTLY CONFUSED. EASILY REORIENTED. MEMORY GAPS NOTED. RESPS EASY AND EVEN ON ROOM AIR. MOOD IS STABLE WITH APPROPRIATE AFFECT. SPEECH IS MUMBLED PER PT BASELINE. COHERENT. PT IS ABLE TO MAKE NEEDS KNOWN WITHOUT DIFFICULTY. PT DENIES SI/HI, INTENT OR PLAN. PT DENIES HALLUCINATIONS, NO RESPONSE TO INTERNAL STIMULI NOTED. NO PARANOIA OR DELUSIONS NOTED. PT IS CALM, PLEASANT AND COOPERATIVE. NO AGGRESSIVE BEHAVIORS DISPLAYED. COMPLIANT WITH HANDS ON CARE. FEEDS SELF, REQUIRES SET UP ASSISTANCE FOR MEALS D/T RIGHT SIDED WEAKNESS. DISPLAYS GOOD APPETITE WITH ADEQUATE FLUID INTAKES. STAND BY ASSIST FOR AMBULATION AND TRANSFERS PROVIDED D/T ALTERED GAIT PATTERN D/T RIGHT SIDED WEAKNESS. NO DISTRESS NOTED. PLAN TO CONTINUE CURRENT TREATMENT.
--- NOTE | 2019-12-29 15:34 | NUR ---
Shift chart check completed.
--- NOTE | 2019-12-29 18:17 | NUR ---
INCREASING RESTLESSNESS NOTED THIS EVENING. PT UP TO DESK MULITPLE TIMES ASKING "WHEN CAN I GO HOME?" REDIRECTION PROVIDED. PT ASKS "IS MY DOCTOR GOING TO RELEASE ME TODAY?" ADVISED PT HE WAS STAYING A FEW MORE DAYS. PT STATES "OH MAN. CAN I GO LAY DOWN?" DIRECTED PT TO HIS ROOM. PT CALM AND COOPERATIVE.
[2019-12-29 19:26] VITALS: BP 125/57
--- NOTE | 2019-12-29 19:45 | NUR ---
HOPELESS/HELPLESS. CAME TO DESK AND WANTS TO KNOW WHEN HE CAN GO HOME. DIFFICULTY TO REDIRECT HIM TO PLACE AND SITUATION. AFTER REFUSING SNACK HE DID DRINK ENSURE AND EAT CRACKERS AND PEANUT BUTTER SET OUT FOR HIM. THEN WENT TO BED.. PM CARE COMPLETED APPROX 2000PM. DENTURES SOAKING
--- NOTE | 2019-12-29 21:45 | NUR ---
TO DESK AFTER HAVING BM. ASSISTED TO ROOM AND POSITION OF COMFORT
--- NOTE | 2019-12-29 21:45 | NUR ---
TO DESK AFTER HAVING BM. ASSISTED TO ROOM AND POSITION OF COMFORT
--- NOTE | 2019-12-30 05:08 | NUR ---
24 HR chart check completed.
--- NOTE | 2019-12-30 05:09 | NUR ---
24 HR chart check completed.
--- NOTE | 2019-12-30 05:50 | NUR ---
INCONTINENT OF LARGE AMOUNT LOOSE FOUL SMELLING STOOL. COMPLETE SHOWER GIVEN. CLIENT ABLE TO ASSIST SOMEWHAT. TOILET AND BED CLEANED. BEDDING CHANGED. CLIENT WAKE AND DRESSED FOR THE DAY. ORAL CARE COMPLETED. WATCHING TV AT THIS TIME
[2019-12-30 07:41] VITALS: BP 149/56
--- NOTE | 2019-12-30 07:45 | NUR ---
Patient eating breakfast in dining room with peers. Respirations easy and regular. Vital signs stable. No overt distress. JUSTYN GONZALEZ
--- NOTE | 2019-12-30 11:28 | NUR ---
DR. FRIAS ON UNIT TO ASSESS PATIENT.
--- NOTE | 2019-12-30 15:06 | NUR ---
MYLICON 80MG CHEWABLE ONE TAB PO GIVEN AT THIS TIME PER PRN ORDERS FOR GAS. WILL MONITOR FOR EFFECT.
--- NOTE | 2019-12-30 15:53 | NUR ---
MYLICON INEFFECTIVE. PT NOTED WALKING AROUND UNIT HOLDING ABDOMEN. COMING TO NURSE'S STATION HOLDING ABDOMEN. WORD FINDING DIFFICULTIES NOTED BUT PT ABLE TO CONVEY THAT HE IS STILL EXPERIENCING ABDOMINAL PAIN. PT NOTED WHINCING AT TIMES. +BSX4. NOTIFIED VIA PHONE. MADE AWARE OF THE ABOVE. MADE AWARE OF PT'S HX OF COLITIS, CHRONS DISEASE, ILEOSTOMY WITH REVERSAL AND CHRONIC ABDOMINAL PAIN. MADE AWARE PT HAD BM THIS AM. TO UNIT AND ASSESSED. STATES HE WILL ENTER NEW ORDERS. REQUESTS RN MONITOR BMS FOR VISUAL S/S BLEEDING. NO SAMPLE FOR OCCULT NEEDED AT THIS TIME. WITNESSED BY 2ND RN.
--- NOTE | 2019-12-30 17:30 | NUR ---
NOTIFIED OF KUB RESULTS. PT MAY USE HEATING PAD. NO FURTHER ORDERS RECIEVED.
--- NOTE | 2019-12-30 17:56 | NUR ---
OFFERED PT HEATING PAD. PT DECLINED AT THIS TIME.
--- NOTE | 2019-12-30 18:36 | NUR ---
PATIENT IS ALERT TO PERSON WITH CONFUSION. LONG/SHORT TERM MEMORY DEFICITS. DENIES HI/SI OR PAIN, NO RESPONSE TO INTERNAL STIMULI. NO VOICED STATEMENT OF HI/SI. PATIENT GRIMACING IN PAIN TO ABDOMEN. PATIENT ASSESSED BY NURSES AND DOCTORS. SEE NEW ORDERS. MEDICATION COMPLAINT. Q 15 MINUTE STAFETY CHECKS. ONE PERSON ASSIST WITH ACTIVITIES OF DAILY LIVING, CONTINENT OF BOWEL AND BLADDER. SET UP FOR MEALS, INTAKES ARE GOOD BUT REFUSED DINNER. WANDERING ON UNIT BUT IS REDIRECTABLE EASILY. CONTINUE TO FOR AGGRESSION. PROVIDE ONE ON ONE AND REDIRECTIONS NEEDED.
[2019-12-30 20:00] VITALS: BP 165/65
--- NOTE | 2019-12-30 22:24 | NUR ---
24 HR chart check completed.
--- NOTE | 2019-12-30 23:58 | NUR ---
PATIENT IS ALERT AND ORIENTED TO SELF ONLY. HAS BEEN PLEASANT AND COOPERATIVE WITH CARE AND MED COMPLIANT. HAS EXPRESSIVE APHASIA BUT IS ABLE TO MAKE NEEDS KNOWN. NO S/I OR H/I. NO DELUSIONS OR HALLUCINATIONS. HAS LONG AND SHORT TERM MEMORY DEFICIT. ABLE TO AMBULATE ON UNIT INDEPENDENTLY. WAS INC OF STOOL BUT CONT OF URINE. CONSUMED 100% OF HS SNACK. NO AGGRESSION NOTED. CONTINUE WITH 15 MINUTE SAFETY CHECKS. 1:1 AND REDIRECTION NEEDED.
--- NOTE | 2019-12-31 02:45 | NUR ---
PT HAD MODERATE EMESIS OF BROWN LIQUID WITH UNDIGESTED FOOD. GIVEN MAALOX 30CC'S. C/O ABD HURTING. NONDISTENDED BUT TENDER TO TOUCH. BS REMAIN HYPERACTIVE. WILL CONTINUE TO MONITOR.
--- NOTE | 2019-12-31 05:33 | NUR ---
patient had second emesis at 0500. small amount of brown liquid. holding abd. non distended but tender to touch. BS+ x4. COLOR PALE. RESP EASY. vs 97.5-102-18: 171/76: 99% ON R/A. HOB ELEVATED. ALICE SRIDEVI OFFERED BUT REFUSED. WILL CONTINUE TO MONITOR.
--- NOTE | 2019-12-31 05:52 | NUR ---
DR. CHRISTENSEN CALLED AND MADE AWARE OF PATIENT'S EMESIS AND HX. NEW ORDERS RECIEVED FOR ZOFRAN IM AND NORCO 5 MG X1 DOSE.
--- NOTE | 2019-12-31 06:52 | NUR ---
PATIENT HAD ANOTHER SMALL EMESIS. SLEPT OVER 7 HOURS LAST NIGHT. INTERRUPTED BY EMESIS.
--- NOTE | 2019-12-31 07:08 | NUR ---
6AM MEDS HELD DUE TO EMESIS. DR. CHRISTENSEN AWARE. HOB ELEVATED. BLOOD GLUCOSE WAS 226 AT 0600. COVERAGE HELD.
[2019-12-31 08:46] LABS: HEMATOCRIT 39.1 % (42.0-52.0); MEAN CELL VOLUME 92.4 fl (80.0-94.0); MEAN CORPUSCULAR HGB 30.7 pg (27.0-31.0); MEAN CORPUSCULAR HGB CONC 33.2 g/dl (33.0-37.0); MEAN PLATELET VOLUME 9.2 fl (9.6-12.3); PLATELET COUNT AUTOMATED 216 10*3/uL (130-400); RED BLOOD COUNT 4.23 10*6/uL (4.50-5.90); RED CELL DISTRI WIDTH 13.7 % (0-14.5); WHITE BLOOD COUNT 16.5 10*3/uL (4.8-10.8)
[2019-12-31 09:00] VITALS: BP 158/82
--- NOTE | 2019-12-31 09:00 | NUR ---
Treatment Plan meeting was held this a.m. with Dr. Cano, MALENA Smith, RN, AT and [facility] Supervisor. Plan for discharge is unclear at this time. Pt. Son has not returned calls and Did not call over the weekend. It was reported last week that Pt. was for Placement. Pt. had change in condition over night and may require discharge to Hospital. Will reach out to Son to Discuss discharge Plans.
[2019-12-31 09:09] LABS: BASOPHILS 1 % (0-1); PLATELET SUFFICIENCY NORMAL (NORMAL); TOTAL CELLS COUNTED 100 #CELLS
[2019-12-31 09:11] LABS: ALBUMIN 3.8 gm/dl (3.1-4.5); CREATININE 1.52 mg/dL (0.70-1.30); POTASSIUM 5.5 mmol/L (3.5-5.1)
--- NOTE | 2019-12-31 09:27 | NUR ---
PHYSICAL THERAPY PT evaluation attempted. Per Nurse Nelson, patient is not appropriate for skilled PT services at this time due to emesis, weakness, and abnormal labs. Will attempt PT evaluation again at a later date. Thank you. Lilia Moore,PT,DPT
--- NOTE | 2019-12-31 09:27 | NUR ---
Occupational Therapy evaluation attempted. Per NurseLeslie, patient is not appropriate at this time for an occupational therapy evaluation due to emesis, weakness and abnormal labs. Will follow up at a later date/time. Thank you, Myrna Hayes OTR/L
--- NOTE | 2019-12-31 09:40 | NUR ---
DR. ALEMAN NOTIFIED OF PATIENT'S ABNORMAL LAB AND UPDATED ON CONDITION.
--- NOTE | 2019-12-31 09:45 | NUR ---
ON UNIT TO SEE ASSESS PT AT THIS TIME. STATES HE WILL ORDER ABDOMINAL CT, EKG, ZOFRAN. THEN WILL REASESS FOR POSSIBLE DISCHARGE TO MEDICAL UNIT.
--- NOTE | 2019-12-31 09:50 | NUR ---
PHONES UNIT, STATES TO HOLD ZOFRAN UNTIL AFTER EKG IS DONE. STATES TO CALL HIM WITH EKG RESULT WHEN COMPLETED.
--- NOTE | 2019-12-31 10:00 | NUR ---
AWARE OF POSITIVE HEMOCCULT EMESIS. ORDER RECIEVED TO DISCHARGE PT TO MEDICAL FLOOR WITH DX: ABDOMINAL PAIN, MONITORED BED, ADMITTING PHYSICIAN IS . AWARE. STATES OK TO PUT IN DISCHARGE ORDER AND CONTINUE PSYCH MEDS CURRENTLY PRESCRIBED. NURSING INSTRUMENT ADJUSTER NOTIFIED AND WILL CALL BACK WITH BED ASSIGNMENT. CHINCHILLA MACHINE OPERATOR AWARE. FOREIGN SERVICE TEACHER AWARE AND WILL NOTIFY PT'S FAMILY.
[2019-12-31] MEDS ORDERED: VISTARIL50 MG PO (10:14)
--- NOTE | 2019-12-31 10:22 | NUR ---
MADE AWARE DISCHARGE ORDER IS IN AND MEDICATIONS RECONCILED FOR DISCHARGE FROM A PSYCH STANDPOINT. MADE AWARE OF EKG RESULTS: RATE 85, SINUS RHYTHM, MULTIPLE VENTRICULAR PREMATURE COMPLEXES. MADE AWARE QTC IS 467. STATES OK TO GIVE ZOFRAN. MADE AWARE ORDERS FOR CONTRAST AND CT WILL NEED REORDERED ONCE PT IS MOVED TO MEDICAL FLOOR.
--- NOTE | 2019-12-31 10:26 | NUR ---
Left Message for Pt. Son who is also his POA Yaya COLON to notify of change in Condition and Discharge to Hospital. No other numbers available for Yaya REDD Notified Radha Gastelum from Adult Protective Services of discharge and that Son has not called the Unit over the weekend.
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
--- NOTE | 2019-12-31 10:47 | NUR ---
PER OK TO CONTINUE MEDICAL MEDS EXCEPT BLOOD THINNERS. PLAVIX PUT ON HOLD PER ORDERS. WTINESSED BY 2ND RN [email or web address].
--- NOTE | 2019-12-31 13:00 | NUR ---
Spoke to Imelda at [facility]. No further inpatient mental health days needed as patient is discharging to medical. All days approved. Ref # [id number]. Faxed discharge clinical to [phone].
--- NOTE | 2019-12-31 14:16 | NUR ---
Faxed discharge instructions and summary to [facility] at [phone]
== END 2019-12-31 10:52 | disposition short-term general hospital (02) | DRG 883 ==
LOC: ED 20:42 → 3N 22:55
PROVIDERS: Counselor Professional; Emergency Medicine; ADMIT Psychiatry & Neurology Psychiatry; ATTEND Psychiatry & Neurology Psychiatry
DX: F63.81 Intermittent explosive disorder (principal); F23 Brief psychotic disorder; E87.1 Hypo-osmolality and hyponatremia; F02.81 Dementia in other diseases classified elsewhere, unspecified severity, with behavioral disturbance; N18.3 Chronic kidney disease, stage 3 (moderate); G30.9 Alzheimer's disease, unspecified; F32.9 Major depressive disorder, single episode, unspecified; D64.9 Anemia, unspecified; E87.8 Other disorders of electrolyte and fluid balance, not elsewhere classified; E03.9 Hypothyroidism, unspecified; I12.9 Hypertensive chronic kidney disease with stage 1 through stage 4 chronic kidney disease, or unspecified chronic kidney disease; E11.22 Type 2 diabetes mellitus with diabetic chronic kidney disease; Z20.828 Contact with and (suspected) exposure to other viral communicable diseases; R82.71 Bacteriuria; K52.9 Noninfective gastroenteritis and colitis, unspecified; E86.0 Dehydration; R81 Glycosuria; Z83.3 Family history of diabetes mellitus; Z82.49 Family history of ischemic heart disease and other diseases of the circulatory system; Z82.3 Family history of stroke; Z79.4 Long term (current) use of insulin

== ENCOUNTER 2019-12-31 10:23 | Inpatient (IN) | payer OTHER ==
[~2019-12-31] VITALS: Ht 182.9 cm; Wt 58.1 kg
[~2019-12-31 10:23] MED LIST changes: +VISTARIL50 MG PO
--- NOTE | 2019-12-31 10:56 | NUR ---
GROMMET MAN SPOKE TO PARTH BUSH-PRAVEEN. PARTH REQUESTED A COPY OF DPOA-HC. GROMMET MAN LOCATED [facility]PO[facility] IN [employer] AND FAXED PARTH A COPY.
[2019-12-31 11:00] VITALS: BP 168/80
--- NOTE | 2019-12-31 11:00 | NUR ---
A 79, admitted to , under the services of MICHELLE Hua DO with a diagnosis of ABDOMINAL PAIN. Chief complaint is ABDOMINAL PAIN, NAUSEA, VOMITTING. Patient arrived via wheel chair from [facility] Monitor applied. Initial assessment completed. Vital signs taken and recorded. MICHELLE HUA DO notified of admission to the unit. Orders received. See assessment for past medical history, medications and allergies. Patient and/or family oriented to unit. [facility] ROOM 421 visitation policy reviewed. Clothing/patient valuable form completed. JACKIE SPICER
[2019-12-31 12:00] VITALS: BP 168/80
[2019-12-31 16:00] VITALS: BP 198/86
--- NOTE | 2019-12-31 16:00 | NUR ---
UNABLE TO DO ORTHOSTATIC BPS AT THIS TIME DUE TO PT VOMITTING.
--- NOTE | 2019-12-31 17:49 | NUR ---
PT MEDICATED WITH PRN ZOFRAN FOR 1 EPISODE OF EMESIS. WILL MONITOR.
[2019-12-31 18:10] VITALS: BP 162/80
[2019-12-31 18:44] LABS: CREATININE 1.86 mg/dL (0.70-1.30); POTASSIUM 4.7 mmol/L (3.5-5.1)
[2019-12-31 20:00] VITALS: BP 156/54
--- NOTE | 2019-12-31 20:14 | NUR ---
24 HR chart check completed.
[2020-01-01] VITALS (9 sets, daily range): BP systolic 116–144; BP diastolic 45–89
--- NOTE | 2020-01-01 01:30 | NUR ---
DR ORTA CONTACTED AND INFORMED OF CRITICAL LACTIC. ORDERS RECEIVED TO CONTINUE IVF
[2020-01-01 05:47] LABS: ALBUMIN 2.9 gm/dl (3.1-4.5); CREATININE 1.81 mg/dL (0.70-1.30); POTASSIUM 4.8 mmol/L (3.5-5.1)
--- NOTE | 2020-01-01 06:00 | NUR ---
SLEPT THROUGHOUT NIGHT WITH NO DISTRESS NOTED. RESPIRATIONS EASY. IV FLUIDS MAINTAINED. CALL LIGHT WITHIN REACH. NO VOICED COMPLAINTS THIS SHIFT. NPO STATUS MAINTAINED FOR TESTING
[2020-01-01 07:38] LABS: TOTAL CELLS COUNTED 100 #CELLS
[2020-01-01 07:40] LABS: DOHLE BODIES FEW; POLYCHROMASIA SLIGHT; VACUOLATION OF NEUTROPHILS SLIGHT
--- NOTE | 2020-01-01 07:50 | NUR ---
PHYSICAL THERAPY Pt admitted from home with abdominal pain with GI bleed please consult PT if pt has decline in functional status below baseline, thank you. Indiana Walsh PT
[2020-01-01 08:20] LABS: HEMATOCRIT 32.1 % (42.0-52.0); MEAN CORPUSCULAR HGB CONC 32.4 g/dl (33.0-37.0); MEAN PLATELET VOLUME 9.6 fl (9.6-12.3); RED BLOOD COUNT 3.35 10*6/uL (4.50-5.90); RED CELL DISTRI WIDTH 13.8 % (0-14.5); WHITE BLOOD COUNT 9.1 10*3/uL (4.8-10.8)
[2020-01-01 08:27] LABS: MEAN CELL VOLUME 95.8 fl (80.0-94.0); PLATELET COUNT AUTOMATED 166 10*3/uL (130-400)
[2020-01-01 08:44] LABS: BURR CELLS FEW; PLATELET SUFFICIENCY NORMAL (NORMAL); TOXIC GRANULATION SLIGHT
--- NOTE | 2020-01-01 08:48 | NUR ---
APS, Radha faye called and asked about patient. Informed her patient is on medical floor at this time and last note from [facility] stating son/HPOA stating he wants to take patient home upon discharge.
--- NOTE | 2020-01-01 09:52 | NUR ---
Patient refusing skin assessment at this time. Desiree DYSON caring for patient made aware.
--- NOTE | 2020-01-01 10:08 | NUR ---
Spoke with Dr. Aris wallising wound care orders. Continued orders from U stay 12/28/19.
--- NOTE | 2020-01-01 10:55 | NUR ---
Referral faxed to [facility] including all nurses, SW, casemanagement notes for review of behaviors. Waiting on new PT/OT evals and notes. Covid was negative on BHU. Waiting on review.
--- NOTE | 2020-01-01 11:01 | NUR ---
OT NOTE Occupational therapy order received and chart reviewed. Upon arrival, patient was out of the room for an EGD. Will check back at a later date for completion of an OT evaluation. Thank you. June Bello, OTR/L
--- NOTE | 2020-01-01 11:15 | NUR ---
PHYSICAL THERAPY Attempted to see pt for evaluation not available at this time as out of room for EGD will follow. Indiana Walsh PT
--- NOTE | 2020-01-01 11:32 | NUR ---
Radha Gastelum from [facility] called and stating she spoke with the patients son, Mary García and he requested patient go to a facility but only for a short skilled stay. Due to [employer] insurance and behaviors, referral was faxed to niesha. Waiting on review.
--- NOTE | 2020-01-01 13:45 | NUR ---
I SPOKE TO THE PATIENT REGARDING THE NG TUBE AND ITS BENEFITS AND HE STATED "NO, THAT WILL MAKE ME SICK." DR. CARBONE INFORMED. HE ASKED THAT I CALL THE PATIENTS SON FOR CONSENT.
--- NOTE | 2020-01-01 13:56 | NUR ---
THIS NURSE SPOKE WITH THE PATIENT'S SON WHO STATED HIS DAD WOULD JUST "RIP IT OUT" AND I WOULD HAVE TO TIE HIM DOWN BUT "I HAD HIS PERMISSION TO DO WHATEVER I NEEDED TO DO" REGARDING NG TUBE PLACEMENT.
--- NOTE | 2020-01-01 13:58 | NUR ---
THIS NURSE INFORMED DR. ALEMAN OF NG TUBE PLACEMENT ISSUE. I ASKED IF PATIENT WAS COMPETANT TO MAKE HIS OWN DECISIONS AND IF RESTRAINT WAS AN OPTION. DR. ALEMAN STATED HE WOULD SPEAK TO DR. STINSON AND RETURN MY CALL.
--- NOTE | 2020-01-01 14:01 | NUR ---
SPOKE WITH DR. ALEMAN AGAIN AND HE STATED HE WILL ORDER A COMPETANCY EVALUATION TO BE DONE BY DR. العلي PRIOR TO NG PLACEMENT.
--- NOTE | 2020-01-01 14:04 | NUR ---
DR. العلي'S OFFICE NOTIFIED OF CONSULT.
--- NOTE | 2020-01-01 14:05 | NUR ---
Occupational Therapy evaluation completed on four with full evaluation to follow. Recommend occupational therapy per plan of care and SNF upon discharge. If refused, home with with 29/11 supervision assist. Thank you for this referral. June Bello OTR/L
--- NOTE | 2020-01-01 14:24 | NUR ---
Contacted Roz from [place] regarding referral. she stated the DON is questioning the medication Geodon because their facility doesn't typcally give that medication. She was told to take the referral up to corporate for their decision. Waiting for review/acceptance.
--- NOTE | 2020-01-01 15:14 | NUR ---
PHYSICAL THERAPY Physical Therapy evaluation completed on 4th floor with full evaluation to follow. Recommend physical therapy per plan of care and SNF upon discharge. Thank you for this referral. Luca Jain SPT Indiana Walsh PT
--- NOTE | 2020-01-01 15:51 | NUR ---
PT C/O RIGHT SIDED CHEST PAIN AT THIS TIME THAT HE DESCRIBES A "BITE." DR. ALEMAN NOTIFIED.
--- NOTE | 2020-01-01 17:00 | NUR ---
PT BECOMING INCREASINGLY AGITATED AND INSISTENT UPON LEAVING. RESTRAINTS INITIATED AT THIS TIME PER ORDER.
--- NOTE | 2020-01-01 17:18 | NUR ---
PT MEDICATED WITH PRN IV ATIVAN AT THIS TIME FOR INCREASED AGITATION. NG TUBE TO BE PLACED ONCE PATIENT IS LESS AGITATED.
--- NOTE | 2020-01-01 17:28 | NUR ---
PT CONTINUES TO KICK AT AND THREATEN STAFF AT THIS TIME.
--- NOTE | 2020-01-01 17:48 | NUR ---
IV ATIVAN UNEFFECTIVE. DR. ALEMAN NOTIFIED. PT KICKING AND THREATENING STAFF.
--- NOTE | 2020-01-01 18:10 | NUR ---
ONE TIME IM GEODON GIVEN AT THIS TIME. WILL MONITOR. PT AGITATED AND KICKING LEGS AT THIS TIME. SOFT WRIST RESTRAINTS INTACT.
--- NOTE | 2020-01-01 18:52 | NUR ---
JAK GARCIADON EFFECTIVE, NG TUBE SUCCESSFULLY PLACED AT THIS TIME. AUSCULTATION TO VERIFY PLACEMENT COMPLETE. WILL CONTINUE TO MONITOR.
--- NOTE | 2020-01-01 19:20 | NUR ---
DR. ALEMAN INFORMED THAT PATIENT'S PINK SLIP WILL AT 2230 TODAY 01/01/2020.
--- NOTE | 2020-01-01 19:34 | NUR ---
24 HR chart check completed.
--- NOTE | 2020-01-01 20:00 | NUR ---
RESTLESS. PATIENT SLOUCHING DOWN IN BED. ATTEMPTING TO PULL AT NG. SOFT WRIST RESTRAINTS REMOVED, ROM COMPLETED. PATIENT REPOSITIONED IN BED AND POSTIONED FOR COMFORT. RESTRAINTS REAPPLIED. IV FLUIDS MAINTAINED
--- NOTE | 2020-01-01 20:30 | NUR ---
BED ALARM RINGING. PATIENT AGAIN SLOUCHED DOWN IN BED. BRIEF REMOVED. NG INTACT. PATIENT REPOSITIONED. BED ALARM MAINTAINED FOR SAFETY
--- NOTE | 2020-01-01 21:30 | NUR ---
PATIENT REPEATEDLY SLIDING DOWN IN BED, ATTEMPTED TO PULL AT NG TUBE. PATIENT UNCOOPERATIVE AND VERBALLY AGRRESSIVE WITH STAFF. ATTEMPTED TO CALM PATIENT WITHOUT SUCCESS. PATIENT REPEATEDLY SAYING "TAKE THIS FING THING (NG) OUT".
--- NOTE | 2020-01-01 21:45 | NUR ---
CXR ORDER FOR PLACEMENT OF NG
--- NOTE | 2020-01-01 22:50 | NUR ---
PATIENT PULLED NG OUT. AGITATED, REFUSING TO ALLOW NG TO BE RE-INSERTED. BRIEF ALSO REMOVED AND PATIENT INCONTINENT OF LARGE AMOUNT OF SOFT GREEN STOOL. PATIENT AND LINENS CHANGED. BED ALARM REAPPLIED FOR SAFETY
--- NOTE | 2020-01-01 23:30 | NUR ---
PATIENT NOW RESTING QUIETLY. HYPO BOWEL SOUNDS. DENIES N/V. IV FLUIDS MAINTAINED. CALL LIGHT WITHIN REACH. BED ALARM IN PLACE FOR SAFETY
[2020-01-02] VITALS: BP 164/70
--- NOTE | 2020-01-02 | NUR ---
REMAINS AWAKE, LESS RESTLESS. RESPIRATIONS EASY. VSS. CONTINUES TO REFUSE TO ALLOW NG RE-INSERTION AND BECOMES AGITATED WHEN MENTIONING. CALL LIGHT WITHIN REACH. BED ALARM MAINTAINED FOR SAFETY
--- NOTE | 2020-01-02 01:55 | NUR ---
ALARM RINGING. ENTERED ROOM TO FIND PATIENT WITH LEGS OVER BED-RAIL. AGAIN INCONT OF URINE AND GREEN STOOL. PATIENT AND LINENS CHANGED. IV FLUIDS MAINTAINED. CALL LIGHT WITHIN REACH. BED ALARM REAPPLIED FOR SAFETY
--- NOTE | 2020-01-02 02:25 | NUR ---
PATIENT AGAIN CLIMBING OOB. UNABLE TO REORIENT PATIENT WHO STATES "I'M GOING TO THE PARKING LOT." PATIENT PLACED IN MOY-CHAIR & BROUGHT TO NURSES STATION.
--- NOTE | 2020-01-02 04:00 | NUR ---
REMAINS IN MOY-CHAIR. CONTINUALLY FIDGETING WITH CHAIR. NO VOICED COMPLAINTS
--- NOTE | 2020-01-02 05:00 | NUR ---
PATIENT REMAINS IN MOY-CHAIR. VERBALLY AGGRESSIVE WITH STAFF, MAKING THREATS TO CAUSE HARM. UNABLE TO REORIENT PATIENT. CLOSE OBSERVATION MAINTAINED
--- NOTE | 2020-01-02 05:28 | NUR ---
PATIENT CURSING, SWINGING AT AND ATTEMPTING TO SPIT ON STAFF. UNABLE TO CALM PATIENT. DR ANNA CONTACTED AND INFORMED OF BEVIORS. REQUEST FOR MEDS MADE
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
--- NOTE | 2020-01-02 05:38 | NUR ---
STAT IM GEODON GIVEN FOR AGITATION/AGRRESSIVE BEHAVIOR. WILL MONITOR
--- NOTE | 2020-01-02 06:00 | NUR ---
GEODON APPEARS EFFECTIVE. PATIENT RESTING WITH EYES CLOSED.
[2020-01-02 06:41] LABS: HEMATOCRIT 31.2 % (42.0-52.0); MEAN CELL VOLUME 95.1 fl (80.0-94.0); MEAN CORPUSCULAR HGB 31.4 pg (27.0-31.0); MEAN PLATELET VOLUME 9.6 fl (9.6-12.3); PLATELET COUNT AUTOMATED 145 10*3/uL (130-400); RED BLOOD COUNT 3.28 10*6/uL (4.50-5.90); RED CELL DISTRI WIDTH 13.6 % (0-14.5); WHITE BLOOD COUNT 10.3 10*3/uL (4.8-10.8)
[2020-01-02 07:15] LABS: CHLORIDE 108 mmol/L (98-107)
[2020-01-02 07:19] LABS: BUN 27 mg/dl (7-24); CREATININE 1.17 mg/dL (0.70-1.30)
[2020-01-02 07:30] LABS: SODIUM 142 mmol/L (136-145)
[2020-01-02 07:31] LABS: POTASSIUM 3.1 mmol/L (3.5-5.1)
[2020-01-02 07:32] LABS: PLATELET SUFFICIENCY NORMAL (NORMAL); TOTAL CELLS COUNTED 100 #CELLS
--- NOTE | 2020-01-02 07:43 | NUR ---
Patient refusing skin assessment at this time. When this nurse asked if I could look at his skin he shook his head no. Salina DYSON caring for patient made aware.
[2020-01-02 08:00] VITALS: BP 155/66
--- NOTE | 2020-01-02 08:00 | NUR ---
PATIENT IS COOPERATIVE AT THIS TIME AND IS TAKEN TO RADIOLOGY FOR TESTING.
--- NOTE | 2020-01-02 08:07 | NUR ---
PHYSICAL THERAPY Screen received as well as PT orders. Pt has been evaluated and is on caseload, thank you. Indiana Walsh PT
--- NOTE | 2020-01-02 08:18 | NUR ---
[facility] [place] is still reviewing patient; concern over patients medication Geodon. Waiting on review/acceptance.
--- NOTE | 2020-01-02 08:37 | NUR ---
GOLD LEAF LAYER RECEIVED CALL FROM PARTH BUSHPRAVEEN. GOLD LEAF LAYER PROVIDED HER UPDATED ON PATIENTS STATUS. GOLD LEAF LAYER FAXED OVER COMPETENCY EVAL AND UPDATED NOTES.
--- NOTE | 2020-01-02 09:25 | NUR ---
OT NOTE Attempted to see pt this A.M. for OT session and upon arrival pt was out of the room for X-ray will check back at a later time and continue with POC as able. TAMAR Dominique/Carleen
--- NOTE | 2020-01-02 09:32 | NUR ---
[facility] half-way and rehab stating they are unable to accept this patient. He is not appropriate for their facility. They also state they've had this patient in the past, back in 2016. At that time the patient was very difficult to control and they felt the son was unrealistic in patients care. Patient was discharged home with son at that time.
--- NOTE | 2020-01-02 10:15 | NUR ---
SPEECH PATHOLOGY Nursing screen completed. Patient does not appear appropriate for speech services at this time however this dept. will be available if future needs arise. MARIA A CHOE MSCCC-SHOP TAILOR APPRENTICE
--- NOTE | 2020-01-02 10:22 | NUR ---
ANAU AWARE OF CONUSLT.
--- NOTE | 2020-01-02 10:43 | NUR ---
PHYSICAL THERAPY Patient is aggitated this morning according to nursing and should be allowed to rest. Will check back with patient this afternoon. FUENTES BLAKE E BUSINESS CONSULTANT
--- NOTE | 2020-01-02 10:54 | NUR ---
OT NOTE Second attempt made to see pt this A.M. for OT session and upon arrival pt was still out of the room for a medical test. Will check back at a later time and continue with POC as able. TAMAR Dominique/Carleen
--- NOTE | 2020-01-02 11:00 | NUR ---
PHYSICAL THERAPY Patient is still in radiology getting X RAYS. Will check back this afternoon. FUENTES BLAKE MENDER KNIT GOODS
--- NOTE | 2020-01-02 11:47 | NUR ---
PATIENT BACK IN ROOM AND HAD DIARRHEA/LIQ STOOL ALL OVER THE FLOOR. CLEANED UP AND ASSISTED BACK TO BED.
[2020-01-02 12:00] VITALS: BP 160/55
--- NOTE | 2020-01-02 12:35 | NUR ---
ALEX CANALES CALLED PATIENT COMBATIVE TRYING TO LEAVE.
--- NOTE | 2020-01-02 12:42 | NUR ---
MEDICATED WITH 2MG IV ATIVAN PER ORDER.
--- NOTE | 2020-01-02 12:56 | NUR ---
CLEANED PATIENT UP HAD ANOTHER LOOSE STOOL.
--- NOTE | 2020-01-02 13:04 | NUR ---
OT NOTE Third attempt made to see pt this P.M. for OT session and upon arrival pt's nurse reported that pt is aggitated and having loose stool. Requesting to let pt rest at this time. Will check back at a later time/date and continue with POC as able. TAMAR Dominique/Carleen
--- NOTE | 2020-01-02 13:10 | NUR ---
ATIVAN NOT EFFECTIVE FROM EARLIER. PATIENT SOILED BED AND WILL NOT LET US CHANGE HIM STILL COMBATIVE PUTTING SOILED LINEN IN HIS MOUTH.
--- NOTE | 2020-01-02 13:30 | NUR ---
PHYSICAL THERAPY Patient is aggitated and the RN says he is inappropriate for therapy. Will check back at a later date. FUENTES BLAKE BUILDING OFFICIAL
--- NOTE | 2020-01-02 13:34 | NUR ---
I MG IV ATIVAN GIVEN SO STAFF CAN CHANGE BED AND PANTS. SLURRED SPEECH. STILL KICKING IN THE AIR.
--- NOTE | 2020-01-02 14:00 | NUR ---
PATIENT IS RESTING. BED CHANGED AGAIN DUE TO MASSIVE LIQ STOOL ALL OVER BED.
--- NOTE | 2020-01-02 14:59 | NUR ---
Discharge plan is for patient to return to [facility].
[2020-01-02 16:00] VITALS: BP 159/94
[2020-01-02 20:00] VITALS: BP 176/63
--- NOTE | 2020-01-02 20:00 | NUR ---
PATIENT MOVING ALL AROUND IN BED, TRYING TO GET OUT OF BED AND KEEPS CALLING OUT FOR NANETTE WHO SON STATES IS HIS THAT HAS . PATIENT INCONTINENT OF LOOSE STOOL. CHANGED AT THIS TIME AND PULLED UP IN BED FOR COMFORT. PATIENT REORIENTED. ASSESSMENT COMPLETE. 1:1 SITTER AT BEDSIDE. WILL CONTINUE TO MONITOR.
--- NOTE | 2020-01-02 22:00 | NUR ---
PATIENT HAD URINARY INCONT EPISODE. PATIENT WAS CLEANEDAND PROVIDED KAREN-CARE, HYDRAGUARD PLACED ON BUTTOCK/CPCCYX REGION. COMPLATE BED CHANGE COMPLETED.
--- NOTE | 2020-01-02 22:30 | NUR ---
PATIENT SLEEPING. RESPS EASY AND REGULAR. EARLIER MEDS SEEMS TO BE EFFECTIVE. 1:1 SITTER PRESENT.
[2020-01-03] VITALS: BP 144/84
--- NOTE | 2020-01-03 01:51 | NUR ---
24 HR chart check completed.
--- NOTE | 2020-01-03 02:12 | NUR ---
INFORMED PATIENT TRYING TO HIT AND KICK STAFF AND KEEPS TRYING TO CLIMB OUT OF BED. NEW ORDERS RECEIVED.
--- NOTE | 2020-01-03 02:17 | NUR ---
1MG IV ATIVAN GIVEN ORDERED. WILL ASSESS EFFECTIVENESS.
--- NOTE | 2020-01-03 03:06 | NUR ---
DR. ORTA NOTIFIED IV ATIVAN HAS NOT TOUCHED PATIENT AT ALL. PATIENT STILL HITTING AT STAFF AND PINCHING AND TRYING TO CLIMB OUT OF BED. NEW ORDERS RECEIVED.
--- NOTE | 2020-01-03 03:15 | NUR ---
IM GEODON GIVEN ORDERED. WILL ASSESS EFFECTIVENESS.
--- NOTE | 2020-01-03 04:15 | NUR ---
GEODON APPEARS TO BE SOMEWHAT EFFECTIVE. PATIENT HAS CALMED DOWN. NO LONGER TRYING TO HIT AND KICK STAFF. RESTING IN BED. 1:1 SITTER AT BEDSIDE.
[2020-01-03 05:59] LABS: BUN 24 mg/dl (7-24); CHLORIDE 120 mmol/L (98-107); CREATININE 1.22 mg/dL (0.70-1.30); POTASSIUM 3.5 mmol/L (3.5-5.1); SODIUM 153 mmol/L (136-145)
[2020-01-03 06:39] LABS: BASO % 0.3 % (0.0-1.0); EOS # 0.1 10*3/uL (0.0-0.4); EOS % 0.5 % (1.0-4.0); HEMATOCRIT 38.6 % (42.0-52.0); LYMPH # 1.4 10*3/uL (1.3-4.4); LYMPH % 11.2 % (27.0-41.0); MEAN CELL VOLUME 96.7 fl (80.0-94.0); MEAN CORPUSCULAR HGB 31.1 pg (27.0-31.0); MEAN CORPUSCULAR HGB CONC 32.1 g/dl (33.0-37.0); MEAN PLATELET VOLUME 9.6 fl (9.6-12.3); MONO # 0.9 10*3/uL (0.1-1.0); NEUT # 9.8 10*3/uL (2.3-7.9); NEUT % 80.1 % (47.0-73.0); PLATELET COUNT AUTOMATED 187 10*3/uL (130-400); RED BLOOD COUNT 3.99 10*6/uL (4.50-5.90); RED CELL DISTRI WIDTH 13.6 % (0-14.5); WHITE BLOOD COUNT 12.2 10*3/uL (4.8-10.8)
[2020-01-03 08:00] VITALS: BP 143/83
--- NOTE | 2020-01-03 08:00 | NUR ---
PATIENT IS VERY RESTLESS,PICKING AT THINGS IN AIR,KICKING LEGS UP TRYING TO CONSTANTLY GET OUT OF BED. 1:1 SITTER IN ROOM.
--- NOTE | 2020-01-03 08:50 | NUR ---
This nurse asked Salina DYSON caring for patient if it was a good time to assessment patient's skin. Salina DYSON states this is not a good time due to patient's behavior.
--- NOTE | 2020-01-03 11:29 | NUR ---
PANEL BUILDER RECEIVED PHONE FROM THE PATIENTS SON. PATIENTS SON WANTED TO KNOW IF THE PATIENT WOULD BE GOING OVER TO [facility]. PANEL BUILDER EXPLAINED THAT ONCE THE PATIENT IS MEDICALLY CLEARED HE WILL BE TRANSFERRED OVER THERE. PATIENTS ON AGREED AND UNDERSTOOD. PATIENTS SON ASKED ABOUT HOSPICE. PANEL BUILDER EXPLAINED HOSPICE TO HIM. PANEL BUILDER EXPLAINED ONCE HE IS DISCHARGED FROM [facility] IT COULD BE ARRANGED FOR THE PATIENT TO DISCHARGE HOME WITH HOSPICE AT THAT TIME. PANEL BUILDER FAXED A LIST OF HOSPICE AGENCIES TO [id number].
[2020-01-03 11:54] LABS: BASO # 0.1 10*3/uL (0.0-0.1); BASO % 0.5 % (0.0-1.0); EOS # 0.1 10*3/uL (0.0-0.4); EOS % 0.7 % (1.0-4.0); HEMATOCRIT 38.1 % (42.0-52.0); LYMPH # 1.6 10*3/uL (1.3-4.4); MEAN CORPUSCULAR HGB 30.4 pg (27.0-31.0); MEAN PLATELET VOLUME 9.4 fl (9.6-12.3); MONO % 6.9 % (3.0-9.0); NEUT # 11.5 10*3/uL (2.3-7.9); NEUT % 80.2 % (47.0-73.0); PLATELET COUNT AUTOMATED 208 10*3/uL (130-400); RED BLOOD COUNT 4.01 10*6/uL (4.50-5.90); RED CELL DISTRI WIDTH 13.5 % (0-14.5); WHITE BLOOD COUNT 14.3 10*3/uL (4.8-10.8)
[2020-01-03 12:00] VITALS: BP 134/63
[2020-01-03 12:07] LABS: CREATININE 1.44 mg/dL (0.70-1.30)
--- NOTE | 2020-01-03 13:15 | NUR ---
PHYSICAL THERAPY Patient seen this pm 1;1 for therapy visit and was sitting up in Abi chair with patient attendant present for 1:1 Supervision. Patient identified by name / and was hard to understand at times due to "mumbling" speech. Patient was alert and able to follow short, simple commands, tranfering sit to stand, MOTOR EQUIPMENT SERGEANT/MIN x 2, demonstrating initital slow rise. Patient ambulated MOTOR EQUIPMENT SERGEANT/MIN, reporting only some mild stomach pain, 30'x 1, demonstrating bouts of unsteady gait pattern and increased difficulty advancing R foot during all 90/180 turns. Patient fatigues quickly and needs multiple v/c's to complete all gait ex safely to avoid increased risk of falling. Patient returned to Abi chair in room and remained with lap tray under 1:1 direct patient care Supervision. Will continue per POC as tolerated, total treatment time 14 minutes. Benjamin Benitez, CHAPLAIN
--- NOTE | 2020-01-03 13:34 | NUR ---
OT NOTE Pt was seen this P.M. 1:1 for 20 minute OT session. Upon arrival pt was sitting upright in the jordyn chair. Pt identified by name and and had complaints of an upset stomach. Pt completed multiple sit to stand transfers from chair level with Francy X 2. Challenged pt's static standing tolerance needed for increased I and enhanced endurance, pt was able to tolerate aprox 60-90 seconds at a time before sitting due to fatigue. Functional mobility completed from the chair to the bathroom and back with CGA UNDER WATER ASSISTANT, pt had multiple LOB that required Francy to correct. After returning to the chair pt completed BUE towel exercises with min resistance over all planes for 1 X 10 to increase and restore maximum functional strength. Throughout entire session pt required verbal prompts for attention to task. Pt was left sitting upright in the jordyn chair with lap tray in place and under 1:1 supervision. Continue with rec D/C plan to SNF. CELIA Dominique
--- NOTE | 2020-01-03 15:28 | NUR ---
PER CLINICAL SUPPORT SPECIALIST LAB SALVADOR REJECTED 1ST COVID SPECIMEN HAVE TO OBTAIN NEW ONE.
[2020-01-03 16:00] VITALS: BP 122/61
[2020-01-03 20:00] VITALS: BP 146/60
[2020-01-03 20:06] LABS: BILIRUBIN NEGATIVE; BLOOD 2+ (NEGATIVE); CLARITY CLOUDY (CLEAR); COLOR YELLOW (YELLOW); GLUCOSE 2+; KETONE 1+; SPECIFIC GRAVITY >= 1.030 (1.001-1.030)
[2020-01-03 20:07] LABS: LEUKO ESTERASE NEGATIVE (NEGATIVE); NITRITE NEGATIVE (NEGATIVE)
[2020-01-03 20:17] LABS: BACTERIA 2+; FINE GRANULAR CAST 21-30; RBC 0-2 rbc/hpf (0-2)
--- NOTE | 2020-01-03 20:48 | NUR ---
SPOKE WITH DR. SCHOFIELD. PATIENT BECOMING INCREASINGLY AGITATED. THREATENING STAFF AND SWINGING FISTS MULTIPLE TIMES AT [facility] AND TRYING TO GET OUT OF BED. ORDERS RECEIVED.
--- NOTE | 2020-01-03 21:21 | NUR ---
IV GEODON GIVEN. PATIENT TRANSFERRED FROM CHAIR TO BED AT THIS TIME. PATIENT RESTING COMFORTABLY. NO FURTHER COMPLAINTS AT THIS TIME.
[2020-01-04 06:26] LABS: ALBUMIN 3.1 gm/dl (3.1-4.5); CREATININE 2.29 mg/dL (0.70-1.30); POTASSIUM 3.2 mmol/L (3.5-5.1)
[2020-01-04 06:28] LABS: TOTAL PROTEIN 7.5 gm/dL (6.4-8.2)
[2020-01-04 06:31] LABS: BASO % 0.3 % (0.0-1.0); EOS # 0.1 10*3/uL (0.0-0.4); EOS % 0.8 % (1.0-4.0); LYMPH # 1.3 10*3/uL (1.3-4.4); LYMPH % 15.2 % (27.0-41.0); MEAN CELL VOLUME 96.9 fl (80.0-94.0); MEAN CORPUSCULAR HGB 30.6 pg (27.0-31.0); MEAN CORPUSCULAR HGB CONC 31.6 g/dl (33.0-37.0); MEAN PLATELET VOLUME 9.8 fl (9.6-12.3); MONO # 0.7 10*3/uL (0.1-1.0); MONO % 8.3 % (3.0-9.0); NEUT # 6.4 10*3/uL (2.3-7.9); NEUT % 73.9 % (47.0-73.0); PLATELET COUNT AUTOMATED 173 10*3/uL (130-400); RED BLOOD COUNT 3.82 10*6/uL (4.50-5.90); RED CELL DISTRI WIDTH 13.8 % (0-14.5); WHITE BLOOD COUNT 8.7 10*3/uL (4.8-10.8)
--- NOTE | 2020-01-04 07:53 | NUR ---
OT NOTE Attempted to see pt this A.M. for OT session and upon arrival pt was supine in bed asleep. Pt aroused easily to verbal stimulation however was unable to stay awake for any longer than 10 seconds at a time. Will check back at a later time and continue with POC as able. TAMAR Dominique/Carleen
--- NOTE | 2020-01-04 09:00 | NUR ---
Discharge plan is for patient to return to [facility].
--- NOTE | 2020-01-04 09:30 | NUR ---
PHYSICAL THERAPY Patient seen this am 1:1 for therapy visit and sitting up in bedside chair with several nurses present upon therapist arrival. Patient identified by name / and was a little agitated when first apporached for therapy, stating "I just want to ". Patient was redirected with MAX v/c's for encouragement then requested to return to bed to rest. Patient transfered sit to stand from low chair surface MOD A x 1, ambulating 5'x 1, REGISTERED DENTAL HYGIENIST/MIN, demonstrating slow, unsteady gait pattern, with increased difficulty advancing R LE. Patient returned to bed MAX A and remained with under Nursing Supervision for patient care. Will continue per POC as tolerated, total treatment time 13 minutes. Benjamin Benitez, WELDER RAILCAR MECHANIC
--- NOTE | 2020-01-04 09:32 | NUR ---
Medicated with morphine iv per prn order for c/o abdominal pain. Pt after eating was reported by 1:1 sitter to be holding his stomach and stating it hurt. Questioned pt regarding pain and states stomach hurts. At 0933 pt was also medicated with zofran for c/o nausea.
--- NOTE | 2020-01-04 10:30 | NUR ---
No signs of pain or nausea noted.
--- NOTE | 2020-01-04 10:50 | NUR ---
Dr. Hastings in and saw pt.
[2020-01-04 13:00] VITALS: BP 130/64
--- NOTE | 2020-01-04 13:15 | NUR ---
OCCUPATIONAL THERAPY CO-SIGN I approve of the Occupational Therapy notes written above. MICKEY LOPEZ, OTR/L
--- NOTE | 2020-01-04 13:34 | NUR ---
OT NOTE Attempted to see pt this P.M. for OT session and upon arrival pt was supine in bed asleep. This therapist and pt's aide were both unable to arouse pt at this time. Will check back at a later time/date and continue with POC as able. TAMAR Dominique/Carleen
--- NOTE | 2020-01-04 14:10 | NUR ---
PHYSICAL THERAPY CO-SIGN I approve of the Physical Therapy notes written above. NOAH GEE PT, DPT
--- NOTE | 2020-01-04 14:50 | NUR ---
OCCUPATIONAL THERAPY CO-SIGN I approve of the Occupational Therapy notes written above. MICKEY LOPEZ, OTR/L
[2020-01-04 16:00] VITALS: BP 146/64
[2020-01-04 16:26] LABS: CREATININE 2.34 mg/dL (0.70-1.30); POTASSIUM 3.3 mmol/L (3.5-5.1)
--- NOTE | 2020-01-04 17:59 | NUR ---
Spoke with answering service for Nephrology. States they will page Dr. Awad for notification of labs.
--- NOTE | 2020-01-04 18:06 | NUR ---
Spoke with Dr. Awad. Notified of labs from this am and this evening and that pt had 1 liter of IVF after morning labs and 40 meq of KCl after am labs. No further orders received.
[2020-01-04 20:00] VITALS: BP 136/61
--- NOTE | 2020-01-04 20:20 | NUR ---
SPOKE TO PATIENTS SON REGARDING CODE STATUS. PER PATIENTS SON HE WISHES FOR PATIENT TO BE A COMOFT CARE. NO MEDICATIONS, NO INTUBATION, NO CHEST COMPRESSIONS. VERIFIED BY 2RNS. NOTIFIED DR. MOLINA HE NEEDED TO SIGN PAPERWORK TO MAKE IT OFFICAL. NEW CODE STATUS ORDERED PLACED.
--- NOTE | 2020-01-04 20:53 | NUR ---
DR. MOLINA ON FLOOR TO SIGN CODE STATUS PAPER.
--- NOTE | 2020-01-04 22:21 | NUR ---
UNABLE TO AROUSE PATIENT. PATIENT VITALS STABLE AT THIS TIME. NO SIGNS OF DISTRESS. PATIENT BRIEF SATURATED AND CHANGED AT THIS TIME. FLUID BOLUS STARTED. PATIENT REPOSITIONED. BED IN LOWEST POSITION,CALL LIGHT WITHIN REACH. BED ALARM ON. 1:1 SITTER IN ROOM. WILL CONTINUE TO MONITOR.
[2020-01-05] VITALS: BP 168/73
--- NOTE | 2020-01-05 | NUR ---
PATIENT SLEEPING. NO SIGNS OF DISTRESS. RESPIRATIONS EASY, NON LABORED. VSS. 1:1 SITTER IN ROOM. BED IN LOWEST POSITION, BED RAILS UP X2. BED ALARM ON. WILL CONTINUE TO MONITOR.
--- NOTE | 2020-01-05 06:21 | NUR ---
NOTIFIED DR. ORTA PATIENT HAS NO MORNING LABS ORDERED. ORDERS PLACED.
--- NOTE | 2020-01-05 06:30 | NUR ---
PATIENT REFUSING TO TAKE MORNING MEDS. STATES "I DONT LIKE BEING WOKEN UP". WILL CONTINUE TO MONITOR.
[2020-01-05 07:05] LABS: BASO % 0.5 % (0.0-1.0); EOS # 0.2 10*3/uL (0.0-0.4); EOS % 2.1 % (1.0-4.0); HEMATOCRIT 32.8 % (42.0-52.0); LYMPH # 1.7 10*3/uL (1.3-4.4); LYMPH % 19.4 % (27.0-41.0); MEAN CORPUSCULAR HGB 30.7 pg (27.0-31.0); MEAN CORPUSCULAR HGB CONC 32.6 g/dl (33.0-37.0); MEAN PLATELET VOLUME 8.7 fl (9.6-12.3); MONO # 0.7 10*3/uL (0.1-1.0); MONO % 8.2 % (3.0-9.0); PLATELET COUNT AUTOMATED 180 10*3/uL (130-400); RED BLOOD COUNT 3.49 10*6/uL (4.50-5.90); RED CELL DISTRI WIDTH 13.8 % (0-14.5); WHITE BLOOD COUNT 8.8 10*3/uL (4.8-10.8)
[2020-01-05 07:19] LABS: CREATININE 2.01 mg/dL (0.70-1.30); POTASSIUM 3.3 mmol/L (3.5-5.1)
[2020-01-05 08:00] VITALS: BP 159/59
--- NOTE | 2020-01-05 11:00 | NUR ---
Pt agitated attempted to walk pt in the [facility] but agitation worsened. Pt states he wants to get out of here. States he wants to go home. Pt assisted back into room states he wants to get dressed and get out of here. Threatening to beat, hit and kick staff.
--- NOTE | 2020-01-05 11:05 | NUR ---
Spoke with Dr. Martínez regarding pt increased agitation. Pt is threatening violence to staff and eventally attempted to kick the one on one sitter. States he will order ativan iv for pt.
--- NOTE | 2020-01-05 11:12 | NUR ---
Medicated with ativan iv per order for agitation.
--- NOTE | 2020-01-05 11:45 | NUR ---
Pt less agitated. Still alert and sitting up in jordyn chair at this time. One on one sitter in room.
[2020-01-05 12:00] VITALS: BP 146/67
--- NOTE | 2020-01-05 15:00 | NUR ---
Incontient of urine. Pericare provided and changed at this time. Pt hair also washed with shower shampoo cap. Pt cooperative with care.
[2020-01-05 16:00] VITALS: BP 139/66
--- NOTE | 2020-01-05 16:52 | NUR ---
Spoke with Pt son Yaya Hatfield . States when pt is good to be dc from hospital he wants pt to go to [facility] in [place]. Son states he is not sure if pt is going to go to [facility] first but he eventally wants pt to go to [facility].
--- NOTE | 2020-01-05 19:48 | NUR ---
BP FROM LT ARM 130/50. PT PLEASANT AND COOPERATIVE DURING ASSESSMENT. 1:1 MAINTAINED. PT RESTING IN CHAIR. CALL LIGHT IN REACH
[2020-01-05 20:00] VITALS: BP 130/50
--- NOTE | 2020-01-05 21:06 | NUR ---
DR ORTA NOTIFIED PT BLOOD GLUCOSE CHECK 471 AND RECHECK 403, STATES OK TO GIVE PER SLIDING SCALE
[2020-01-06] VITALS: BP 139/66
[2020-01-06 05:47] LABS: CREATININE 1.99 mg/dL (0.70-1.30)
[2020-01-06 06:05] LABS: HEMATOCRIT 34.4 % (42.0-52.0); MEAN CELL VOLUME 94.2 fl (80.0-94.0); MEAN CORPUSCULAR HGB 30.7 pg (27.0-31.0); MEAN CORPUSCULAR HGB CONC 32.6 g/dl (33.0-37.0); MEAN PLATELET VOLUME 9.1 fl (9.6-12.3); PLATELET COUNT AUTOMATED 206 10*3/uL (130-400); RED BLOOD COUNT 3.65 10*6/uL (4.50-5.90); RED CELL DISTRI WIDTH 13.4 % (0-14.5)
[2020-01-06 06:46] LABS: TOTAL CELLS COUNTED 100 #CELLS
[2020-01-06 06:47] LABS: PLATELET SUFFICIENCY NORMAL (NORMAL)
[2020-01-06 08:00] VITALS: BP 152/65
[2020-01-06 12:00] VITALS: BP 143/75; BP 146/65
[2020-01-06 16:00] VITALS: BP 129/50; BP 98/63
--- NOTE | 2020-01-06 18:27 | NUR ---
PT BECAME AGITATED. STATES HE WANTS TO GO HOME, TRYING TO GET OUT OF BED. PT STATES HE IS EXPERIENCING CHEST PAIN, BUT WILL NOT ANSWER ANY QUESTIONS REGARDING KIND OF PAIN. PT JUST REPEATS PAIN AND POINTS TO HIS CHEST. DR. PACE NOTIFIED. VITALS STABLE. ORDERS OBTAINED AND ENTERED. WILL CONTINUE TO MONITOR.
[2020-01-06 20:00] VITALS: BP 133/64
--- NOTE | 2020-01-06 20:17 | NUR ---
patient set off chair alarm. when i entered the room he was out of ther jordyn-chair stating he was leaving and wanted to go home. when we attempted to assist him back to his chair he swung at both me and nurse grace. we got patient back into his chair. chair alarm attached. meds given with applesauce with no problems.
--- NOTE | 2020-01-06 23:45 | NUR ---
PATIENT RESTING IN CHAIR. EYES CLOSED. RESPIRATIONS EASY, REGULAR, NO DISTRESS NOTED. REPOSITIONED TO RECLINE BACK IN CHAIR WITH PILLOW AND BLANKET APPLIED. WILL CONTINUE TO MONITOR.
[2020-01-07 00:06] VITALS: BP 131/62
--- NOTE | 2020-01-07 06:00 | NUR ---
WENT IN WITH 2 PA'S TO GET THE PATIENT CLEANED UP, CHANGED, AND BACK INTO BED. PATIENT WAS REFUSING TO GET INTO THE BED OR LET US STAND HIM UP TO CHANGE HIM AT FIRST. AFTER TALKING WITH THE PATIENT FOR A WHILE HE LET US MOVE HIM FROM THE CHAIR TO THE BED. PATIENT DID WELL WITH MOVING. WHEN PATIENT WAS IN BED I NOTICED A NEW WOUND TO PATIENT'S SPINE IN THE MIDDLE OF HIS BACK. NOTIFIED WOUND CARE NURSE, [facility] RN ESTEFANIA. PICTURE TAKEN AND MEASURED/DOCUMENTED. AWAITING WOUND CARE ORDERS.
[2020-01-07 07:32] LABS: CREATININE 1.57 mg/dL (0.70-1.30); POTASSIUM 3.8 mmol/L (3.5-5.1)
--- NOTE | 2020-01-07 07:55 | NUR ---
PHYSICAL THERAPY Per discussion with patients Nurse, therapist advised patient had just fell asleep and has had a rough night, so Nurse requested therapy to let patient sleep this morning. Will attempt treatment later this morning or pm as able. Benjamin Benitez, BLINDSTITCH LAPEL PADDER
--- NOTE | 2020-01-07 07:56 | NUR ---
OT NOTE Attempted to see pt this A.M. for OT session and upon arrival pt's nurse informed therapist that pt was up throughout the night, aggitated, and just now resting. Requesting for therapy to check back at a later time. Will continue with POC as able. CELIA Dominique
--- NOTE | 2020-01-07 07:58 | NUR ---
NYLON OPERATOR LEFT MESSAGE FOR [facility], PER RN NOTES ON 01/05/2020 PATIENTS SON REQUESTED REFERRAL TO BE SENT THERE. WILL AWAIT RETURN CALL AND WILL FOLLOW UP.
[2020-01-07 08:00] VITALS: BP 157/78
--- NOTE | 2020-01-07 08:09 | NUR ---
GRID INSPECTOR RECEIVED CALL FROM [facility]. GRID INSPECTOR PROVIDED UPDATE.
--- NOTE | 2020-01-07 11:00 | NUR ---
PHYSICAL THERAPY Patient seen this am 1;1 for therapy visit and was sitting up in Abi chair upon therapist arrival. Patient identified by name / and reports no new c/o's at this time. Patient transfers sit to stand with MIN A, with use of WBQC for standing support. Patient was a little "wobbly" upon initial rise and ambulated MIN A, 20'x 1 to bathroom, WBQC, then additional 30'x 1, demonstrating bouts of unsteady gait pattern, Patient needed several v/c's to to improve safe step sequenc from "step to" harriet to improved L step length. Patient is also unsteady during all 90/180 turns and returned to Abi chair with increased fatigue. Patient remained in chair with call light, lap tray and body alarm for safety. Will continue per POC as tolerated, total treatment time 17 minutes. Benjamin Benitez, GARBAGE PERSON
--- NOTE | 2020-01-07 11:10 | NUR ---
OT NOTE Pt was seen this A.M. 1:1 for 15 minute OT session. Upon arrival pt was sitting upright in the jordyn chair. Pt identified by name and and had no complaints at this time. Pt completed sit to stand from chair level with Francy and use of quad cane in his LUE. Functional mobility completed to the bathroom with Francy and use of quad cane assist required due to poor safety awareness and bouts of unsteady stance that required Francy to correct. There he transferred on/off standard commode with Francy due to poor safety with alignment and low surface. Functional mobility completed back to the jordyn chair again requiring Francy due to being unsteady. Challenged pt's dynamic standing balance while weight shifting, crossing midline, and reaching over all planes. Pt was able to maintain F- standing balance throughout. Pt was left sitting upright in the jordyn chair with call light in hand, body alarm activated for safety, and lap tray in place. COntinue with rec D/C plan to SNF. CELIA Dominique
[2020-01-07 12:00] VITALS: BP 135/55
--- NOTE | 2020-01-07 12:52 | NUR ---
DINING MANAGER LEFT MESSAGE AT [facility] FOLLOWING UP ON REFERRAL.
--- NOTE | 2020-01-07 13:27 | NUR ---
DR ALEMAN NOTIFIED THAT PT IS COMBATIVE AND REFUSING TO STAY IN CHAIR. SITTER ORDERED.
--- NOTE | 2020-01-07 14:32 | NUR ---
TECHNICAL LABORATORY ASST RECEIVED VOICE MAIL FROM PATIENTS SON. TECHNICAL LABORATORY ASST RETURNED CALL TECHNICAL LABORATORY ASST EXPLAINED REFERRAL IS BEING REVIEWED. PATIENT SON STATED HE WOULD LIKE [facility] BACK UP.
[2020-01-07 16:00] VITALS: BP 161/58
[2020-01-07 20:00] VITALS: BP 131/58
[2020-01-08] VITALS: BP 114/48
[2020-01-08 06:55] LABS: CREATININE 1.56 mg/dL (0.70-1.30); POTASSIUM 3.7 mmol/L (3.5-5.1)
[2020-01-08 08:00] VITALS: BP 167/66
--- NOTE | 2020-01-08 08:23 | NUR ---
REFERRAL FAXED TO [facility] FOR REVIEW.
--- NOTE | 2020-01-08 09:47 | NUR ---
RAGHAV IS STILL LOOKING AT THE REFERRAL. RAGHAV ALSO SENT THE [facility].
--- NOTE | 2020-01-08 10:00 | NUR ---
PHYSICAL THERAPY Patient seen this am 1:1 for therapy visit and was sitting up in bedside Abi chair upon therapist arrival. Patient identified by name / and voices no new c/o's at this time. Patient was also 1:1 for direct Supervision for safety by patient attendant very pleasant this morning. Patient transfers sit to stand with MIN A, needing v/c for proper hand placement, then ambulates with use of WBQC, 20'x 1 to bathroom, then additional 35'x 1, CGA, demonstrating slow, cautious gait pattern. Patient also demonstrated slight improved R foot placement with less hip circumflexing, however still remains unsteady during all 180 turns, requiring MIN A. Patient returned to Abi chair with increased fatigue and remained in chair under direct 1;1 patient attendant Supervision. Will continue per POC as tolerated, total treatment time 16 minutes. Benjamin Benitez, ROAD DRIVER
--- NOTE | 2020-01-08 10:01 | NUR ---
OT NOTE Pt up in jordyn chair agreeable to 15 minute OT session. Identified by name and date of with no complaints to date. Sit-stand modA with quad-cane for UB support. Functional mobility from jordyn-chair to bathroom CGA with quad-cane with bouts of unsteady stance that required Francy to correct. Transferring on the toilet was CGA with cane, coming off the toilet was modA due to low rise toilet. Activity tolerance was challenged by walking from bathroom to hallway and back to jordyn-chair with cane at CGA. Pt was able to tolerate approx 5 minutes of activity without fatigue. Pt was left in jordyn-chair with sitter in room. Continue d/c recommended SNF. ROSMERY Callejas/TAMAR Machado/Carleen
--- NOTE | 2020-01-08 10:22 | NUR ---
BUILDING SURVEYOR SENT REFERRAL TO [facility].
--- NOTE | 2020-01-08 11:06 | NUR ---
PT UP AND IN SHOWER WITH PA. TOLERATED WELL.PLEASANT AND COOPERATIVE. TOLERATED WELL. NO BEHAVIORS OR MOODS NOTED AT THIS TIME.
[2020-01-08 12:00] VITALS: BP 165/62
--- NOTE | 2020-01-08 12:22 | NUR ---
TYLENOL 650 MG GIVEN FOR C/O JHA AND EAR PAIN.
--- NOTE | 2020-01-08 12:42 | NUR ---
[facility] IS REQUESTING UPDATES. THEIR FAX IS DOWN, [employer] DEVELOPER TO [facility]
--- NOTE | 2020-01-08 14:29 | NUR ---
[facility] IS UNABLE TO ACCEPT THE PATIENT.
[2020-01-08 16:00] VITALS: BP 142/51
--- NOTE | 2020-01-08 16:36 | NUR ---
[employer] FAXED REFERRAL TO [facility] FOR REVIEW.
--- NOTE | 2020-01-08 16:46 | NUR ---
TYLENOL 650 MG GIVEN FOR C/O EAR PAIN AND H/A.
--- NOTE | 2020-01-08 19:19 | NUR ---
ZOFRAN 4 MG GIVEN FOR C/O NAUSEA AND DRY HEAVING.
--- NOTE | 2020-01-08 19:43 | NUR ---
NOTIFIED DR ORTA THAT PT WAS C/O H/A, EAR ACHES WITH WHAT APPEARS TO BE EAR WAX ACCUMULATED IN EARS AND NAUSEA.
[2020-01-08 20:00] VITALS: BP 149/59
--- NOTE | 2020-01-08 23:31 | NUR ---
RESUMED 1:1 CARE OF PATIENT. PATIENT RESTING IN CHAIR QUIETLY. NO SIGNS OR SYMPTOMS OF DISTRESS NOTED OR VOICED. MIDNIGHT MEDICATIONS TAKEN WITH NO PROBLEM. FEET ELEVATED FOR COMFORT WITH PILLOW. PILLOW PLACED UNDER PATIENT'S ELBOW TO AVOID PRESSURE. WILL CONTINUE TO MONITOR.
[2020-01-09] VITALS: BP 141/54
--- NOTE | 2020-01-09 00:05 | NUR ---
PATIENT COMPLAINING OF THROAT "BURNING". PATIENT DRY HEAVING AND SAYING, "HELP ME QUICK". BASIN PROVIDED AND NURSE TAKING CARE OF PATIENT NOTIFIED. PATIENT CAN HAVE ZOFRAN AGAIN AT ABOUT 0115.
--- NOTE | 2020-01-09 00:39 | NUR ---
TUMS GIVEN FOR "BURNING" IN THROAT. WARM TEA ALSO GIVEN. WILL ASSESS EFFECTIVENESS.
--- NOTE | 2020-01-09 01:14 | NUR ---
ZOFRAN GIVEN FOR COMPLAINTS OF NAUSEA AND DRY HEAVING. WILL ASSESS EFFECTIVENESS.
--- NOTE | 2020-01-09 01:15 | NUR ---
TUMS SOMEWHAT EFFECTIVE. PATIENT COMPLAINING OF NAUSEA AND DRY HEAVING.
--- NOTE | 2020-01-09 01:35 | NUR ---
DRESSING APPLIED TO PATIENT'S BACK PER ORDERS. PATIENT WAS COOPERATIVE WITH CARE.
--- NOTE | 2020-01-09 02:10 | NUR ---
PJ EFFECTIVE PER PATIENT. RESTING COMFORTABLY IN CHAIR. RESPIRATIONS EASY, REGULAR, NO DISTRESS NOTED.
[2020-01-09 06:29] LABS: BASO # 0.1 10*3/uL (0.0-0.1); BASO % 0.5 % (0.0-1.0); EOS # 0.1 10*3/uL (0.0-0.4); EOS % 1.4 % (1.0-4.0); HEMATOCRIT 33.9 % (42.0-52.0); LYMPH # 2.2 10*3/uL (1.3-4.4); LYMPH % 21.7 % (27.0-41.0); MEAN CELL VOLUME 92.1 fl (80.0-94.0); MEAN CORPUSCULAR HGB 30.4 pg (27.0-31.0); MEAN PLATELET VOLUME 9.2 fl (9.6-12.3); MONO # 0.6 10*3/uL (0.1-1.0); MONO % 5.9 % (3.0-9.0); NEUT # 6.8 10*3/uL (2.3-7.9); NEUT % 67.7 % (47.0-73.0); PLATELET COUNT AUTOMATED 196 10*3/uL (130-400); RED BLOOD COUNT 3.68 10*6/uL (4.50-5.90); RED CELL DISTRI WIDTH 13.3 % (0-14.5)
[2020-01-09 06:36] LABS: CREATININE 1.6 mg/dL (0.70-1.30); POTASSIUM 3.7 mmol/L (3.5-5.1)
--- NOTE | 2020-01-09 07:42 | NUR ---
[facility] HAS NO BEDS AT THIS TIME. [facility] HAS NOT RESPONDED. WILL FOLLOW UP.
--- NOTE | 2020-01-09 07:50 | NUR ---
PHYSICAL THERAPY Patient seen this am 1;1 for therapy visit and was sitting up in bedside Abi chair upon therapist arrival. Patient identified by name / and voices no new c/o's at this time. OT hotel administrative assistant was also present for observation this session and patient transfers sit to stand from low chair surface, MIN A x 2. 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 Patient ambulated 50'x 2, use of WBQC, CGA during straight line gait and MIN A during all 90/180 turns secondary to unsteady step sequence. Patient returned to bedside Abi chair with increased fatigue and remained under patient attendant 1:1 direct Supervision. Will continue per POC as tolerated, total treatment time 17 minutes. Benjamin Benitez, PARIMUTUEL TICKET CHECKER
[2020-01-09 08:00] VITALS: BP 146/59
--- NOTE | 2020-01-09 08:00 | NUR ---
OT NOTE Pt was seen this A.M. 1:1 for 15 minute OT session. Upon arrival pt was sitting upright in the jordyn chair. Pt identified by name and and had no complaints at this time. Pt completed sit to stand from chair level with Francy and use of quad cane in LUE. Functional mobility completed to the bathroom and back with CGA and use of quad cane in LUE. Throughout mobility pt had bouts of unsteady stance that required Francy to correct. After returning to the chair pt completed AROM to LUE over all planes for 1 X 10 and educated pt on self ranging of his RUE and pt completed 1 X 5 over all planes. Pt was left sitting upright in the jordyn chair under 1:1 supervision. Continue with rec D/C plan to SNF. CELIA Dominique
--- NOTE | 2020-01-09 08:01 | NUR ---
ASSISTANT READING TEACHER SPOKE WITH PARTH DELANEY. ASSISTANT READING TEACHER EXPLAINED UNABLE TO FIND PLACEMENT FOR THIS PATIENT. ASSISTANT READING TEACHER EXPLAINED THAT 2 FACILITIES STILL HAVE THE REFERRAL OUT. PARTH ASKED IF THESE TWO FACILITIES DENY THE PATIENT IF HOME HEALTH COULD GO IN ASSISTANT READING TEACHER EXPLAINED YES. ASSISTANT READING TEACHER WILL FOLLOW UP WITH THE FACILITIES.
--- NOTE | 2020-01-09 08:38 | NUR ---
LEAD PROJECT ENGINEER LEFT MESSAGE FOR [facility] ADMISSIONS.
--- NOTE | 2020-01-09 09:00 | NUR ---
PT REMAINS SITTING IN THE CHAIR. VSS. PT COOPERATIVE WITH CARE. 1:1 SITTER REMAINS WITH PT.
--- NOTE | 2020-01-09 11:48 | NUR ---
NUCLEAR MEDICINE OFFICER SPOKE WITHT THE PATIENTS SON. NUCLEAR MEDICINE OFFICER EXPLAINED THAT WE DO NOT HAVE AN ACCEPTING FACILITY. NUCLEAR MEDICINE OFFICER EXPLAINED THE REFERRAL WAS STILL BEING REVIEWED BY [address] [facility] AND [facility]. PATIENT SON NO TO [facility]. HE SAID HE WILL JUST COME AND GET THE PATIENT. HE STATED HE WAS NOT SURE ABOUT HOME HEALTH THE PATIENT WOULD LIKELY REFUSE TO LET THEM IN THE HOME. NUCLEAR MEDICINE OFFICER NOTIFIED RN HOSPITALIST COORDINATOR JA. CUSTOMER ACCOUNT ADMINISTRATOR IS AWARE. NUCLEAR MEDICINE OFFICER NOTIFIED PATIENT KIEL WRIGHT THAT PATIENTS SON WILL BE ABLE TO TRANSPORT AFTER 3PM TODAY.
[2020-01-09 12:00] VITALS: BP 153/56
--- NOTE | 2020-01-09 13:34 | NUR ---
SHOBHA RECEIVED CALLF FROM PATIENTS SON. SHOBHA EXPLAINED DISCHARGE IS NOT IN OF THE COVERSATION. SHOBHA EXPLAINED THE RECOMMEDATION IS HOME WITH HOME HEALTH. HE STATED "MY WORKS FOR A SENIOR CARE, WE WILL TALK TO THEM ABOUT IT." SHOBHA EXPLAINED SOMEONE WILL CONTACT HIM WITH THE PATIENTS DISCHARGE IS IN. HE UNDERSTOOD.
--- NOTE | 2020-01-09 15:34 | NUR ---
DISCHARGE ORDERS RECVEIWED WITH PT'S SON OVER THE PHONE. PT'S SON IS ON THE WAY TO GET HIM. HL D/C'D INTACT.
--- NOTE | 2020-01-09 16:15 | NUR ---
PT DISCHARGED TO HOME VIA WC. PT'S SON GIVEN MONEY FROM [employer].
--- NOTE | 2020-01-10 07:10 | NUR ---
OCCUPATIONAL THERAPY CO-SIGN I approve of the Occupational Therapy notes written above. MICKEY LOPEZ, OTR/L
--- NOTE | 2020-01-10 07:56 | NUR ---
PHYSICAL THERAPY CO-SIGN I approve of the Physical Therapy notes written above. Indiana Walsh PT
== END 2020-01-09 20:06 | disposition home or self-care (01) | DRG 377 ==
LOC: 4E 10:23
PROVIDERS: Hospitalist; Internal Medicine; Student in an Organized Health Care Education/Training Program; Surgery; ADMIT Internal Medicine; ATTEND Internal Medicine
PROC: 0DB68ZX Excision of Stomach, Via Natural or Artificial Opening Endoscopic, Diagnostic (ICD-10-PCS; principal; 2020-01-01)
PROC: 0D9670Z Drainage of Stomach with Drainage Device, Via Natural or Artificial Opening (ICD-10-PCS; 2020-01-02)
DX: K29.71 Gastritis, unspecified, with bleeding (principal); N17.0 Acute kidney failure with tubular necrosis; E87.1 Hypo-osmolality and hyponatremia; K50.90 Crohn's disease, unspecified, without complications; K56.609 Unspecified intestinal obstruction, unspecified as to partial versus complete obstruction; I69.351 Hemiplegia and hemiparesis following cerebral infarction affecting right dominant side; K29.81 Duodenitis with bleeding; E86.0 Dehydration; D64.9 Anemia, unspecified; E87.5 Hyperkalemia; D72.829 Elevated white blood cell count, unspecified; N18.3 Chronic kidney disease, stage 3 (moderate); F63.81 Intermittent explosive disorder; G30.9 Alzheimer's disease, unspecified; E11.22 Type 2 diabetes mellitus with diabetic chronic kidney disease; I12.9 Hypertensive chronic kidney disease with stage 1 through stage 4 chronic kidney disease, or unspecified chronic kidney disease; F02.80 Dementia in other diseases classified elsewhere, unspecified severity, without behavioral disturbance, psychotic disturbance, mood disturbance, and anxiety; E03.9 Hypothyroidism, unspecified; E11.65 Type 2 diabetes mellitus with hyperglycemia; Z66 Do not resuscitate; Z51.5 Encounter for palliative care; I25.2 Old myocardial infarction; Z93.2 Ileostomy status; Z90.49 Acquired absence of other specified parts of digestive tract; Z95.5 Presence of coronary angioplasty implant and graft; Z87.891 Personal history of nicotine dependence

== ENCOUNTER 2020-01-10 22:23 | Inpatient (IN) | payer OTHER ==
[~2020-01-10] VITALS: Ht 182.8 cm; Wt 66.9 kg
[2020-01-10 22:29] VITALS: BP 144/52
[2020-01-10 22:55] LABS: BASO % 0.3 % (0.0-1.0); EOS # 0.2 10*3/uL (0.0-0.4); EOS % 1.2 % (1.0-4.0); HEMATOCRIT 30.6 % (42.0-52.0); LYMPH # 2.6 10*3/uL (1.3-4.4); LYMPH % 19.6 % (27.0-41.0); MEAN CELL VOLUME 92.4 fl (80.0-94.0); MEAN CORPUSCULAR HGB 31.1 pg (27.0-31.0); MEAN CORPUSCULAR HGB CONC 33.7 g/dl (33.0-37.0); MEAN PLATELET VOLUME 8.9 fl (9.6-12.3); MONO # 0.8 10*3/uL (0.1-1.0); MONO % 5.7 % (3.0-9.0); NEUT # 9.7 10*3/uL (2.3-7.9); NEUT % 72.1 % (47.0-73.0); PLATELET COUNT AUTOMATED 193 10*3/uL (130-400); RED BLOOD COUNT 3.31 10*6/uL (4.50-5.90); RED CELL DISTRI WIDTH 13.4 % (0-14.5); WHITE BLOOD COUNT 13.5 10*3/uL (4.8-10.8)
[2020-01-10 23:11] LABS: ALBUMIN 3.3 gm/dl (3.1-4.5); ALKALINE PHOSPHATASE 66 U/L (45-117); BUN 19 mg/dl (7-24); CHLORIDE 101 mmol/L (98-107); CREATININE 2.18 mg/dL (0.70-1.30); POTASSIUM 4.3 mmol/L (3.5-5.1); SGOT/AST 16 IU/L (3-35); SGPT/ALT 18 U/L (12-78); SODIUM 134 mmol/L (136-145); TOTAL PROTEIN 7.7 gm/dL (6.4-8.2)
[2020-01-10 23:14] LABS: ACETAMINOPHEN (TYLENOL) < 5.0 ug/ml (10-30); ETHYL ALCOHOL < 3.0 mg/dl (<3)
[2020-01-11 00:05] LABS: URINE AMPHETAMINES < 1000 (1000ng/ml); URINE BARBITURATES < 200 (200ng/ml); URINE BENZODIAZEPINES > 200 (200ng/ml); URINE CANNABINOIDS (THC) < 50 (50ng/ml); URINE COCAINE < 300 (300ng/ml); URINE METHADONE < 300 (300ng/ml); URINE OPIATES < 300 (300ng/ml)
[2020-01-11 00:11] LABS: URINE PHENCYCLIDINE < 25 (25ng/ml)
[2020-01-11 00:12] LABS: BILIRUBIN NEGATIVE; BLOOD NEGATIVE (NEGATIVE); CLARITY CLOUDY (CLEAR); COLOR YELLOW (YELLOW); GLUCOSE 3+; KETONE NEGATIVE; LEUKO ESTERASE 1+ (NEGATIVE); NITRITE NEGATIVE (NEGATIVE)
[2020-01-11 00:13] LABS: BACTERIA 1+; EPITHELIAL CELLS 31-40; WBC 16-20 wbc/hpf (0-5); YEAST TRACE
[2020-01-11 06:33] LABS: BASO % 0.4 % (0.0-1.0); EOS # 0.2 10*3/uL (0.0-0.4); EOS % 1.8 % (1.0-4.0); HEMATOCRIT 31.2 % (42.0-52.0); LYMPH # 2.6 10*3/uL (1.3-4.4); LYMPH % 26.4 % (27.0-41.0); MEAN CELL VOLUME 93.7 fl (80.0-94.0); MEAN CORPUSCULAR HGB 30.9 pg (27.0-31.0); MEAN PLATELET VOLUME 9.1 fl (9.6-12.3); MONO # 0.6 10*3/uL (0.1-1.0); MONO % 6.1 % (3.0-9.0); NEUT # 6.3 10*3/uL (2.3-7.9); NEUT % 64.3 % (47.0-73.0); PLATELET COUNT AUTOMATED 169 10*3/uL (130-400); RED BLOOD COUNT 3.33 10*6/uL (4.50-5.90); RED CELL DISTRI WIDTH 13.6 % (0-14.5); WHITE BLOOD COUNT 9.9 10*3/uL (4.8-10.8)
[2020-01-11 07:06] LABS: CREATININE 1.91 mg/dL (0.70-1.30); POTASSIUM 3.6 mmol/L (3.5-5.1)
[2020-01-11 07:37] LABS: ACT PARTIAL THROMBO TIME 24.5 SECONDS (20.0-32.1)
[2020-01-11 08:00] VITALS: BP 138/67
[2020-01-11 12:00] VITALS: BP 131/80
[2020-01-11 16:00] VITALS: BP 128/80
[2020-01-11 16:22] VITALS: BP 134/55
[2020-01-11 20:00] VITALS: BP 137/60
[2020-01-12] VITALS: BP 110/47
[2020-01-12 06:15] LABS: BASO % 0.5 % (0.0-1.0); EOS # 0.2 10*3/uL (0.0-0.4); HEMATOCRIT 29.5 % (42.0-52.0); LYMPH # 2.3 10*3/uL (1.3-4.4); LYMPH % 30.7 % (27.0-41.0); MEAN CELL VOLUME 93.4 fl (80.0-94.0); MEAN CORPUSCULAR HGB 30.4 pg (27.0-31.0); MEAN CORPUSCULAR HGB CONC 32.5 g/dl (33.0-37.0); MEAN PLATELET VOLUME 9.3 fl (9.6-12.3); MONO # 0.6 10*3/uL (0.1-1.0); MONO % 7.5 % (3.0-9.0); NEUT # 4.3 10*3/uL (2.3-7.9); NEUT % 58.4 % (47.0-73.0); PLATELET COUNT AUTOMATED 163 10*3/uL (130-400); RED BLOOD COUNT 3.16 10*6/uL (4.50-5.90); RED CELL DISTRI WIDTH 13.4 % (0-14.5); WHITE BLOOD COUNT 7.4 10*3/uL (4.8-10.8)
[2020-01-12 06:16] LABS: CREATININE 1.67 mg/dL (0.70-1.30); POTASSIUM 3.8 mmol/L (3.5-5.1)
[2020-01-12 08:00] VITALS: BP 144/63
[2020-01-12 16:00] VITALS: BP 118/45
[2020-01-12 20:00] VITALS: BP 137/53
[2020-01-13] VITALS: BP 122/48
[2020-01-13 04:00] VITALS: BP 153/61
[2020-01-13 05:08] LABS: CREATININE 1.57 mg/dL (0.70-1.30); POTASSIUM 3.7 mmol/L (3.5-5.1)
[2020-01-13 06:08] LABS: BASO % 0.6 % (0.0-1.0); EOS # 0.2 10*3/uL (0.0-0.4); EOS % 2.3 % (1.0-4.0); HEMATOCRIT 30.9 % (42.0-52.0); LYMPH # 1.8 10*3/uL (1.3-4.4); LYMPH % 26.7 % (27.0-41.0); MEAN CELL VOLUME 93.6 fl (80.0-94.0); MEAN CORPUSCULAR HGB 30.9 pg (27.0-31.0); MEAN PLATELET VOLUME 9.3 fl (9.6-12.3); MONO # 0.5 10*3/uL (0.1-1.0); NEUT # 4.1 10*3/uL (2.3-7.9); NEUT % 61.8 % (47.0-73.0); PLATELET COUNT AUTOMATED 158 10*3/uL (130-400); RED CELL DISTRI WIDTH 13.5 % (0-14.5); WHITE BLOOD COUNT 6.6 10*3/uL (4.8-10.8)
[2020-01-13 08:00] VITALS: BP 152/70
[2020-01-13 12:00] VITALS: BP 136/65
[2020-01-13 16:00] VITALS: BP 138/61
[2020-01-13 20:00] VITALS: BP 138/75
[2020-01-14] VITALS: BP 129/50
[2020-01-14 07:15] LABS: CREATININE 1.46 mg/dL (0.70-1.30); POTASSIUM 4.2 mmol/L (3.5-5.1)
[2020-01-14 08:00] VITALS: BP 167/66
[2020-01-14 12:00] VITALS: BP 160/58
[2020-01-14 16:00] VITALS: BP 168/80
[2020-01-14 20:00] VITALS: BP 147/66
[2020-01-15] VITALS: BP 113/50
[2020-01-15 08:00] VITALS: BP 141/64
[2020-01-15 12:00] VITALS: BP 125/60
[2020-01-15 12:43] LABS: BILIRUBIN NEGATIVE; BLOOD NEGATIVE (NEGATIVE); CLARITY CLOUDY (CLEAR); COLOR YELLOW (YELLOW); GLUCOSE 3+; KETONE NEGATIVE; SPECIFIC GRAVITY > 1.030 (1.001-1.030)
[2020-01-15 12:44] LABS: LEUKO ESTERASE 1+ (NEGATIVE); NITRITE NEGATIVE (NEGATIVE); UROBILINOGEN 0.2 E.U./dl (0.0-1.0)
[2020-01-15 12:47] LABS: BACTERIA 2+; MUCOUS 2+; WBC 51-100 wbc/hpf (0-5)
[2020-01-15 12:48] LABS: YEAST 1+
[2020-01-15 16:00] VITALS: BP 118/59
[2020-01-15 20:00] VITALS: BP 155/69
[2020-01-16] VITALS: BP 146/52
[2020-01-16 08:00] VITALS: BP 150/69
[2020-01-16 16:00] VITALS: BP 116/56
[2020-01-16 20:00] VITALS: BP 144/59
[2020-01-17 00:07] VITALS: BP 134/59
[2020-01-17 08:00] VITALS: BP 159/77
[2020-01-17 12:00] VITALS: BP 140/76
[2020-01-17] MEDS ORDERED: GLUCOPHAGE500 M1 PO (14:34)
[2020-01-17 16:00] VITALS: BP 163/58
== END 2020-01-17 17:03 | disposition home health service (06) | DRG 682 ==
LOC: ED 22:23 → EDHOLD 01-11 02:09 → 5E 01-11 02:09 → EDHOLD 01-11 02:09 → 5E 01-11 02:17 → ICCU 01-11 16:27 → 5E 01-13 08:30
PROVIDERS: Emergency Medicine; Internal Medicine; Registered Nurse; Social Worker Clinical; ADMIT Internal Medicine; ATTEND Internal Medicine
DX: N17.0 Acute kidney failure with tubular necrosis (principal); G93.41 Metabolic encephalopathy; N39.0 Urinary tract infection, site not specified; K51.00 Ulcerative (chronic) pancolitis without complications; E87.1 Hypo-osmolality and hyponatremia; R45.851 Suicidal ideations; F33.9 Major depressive disorder, recurrent, unspecified; I69.351 Hemiplegia and hemiparesis following cerebral infarction affecting right dominant side; N18.3 Chronic kidney disease, stage 3 (moderate); E86.0 Dehydration; D64.9 Anemia, unspecified; F13.10 Sedative, hypnotic or anxiolytic abuse, uncomplicated; I12.9 Hypertensive chronic kidney disease with stage 1 through stage 4 chronic kidney disease, or unspecified chronic kidney disease; E11.22 Type 2 diabetes mellitus with diabetic chronic kidney disease; Z20.828 Contact with and (suspected) exposure to other viral communicable diseases; F03.90 Unspecified dementia, unspecified severity, without behavioral disturbance, psychotic disturbance, mood disturbance, and anxiety; R80.9 Proteinuria, unspecified; D72.829 Elevated white blood cell count, unspecified; E03.9 Hypothyroidism, unspecified; E11.65 Type 2 diabetes mellitus with hyperglycemia; F12.10 Cannabis abuse, uncomplicated; R82.71 Bacteriuria; R41.0 Disorientation, unspecified; I25.2 Old myocardial infarction; Z95.5 Presence of coronary angioplasty implant and graft; Z93.2 Ileostomy status; Z90.49 Acquired absence of other specified parts of digestive tract; Z79.899 Other long term (current) drug therapy

== ENCOUNTER 2020-01-17 14:51 | Inpatient (IN) | payer OTHER ==
[~2020-01-17] VITALS: Ht 180.3 cm; Wt 67.1 kg
[~2020-01-17 14:51] MED LIST changes: +GLUCOPHAGE500 M1 PO
[2020-01-17 17:13] VITALS: BP 151/61
--- NOTE | 2020-01-17 17:24 | NUR ---
NIXON COLLINS Ezequiel a 79 year old M admitted via wheel chair from the 5TH FLOOR as a voluntary BY POA admission. Arrived on unit at 1705 . ALLERGIES: NKA . Vital signs are: [phone]/61. The client signed the following forms with stated understanding: Authorization For The Release of Medical Information, Clothing List, Consent to Voluntary Admission and Hospitalization, Consent and Release Forms/Receipt of Rights, Acknowledgement of Advance Directive Information, Behavioral Health Consent Form, and Informed Consent of Medications. Admitted under the services of Dr. KENNY HARKINS,[facility]. A search was conducted and hazardous articles were removed. Client was oriented to the unit. SEFERINO OLIVA PT ALERT TO PERSON ONLY, CONFUSION AND SHORT TERM MEMORY DEFICITS NOTED PER PT BASELINE. PT CALM. PT DENIES ANY A/V HALLUCINATIONS. PT DENIES ANY SUICIDAL THOUGHTS. PT AMBULATORY THROUHGOUT UNIT, GAIT STEADY. PT CONTINENT OF BOWEL AND BLADDER, EPISODES OF INCONTINENCE NOTED, CARE PROIVDED NEEDED.
[2020-01-17 17:25] VITALS: BP 140/60
[2020-01-17 17:29] VITALS: BP 140/60
--- NOTE | 2020-01-17 17:32 | NUR ---
SPOKE WITH DR PINON, ADVISED OF MEDICAL MANAGEMENT CONSULT NEEDED AND HOME MEDS NEEDING RECONCILED, PER DR MARADIAGA CONSULT UNDER DR ZHONG. NO FURTHER ORDERS AT THIS TIME.
--- NOTE | 2020-01-17 17:44 | NUR ---
PT BELONGINGS INVENTORIED, BELONGINGS INCLUDED 1- VISIBLY SOILED SHORT SLEEVE RED AND WHITE STRIPED SHIRT, 1- VISIBLY SOILED RED AND BLACK LONG SLEEVE SHIRT, 1 PAIR OF WHITE MENS UNDERWEAR, THAT WERE VISIBLY SOILED WITH DRIED BOWEL MOVEMENT, 1 PAIR OF VISIBLY SOILED BLUE JEANS AND A PAIR OF NONDESCRIPT BLACK SLIP ON SHOES, ALL BELONGINGS HAD A FOUL SMELLING ODOR. BELONGINGS PLACED IN WASHER AT THIS TIME. SPOKE WITH NURSING OIL PIT ATTENDANT AND NOTIFIED OF PT VISIBLY SOILED CLOTHING, PER PT HE WORE A HOSPITAL GOWN WHILE ADMITTED ON THE MEDICAL UNIT.
--- NOTE | 2020-01-17 17:59 | NUR ---
SPOKE WITH DR PINON, ADVISED THAT PT WAS NOT ORDERED BLOOD GLUCOSE CHECKS UPSTAIRS AND HAS BEEN A SOURCE OF ANGER FOR THE PT IN THE PAST WHEN WE HAD TO CHECK HIS SUGAR 3-[address] PINON HE WILL DC THE CHECKS AND INSULIN COVERAGE.
--- NOTE | 2020-01-17 18:26 | NUR ---
P: DEPRESSED MOOD WITH SAD AFFECT. I: ONE ON ONE FOR EMOTIONAL SUPPORT AND ENCOURAGE SOCIAL INTERACTION WITH STAFF AND OTHERS. R: EFFECTIVE. PATIENT IS ALERT TO SELF WITH CONFUSION; ABLE TO FOLLOW SIMPLE COMMANDS. LONG/SHORT TERM MEMORY DEFICITS. MOOD IS DEPRESSED WITH SAD AFFECT. PATIENT WANDERS ON UNIT FOLLOWING STAFF, NO AGGRESSION OBSERVED. DENIES ANY HALLUCINATIONS, DELUSIONS, HI/SI OR PAIN. NO RESPONSE TO INTERNAL STIMULI OBSERVED. MEDICATION COMPLAINT. Q 15 MINUTE SAFETY CHECKS MAINTAINED. 1 PERSON ASSIST WITH ACTIVITIES OF DAILY LIVING, INCONTINENT OF BOWEL AND BLADDER. SET UP FOR MEALS, INTAKES VARIES. AMBULATORY WITH RIGHT SIDED WEAKNESS BUT AMBULATES INDEPENDENTLY. P: CONTINUE TO MONITOR MOOD AND FOR AGGRESSION. PROVIDE ONE ON ONE, REDIRECTION/ORIENTATION NEEDED.
[2020-01-17 20:00] VITALS: BP 145/60
--- NOTE | 2020-01-17 23:33 | NUR ---
NO ADVERSE BEHAVIORS NOTED. PATIENT ALERT TO SELF, PLEASANTLY CONFUSED. PT WANDERED AROUND UNIT AT BEGINNING OF SHIFT WITH A STEADY GAIT, WOULD SMILE AND WAVE AT STAFF/PEERS DURING BRIEF INTERACTIONS OR WHEN WALKING BY. NO EXIT SEEKING BEHAVIORS OBSERVED, EASILY REDIRECTABLE NEEDED. PT ALSO SAT IN DINING ROOM FOR HS SNACK AND WATCHED A MOVIE. TOOK MEDICATIONS WITHOUT DIFFICULTY WHEN CRUSHED IN APPLESAUCE, UNABLE TO PARTICIPATE IN EDUCATION DUE TO COGNITION. PATIENT MUTE UPON ASSESSMENT, WILL NOD HEAD EITHER YES OR NO DURING QUESTIONING. PT DENIES SI/HI, HALLUCINATIONS, OR PAIN. NO NOTED RESPONDING TO INTERNAL STIMULI. PT STAND BY ASSIST X1 FOR ADLS, ALL NEEDS ANTICIPATED BY STAFF, CONTINENT /INCONTINENT OF BOWEL AND BLADDER. PT CURRENTLY LAYING DOWN WITH EYES CLOSED, RESPIRATIONS EASY AND REGULAR, NO SIGNS OR SYMPTOM OF DISTRESS NOTED. PLAN IS TO CONTINUE TO MONITOR MOOD AND BEHAVIORS. MAINTAIN Q 15 MIN CHECKS AND PRN FOR SAFETY.
--- NOTE | 2020-01-18 06:08 | NUR ---
PATIENT SLEPT APPROX 7 HOURS WITH X1 BRIEF AWAKENING TO USE THE RESTROOM WITH ASSISTANCE. NO DISTRESS NOTED.
--- NOTE | 2020-01-18 06:17 | NUR ---
DR ORTA ON UNIT TO SEE PT
--- NOTE | 2020-01-18 06:18 | NUR ---
DR ORTA ON UNIT TO SEE PT FOR MEDICAL CONSULT
--- NOTE | 2020-01-18 06:22 | NUR ---
PATIENT TOOK AM MEDICATIONS WITHOUT DIFFCULTY BUT CONTINUES TO REFUSE HOC AT THIS TIME.
[2020-01-18 07:25] VITALS: BP 152/61
--- NOTE | 2020-01-18 07:49 | NUR ---
Occupational therapy order and nursing screen received. Will follow up with the patient for completion of an OT eval. Thank you. June Bello OTR/L
--- NOTE | 2020-01-18 07:57 | NUR ---
PHYSICAL THERAPY Screen and PT eval received will follow thank you Indiana Walsh PT
--- NOTE | 2020-01-18 08:30 | NUR ---
Treatment Plan meeting was held this a.m. with MALENA Smith, RN, AT, SR. PAYROLL PROCESSOR-S and Seed Sorter. Plan for discharge Next Week. Discharge Plan is unclear at this time. APS is involved. Son has requested Placement.
--- NOTE | 2020-01-18 09:06 | NUR ---
DR. ZHONG ON UNIT TO ASSESS PATIENT.
[2020-01-18 09:57] LABS: BASO % 0.7 % (0.0-1.0); EOS # 0.1 10*3/uL (0.0-0.4); EOS % 2.4 % (1.0-4.0); HEMATOCRIT 32.4 % (42.0-52.0); LYMPH # 1.2 10*3/uL (1.3-4.4); LYMPH % 20.1 % (27.0-41.0); MEAN CELL VOLUME 93.4 fl (80.0-94.0); MEAN CORPUSCULAR HGB 30.3 pg (27.0-31.0); MEAN CORPUSCULAR HGB CONC 32.4 g/dl (33.0-37.0); MEAN PLATELET VOLUME 9.2 fl (9.6-12.3); MONO # 0.4 10*3/uL (0.1-1.0); MONO % 6.5 % (3.0-9.0); NEUT # 4.1 10*3/uL (2.3-7.9); NEUT % 69.6 % (47.0-73.0); PLATELET COUNT AUTOMATED 233 10*3/uL (130-400); RED BLOOD COUNT 3.47 10*6/uL (4.50-5.90); RED CELL DISTRI WIDTH 13.7 % (0-14.5); WHITE BLOOD COUNT 5.9 10*3/uL (4.8-10.8)
[2020-01-18 10:18] LABS: ALBUMIN 3.4 gm/dl (3.1-4.5); CREATININE 1.42 mg/dL (0.70-1.30); POTASSIUM 4.1 mmol/L (3.5-5.1); TOTAL PROTEIN 7.7 gm/dL (6.4-8.2)
[2020-01-18 10:27] LABS: THYROID STIM HORMONE (HS) 6.49 uIU/ml (0.358-4.75)
--- NOTE | 2020-01-18 10:41 | NUR ---
SPOKE WITH DR PINON AT [phone] RE: PT LABS FOR TODAY NEEDING REVIEW. NO FURTHER ORDERS AT THIS TIME.
--- NOTE | 2020-01-18 11:39 | NUR ---
AM GROUP PT WAS PRESENT FOR MORNING GROUP THERAPY SEATED IN A COMFY CHAIR RESTING. PT WAS QUIET AND CALM. PT IS UNABLE TO PARTICIPATE DUE TO COGNITIVE IMPAIRMENT. PT EXHIBITED NO ADVERSE BEHAVIORS WHILE IN GROUP.
--- NOTE | 2020-01-18 11:50 | NUR ---
Please refer to psychosocial assessment from pt's previous [facility] admission 12/26. [facility] Adult Protective Services continues to be involved with pt. Pt's son continues to be the DPOAHC for pt and at this time continues to make decisions for pt's care. Emergency guardianship is being considered but not actively pursued at this time per Radha Gastelum of [facility].
--- NOTE | 2020-01-18 11:53 | NUR ---
Lengthy conversation this AM with Radha Gastelum of [facility] Adult Protective Services. Discussed the status of pt and discharge plan for pt. While pt was on medical floor of [facility], Sena JARVISW referred pt to several NFs without a confirmed acceptance to any. Radha stated that she has been in contact with pt's son/DPOAHC Yaya García and Yaya García understands and agrees that pt cannot return home. This internal communications writer asked Radha what will prevent Yaya García from taking pt home, which has been the pattern with previous [facility] admissions. Radha stated that if Yaya García would attempt this, Radha would file for emergency guardianship. Discussed NF payer source for pt. Radha stated that Yaya García understands that most likely pt will be private pay at any NF.
--- NOTE | 2020-01-18 12:00 | NUR ---
Family meeting held this AM via the phone with pt's son/DPOAHC Yaya Hatfield Jr. Discussed pt's current status. Discussed discharge plan. Yaya García stated that he realizes that pt cannot return home. Yaya García also voiced understanding that pt will most likely be required to private pay at any NF. Yaya García stated that referrals should be made to any NF that this television script writer believes would accept pt.
--- NOTE | 2020-01-18 13:30 | NUR ---
P: PT MOOD IS SAD AND DEPRESSED I: PROVIDE EMOTIONAL SUPPORT AND 1:1 FOR PT TO VOICE FEELINGS, ENCOURAGE GROUP PARTICIPATION AND SOCIALZIATION R:PT ALERT TO PERSON ONLY, CONFUSION AND SHORT TERM MEMORY DEFICITS NOTED PER PT BASELINE. PT MED COMPLIANT WITHOUT DIFFICULTY, MED EDUCATION PROVIDED. PT REMAINS SAD AND DEPRESSED. NO AGGRESSIVE OR ASSAULTIVE BEHAVIORS NOTED. PT AMBULATORY THROUGHOUT UNIT, GAIT STEADY. PT CONTINENT OF BOWEL AND BLADDER, EPISODES OF INCONTINENCE NOTED, CARE PROVIDED NEEDED. P: MONITOR PT BEHAVIORS ON Q15 MIN SAFETY CHECKS, ENCOURAGE MED COMPLIANCE AND PROVIDE MED EDUCATION, ENCOURAGE GROUP PARTICIPATION AND SOCAILIZATION, PROVIDE EMOTIONAL SUPPORT AND 1:1 FOR PT TO VOICE FEELINGS.
--- NOTE | 2020-01-18 15:38 | NUR ---
PM GROUP PT DID NOT ATTEND AFTERNOON GROUP THERAPY. PT WAS IN BED RESTING.
[2020-01-18 20:00] VITALS: BP 146/51
--- NOTE | 2020-01-18 22:41 | NUR ---
Patient alert to self and pleasantly confused. Mood calm,cooperative but isolative to self. Patient denies any SI/HI or hallucinations. No overt s/s of any responding to internal stimuli at this time. Patient compliant with HS medications crushed in pudding without any difficulty. Provided 1:1 for emotional support. Redirected/reoriented when needed. Patient walked up and down hallway a few times with a steady gait prior to finally going to his room for bedtime. Plan to continue to encourage medication compliance. Also will continue to provide emotional support and continue to redirect/reorient when needed/appropriate. Will also continue to monitor moods/behaviors. Q 15 minute safety checks continued and maintained. See [facility] flowsheet for further documentation.
--- NOTE | 2020-01-19 05:25 | NUR ---
Patient slept approx. 7 hours throughout shift. Q 15 minute safety checks continued and maintained.
[2020-01-19 07:54] VITALS: BP 150/67
--- NOTE | 2020-01-19 08:58 | NUR ---
DR ZHONG ON UNIT TO ASSESS PT, UPDATE PROVIDED.
--- NOTE | 2020-01-19 11:22 | NUR ---
P: PT MOOD IS SAD AND DEPRESSED I: PROVIDE EMOTIONAL SUPPORT AND 1:1 FOR PT TO VOICE FEELINGS, ENCOURAGE GROUP PARTICIPATION AND SOCIALZIATION R: PT ALERT TO PERSON ONLY, CONFUSION AND SHORT TERM MEMORY DEFICITS NOTED PER PT BASELINE. PT MED COMPLIANT WITHOUT DIFFICULTY, MED EDUCATION PROVIDED. PT REMAINS SAD AND DEPRESSED. NO AGGRESSIVE OR ASSAULTIVE BEHAVIORS NOTED. PT AMBULATORY THROUGHOUT UNIT, GAIT STEADY. PT CONTINENT OF BOWEL AND BLADDER, EPISODES OF INCONTINENCE NOTED, CARE PROVIDED NEEDED. P: MONITOR PT BEHAVIORS ON Q15 MIN SAFETY CHECKS, ENCOURAGE MED COMPLIANCE AND PROVIDE MED EDUCATION, ENCOURAGE GROUP PARTICIPATION AND SOCAILIZATION, PROVIDE EMOTIONAL SUPPORT AND 1:1 FOR PT TO VOICE FEELINGS
[2020-01-19 20:00] VITALS: BP 137/62
--- NOTE | 2020-01-19 20:55 | NUR ---
ISOLATIVE FROM PEERS. ANSWERS WITH NOD OF HEAD AND HUM HUM. MEDIATION COMPLIANT. WATCHING TV. WILL MONITOR FOR CHANGES IN MOOD/BEHAVIOR AND Q15 MINS AND PRN FOR SAFETY
--- NOTE | 2020-01-19 21:15 | NUR ---
REFUSED PM CARE INCLUDING ORAL CARE. WILL CONTINUE TO MONITOR FOR CHANGES IN MOOD/BEHAVIOR AND Q 15 MINS AND PRN FOR SAFETY.
--- NOTE | 2020-01-19 21:50 | NUR ---
REFUSED PM CARE INCLUDING ORAL CARE. WILL CONTINUE TO MONITOR FOR CHANGES IN MOOD/BEHAVIOR AND Q 15 MINS AND PRN FOR SAFETY
--- NOTE | 2020-01-20 05:25 | NUR ---
24 HR chart check completed.
--- NOTE | 2020-01-20 06:17 | NUR ---
CLIENT UP FOR THE DAY. HOPELESS/HELPLESS APPEARANCE. MEDICATION COMPLIANT. SLEPT PAST 2230PM WITH APPROX 45 MINUTE INTERUPTION
[2020-01-20 07:45] VITALS: BP 160/60
--- NOTE | 2020-01-20 12:36 | NUR ---
ALERT AND ORIENTED TO PERSON WITH CONFUSION NOTED. CALM. INTERACTIVE WITH STAFF WHEN APPROACHED. NO HALLUCINATIONS OR DELUSIONS NOTED. NO SI/HI NOTED. MEDICATION COMPLIANT WITHOUT DIFFICULTY. UNABLE TO PROVIDE MEDCIATION EDUCATION DUE TO COGNITIVE IMAPIRMENT. PT IN OUT OF OTHERS ROOMS. EASILY REDIRECTED. NO ADVERSE MOODS OR BEHAVIORS NOTED. PT INCONTINENT AND CONTINENT. HYGIENE CARE PROVIDED WHEN NEEDED. ATTEMPTED TO PROVIDE 1:1 FOR THERAPEUTIC COMMUNICATION. PT HAS SLURRED AND MUMBLED SPEECH AT TIMES. PT WALKS THE HALLWAYS AND ATTEMPTS TO OPEN DORS AND LOOKS IN WINDOWS; HOWEVER NO EXIT SEEKING NOTED. BEHAVIORS MONITORED WITH Q15 MINUTE SAFETY CHECKS. SEE [facility] FLOWSHEET FOR SPECIFIC MONITORING.
[2020-01-20 20:00] VITALS: BP 143/61
--- NOTE | 2020-01-20 21:00 | NUR ---
ISOLATIVE TO ROOM BUT INTERACTIVE WITH STAFF DURING MEDICATION PASS. STATES DAY WAS OK BUT NO FURTHER VERBAGE. WILL MONITOR FOR CHANGES IN BEHAVIOR/MOOD AND Q15 MINS AND PRN FOR SAFETY
--- NOTE | 2020-01-20 22:00 | NUR ---
REFUSES PM CARE OR ASSISTANCE. REFUSES TO BRUSH TEETH
--- NOTE | 2020-01-21 02:34 | NUR ---
24 HR chart check completed.
--- NOTE | 2020-01-21 06:08 | NUR ---
SLEPT WELL PAST 2115PM. UP 2 TO VOID. HAD ONE LARGE BM
[2020-01-21 07:51] VITALS: BP 157/55
--- NOTE | 2020-01-21 08:45 | NUR ---
PHYSICAL THERAPY Attempted to see pt for evaluation, resting in bed eyes open. Currently would not respond to questions. When attempting to have pt participate in therapy pt would not move OOB, spoke with staff will attempt again at a later date. Indiana Walsh PT
--- NOTE | 2020-01-21 08:45 | NUR ---
OT NOTE Occupational therapy order received and chart reviewed. [facility] nursing gave approval to see patient. Patient supine in bed awake upon arrival. Patient currently not verbalizing or communicating responses to questions. When educated on benefits of therapy with max encouragement for out of bed activity, no response was given. No therapy provided this date. Will check back at a later date. Thank you. June Bello, OTR/L
--- NOTE | 2020-01-21 11:05 | NUR ---
PASRR submitted to prepare for discharge needs.
--- NOTE | 2020-01-21 11:21 | NUR ---
Treatment team meeting held this AM with Sarah Goss SALES APPRENTICE, RN, ppap coordinator, and SAFETY LAMP KEEPER-S. Pt will need NF placement. APS is involved. Discharge will be when pt is accepted at a NF.
--- NOTE | 2020-01-21 14:46 | NUR ---
Spoke to Nona of [facility]. Discussed status of pt referral and faxed clinical update to Nona's attention. Await return call.
--- NOTE | 2020-01-21 15:02 | NUR ---
Spoke with pt's son Yaya García and provided update about status of pt's discharge plan.
--- NOTE | 2020-01-21 15:53 | NUR ---
PM GROUP/LEISURE INTERESTS PT ATTENDED AFTERNOON GROUP THERAPY AND PARTICIPATED BY WORKING ON A [employer] FOR A FEW MINUTES. PT SAT AT A TABLE WITH PEERS AND WAS CONTENT TO OBSERVE AND LISTEN. PT EXHIBITED NO ADVERSE BEHAVIORS WHILE IN GROUP
[2020-01-21 19:08] VITALS: BP 120/65
--- NOTE | 2020-01-22 02:18 | NUR ---
P-ISOLATIVE, DEPRESSED MOOD I-REDIRECTION WITH 1:1 THERAPEUTIC INTERVENTIONS AND PRESENT REALITY. EDUCATE AND ENCOURAGE MEDICATION COMPLIANCE R-PATIENT MEDICATION COMPLIANT AT HS. PATIENT REFUSED NOURISHMENT BUT PROVIDED FLUIDS AT HS. PATIENT ISOLATIVE IN ROOM. PATIENT WITH LIMITED INTERACTION WITH STAFF AND WITH NO INTERACTION WITH PEERS. PATIENT WITH SHORT, SIMPLE RESPONSES WHEN STAFF COMMUNICATING WITH PATIENT. PATIENT WITH DEPRESSED MOOD. PATIENT WITH SHORT TERM AND NURSING HOME MEMORY DEFICITS. PATIENT WITH NO HALLUCINATIONS OR DELUSIONS. PATIENT WITH NO HOMICIDAL OR SUICIDAL IDEATIONS. P-CONTINUE TO ENCOURAGE MEDICATION COMPLIANCE, CONTINUE TO PRESENT REALITY, ENCOURAGE GROUP THERAPY WHILE AWAKE
--- NOTE | 2020-01-22 06:50 | NUR ---
PATIENT SLEPT 9 HOURS UNINTERRUPTED SLEEP THROUGHOUT SHIFT. Q 15 MINUTE CHECKS MAINTAINED. 24 HR chart check completed.
[2020-01-22 07:30] VITALS: BP 112/86
--- NOTE | 2020-01-22 07:53 | NUR ---
RUSTY Carlisle was speaking with Josiane regarding another patient referral. Josiane stated she was willing to look at this referral again and to fax to her attention. Faxed referral, waiting on review/acceptance.
--- NOTE | 2020-01-22 08:40 | NUR ---
PHYSICAL THERAPY Physical Therapy evaluation completed on U with full evaluation to follow. Recommend physical therapy per plan of care and SNF vs Home 24 hr care w HH upon discharge pending discharge planning per CM. Thank you for this referral. Indiana Walsh PT
--- NOTE | 2020-01-22 10:17 | NUR ---
SPOKE TO , MADE AWARE PT C/O FEELING SICK TO HIS STOMACH AND GESTURES THAT HE HAS STOMACH PAIN FEELING LIKE A "CLENCHING" SENSATION. MADE AWARE PT HAD BM YESTERDAY
--- NOTE | 2020-01-22 10:43 | NUR ---
Treatment team held this AM with Sarah Ruffin NP, RN, it coordinator, retail planner, and BELKYS. Patient needs NF placement. Await decisions from NFs where referrals have been sent.
--- NOTE | 2020-01-22 10:46 | NUR ---
Treatment team meeting held this AM with Sarah Ruffin NP, RN, marketing communications coordinator, FLY MAKER-S and systems planner. Patient is requiring placement, SNF into LTC. Contacted [facility] this AM and faxed referral. Waiting on review/acceptance.
--- NOTE | 2020-01-22 11:49 | NUR ---
AM GROUP PT DID NOT ATTEND MORNING GROUP THERAPY. PT WAS WALKING OR IN HIS ROOM. PT DID ENTER THE DAYROOM ONCE ONLY TO LEAVE AGAIN. PT IS UNABLE TO PARTICIPATE IN MOST ACTIVITIES DUE TO COGNITIVE IMPAIRMENT.
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
--- NOTE | 2020-01-22 14:47 | NUR ---
Spoke to [facility] who stated that pt can be accepted prior to her meeting with pt's son tomorrow afternoon. Alerted sr. merchandise planner, Dr Cano, and [facility] RN of this. Also informed Radha Gastelum of APS. automatic data processing planner attempting to arrange ambulance for AM transport.
--- NOTE | 2020-01-22 15:04 | NUR ---
Notified by BELKYS that patient was accepted to [facility] for tomorrow. Contacted [facility] and set up transport for 01/23/2020 11:00 am. Notified charge nurse in [facility], completed ambulance sheet and provided it to U.
--- NOTE | 2020-01-22 15:50 | NUR ---
PM GROUP PT WAS IN AND OUT OF THE DAYROOM DURING AFTERNOON GROUP THERAPY. PT WOULD COME IN AND SIT FOR A FEW MINUTES AND THEN LEAVE. PT EXHIBITED NO ADVERSE BEHAVIORS WHILE IN GROUP
--- NOTE | 2020-01-22 17:29 | NUR ---
NO ADVERSE MOODS OR BEHAVIORS NOTED THIS SHIFT.WILL MONITOR WITH Q15 MINUTE SAFETY CHECKS.
[2020-01-22 20:00] VITALS: BP 110/60
--- NOTE | 2020-01-23 02:39 | NUR ---
P-STABLE, CONFUSION I-REDIRECTION WITH 1:1 THERAPEUTIC INTERVENTIONS AND PRESENT REALITY. EDUCATE AND ENCOURAGE MEDICATION COMPLIANCE R-PATIENT MEDICATION COMPLIANT AT HS. PATIENT REFUSED NOURISHMENT BUT PROVIDED FLUIDS AT HS. PATIENT WITH LIMITED INTERACTION WITH STAFF AND PEERS THIS SHIFT. PATIENT AMBULATING IN ROOM AND HALLWAY. PATIENT WITH SHORT TERM AND SIMULATION EDUCATOR MEMORY DEFICITS. PATIENT WITH NO HALLUCINATIONS OR DELUSIONS. PATIENT WITH NO HOMICIDAL OR SUICIDAL IDEATIONS. P-CONTINUE TO ENCOURAGE MEDICATION COMPLIANCE, CONTINUE TO PRESENT REALITY, ENCOURAGE GROUP THERAPY WHILE AWAKE
--- NOTE | 2020-01-23 06:28 | NUR ---
PATIENT SLEPT 9-10 HOURS OF INTERRUPTED SLEEP THROUGHOUT SHIFT. Q 15 MINUTE CHECKS MAINTAINED. 24 HR chart check completed.
--- NOTE | 2020-01-23 07:15 | NUR ---
PHYSICAL THERAPY Patient seen this am for therapy visit and was standing near doorway to his room upon therapist arrival. Patient identified by name / and reports no new c/o's at this time. 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 Patient tolerated eyes open / closed x 10 seconds each without LOB and ambulated > 150'x 1, while returning to activity room chair at table awaiting breakfast. Patient remained under [facility] staff Supervision and will continue per POC as tolerated, total treatment time 16 minutes. Benjamin Benitez, LINK TRAINER MAINTENANCE MAN
--- NOTE | 2020-01-23 07:24 | NUR ---
Patient will be discharging today to [facility] for LTC. Follow-up will be with Dr Cano, visiting psychiatrist. While at [facility], pt did not have combative behaviors. Pt remained pleasantly confused. Pt wandered the unit with little interaction with staff and no interaction with his peers.
--- NOTE | 2020-01-23 07:30 | NUR ---
OT NOTE Prior to OT session therapist called [facility] and talked to nurse chan and got permission to treat pt. Pt was standing outside of bedroom doorway upon arrival, agreeable to 25 minute OT session. Identified by name and date of with no complaints. CIRCUIT BOARD ASSEMBLER and nursing both present for observation only. Functional mobility from doorway to bathroom CGA. Pt was able to stand sink side unsupported to wash hands at CGA. Standing balance F+. Functional mobility from doorway to dining martinez CGA with occasional unsteady stance, pt was able to self correct. while seated in chair pt was able to bend at waist to fix hospital socks and CGA with use of Left hand. Pts balance was challenged by weight shifting in all planes/crossing midline at CGA. standing dynamic balance F+. Pt completed LUE exercises seated in standard chair in dining room with towel in all planes with moderate resistance X10 with CGA. Pt completed RUE AAROM using left arm for as assistance and HO-CHUNK for command follow in all planes X10. [facility]c recommended [facility]. ROSMERY Callejas/TAMAR Machado/Carleen
[2020-01-23 07:35] VITALS: BP 151/65
--- NOTE | 2020-01-23 07:38 | NUR ---
SPOKE TO DR PINON TO MAKE HIM AWARE OF PATIENTS DISCHARGE TODAY TO DO HIS MEDICAL MEDICATIONS.
[2020-01-23] MEDS ORDERED: RIVASTIGMINE1 EAC2 T (08:02)
[2020-01-23] MEDS ORDERED: HYDROXYZINE HCL25 MG PO (08:02)
[2020-01-23] MEDS ORDERED: NATURE'S BLEND F1 MG PO (08:02)
[2020-01-23] MEDS ORDERED: MEMANTINE HCL10 MG PO (08:02)
[2020-01-23] MEDS ORDERED: ZIPRASIDONE HCL80 M1 PO (08:02)
[2020-01-23] MEDS ORDERED: MIRTAZAPINE15 M2 PO (08:02)
--- NOTE | 2020-01-23 08:15 | NUR ---
Contacted [facility] and notified of patients discharge and departure time. Obtained fax number [phone] and faxed discharge orders.
--- NOTE | 2020-01-23 09:54 | NUR ---
SPOKE WITH DR PINON RE: PT MEDICAL MEDS NEEDING COMPLETED FOR DC.
--- NOTE | 2020-01-23 11:12 | NUR ---
[facility] Faxed discharge orders to her attention. Phoned pt's son Yaya García and informed him of pt discharge time.
--- NOTE | 2020-01-23 11:12 | NUR ---
PATIENT DISCHARGED AND OFF OF FLOOR AT THIS TIME. PATIENT LEFT VIA HEFLIN STRETCHER, 2 EMT'S AND SECURITY. PATIENT LEFT WITH BELONGINGS.
--- NOTE | 2020-01-23 13:27 | NUR ---
OCCUPATIONAL THERAPY CO-SIGN I approve of the Occupational Therapy notes written above. MICKEY LOPEZ, OTR/L
--- NOTE | 2020-01-24 07:36 | NUR ---
PHYSICAL THERAPY CO-SIGN I approve of the Phyical Therapy notes written above. Indiana Walsh PT
== END 2020-01-23 11:12 | DRG 885 ==
LOC: 3N 14:51
PROVIDERS: ADMIT Psychiatry & Neurology Psychiatry; ATTEND Psychiatry & Neurology Psychiatry
DX: F33.3 Major depressive disorder, recurrent, severe with psychotic symptoms (principal); R45.851 Suicidal ideations; K51.00 Ulcerative (chronic) pancolitis without complications; F02.81 Dementia in other diseases classified elsewhere, unspecified severity, with behavioral disturbance; I69.351 Hemiplegia and hemiparesis following cerebral infarction affecting right dominant side; G30.9 Alzheimer's disease, unspecified; N18.3 Chronic kidney disease, stage 3 (moderate); E03.9 Hypothyroidism, unspecified; E11.65 Type 2 diabetes mellitus with hyperglycemia; I12.9 Hypertensive chronic kidney disease with stage 1 through stage 4 chronic kidney disease, or unspecified chronic kidney disease; F39 Unspecified mood [affective] disorder; E11.22 Type 2 diabetes mellitus with diabetic chronic kidney disease; I25.2 Old myocardial infarction; Z95.5 Presence of coronary angioplasty implant and graft; Z93.2 Ileostomy status; Z90.49 Acquired absence of other specified parts of digestive tract